=== PATIENT | male | born 1980 | race Caucasian/White ===

== ENCOUNTER 2018-07-27 13:29 | Day surgery (SDC) | payer SELFPAY ==
[~2018-07-27] VITALS: Ht 167.6 cm; Wt 97.0 kg
--- NOTE | 2018-07-27 13:51 | ED Chest Pain ---
General Chief Complaint: Chest Pain Stated Complaint: CHEST PAIN Source: patient Exam Limitations: no limitations History of Present Illness Date Seen by Provider: Jul 27, 2018 Time Seen by Provider: 13:48 Initial Comments ER with reports of sharp epigastric chest pain described as a pinching sensation this began one hour ago while at rest sitting on a couch. He is new to the area moved here from [place]. He has history of coronary stenting 2. One was placed in 2007 and was placed in 2014. He is supposed to be on metoprolol and atorvastatin and Plavix but states that he does not have insurance and is new to the area he's been out of these medications for a couple of weeks. He cannot identify any exacerbating or alleviating factors. He denies nausea. He does report associated dyspnea but no diaphoresis. Also reports a history of pancreatitis. Also has a headache Timing/Duration: 1 hour, constant Severity/Quality: moderate Location: central, epigastric Radiation: epigastric Activities at Onset: none ASA po NEON MOLDER: No NTG SL NEON MOLDER: No Associated Symptoms: No nausea/vomiting; shortness of breath Allergies and Home Medications Allergies Coded Allergies: tramadol (Unverified Allergy, Intermediate, 07/27/18) SEIZURES amoxicillin (Unverified Allergy, Mild, RASH, 07/27/18) gabapentin (Unverified Allergy, Mild, RASH, 07/27/18) Patient Home Medication List Home Medication List Reviewed: Yes Review of Systems Review of Systems Constitutional: see HPI; No chills, No fever EENTM: See HPI Respiratory: See HPI; Denies Cough; Shortness of Air; Denies SOA With Exertion , Denies SOA at Rest Cardiovascular: See HPI, Chest Pain Gastrointestinal: See HPI, Abdominal Pain Genitourinary: No Symptoms Reported Musculoskeletal: no symptoms reported Skin: no symptoms reported Psychiatric/Neurological: No Symptoms Reported Endocrine: No Symptoms Reported Physical Exam Vital Signs Vital Signs - First Documented 07/27/18 07/27/18 13:32 14:00 Temp 98.0 Pulse 115 Resp 15 B/P (MAP) 126/93 (104) Pulse Ox 100 O2 Delivery Room Air O2 Flow Rate 2.00 Capillary Refill : Less Than 3 Seconds Height, Weight, BMI Height: '" Weight: lbs. oz. kg; BMI Method: General Appearance: No Apparent Distress, WD/WN HEENT: PERRL/EOMI, TMs Normal, Normal ENT Inspection Neck: Full Range of Motion, Normal Inspection Respiratory: Chest Non Tender, Lungs Clear, Normal Breath Sounds, No Accessory Muscle Use, No Respiratory Distress Cardiovascular: Regular Rate, Rhythm, Normal Peripheral Pulses Gastrointestinal: Non Tender, Soft Extremity: Normal Capillary Refill, Normal Inspection Neurologic/Psychiatric: Alert, Oriented x3 Skin: Normal Color, Warm/Dry Progress/Results/Core Measures Results/Orders Lab Results Laboratory Tests Test 07/27/18 13:40 07/27/18 15:10 Range/Units White Blood Count 7.3 4.3-11.0 10^3/uL Red Blood Count 4.85 4.35-5.85 10^6/uL Hemoglobin 15.0 13.3-17.7 G/DL Hematocrit 43 40-54 % Mean Corpuscular Volume 88 80-99 FL Mean Corpuscular Hemoglobin 31 25-34 PG Mean Corpuscular Hemoglobin Concent 35 32-36 G/DL Red Cell Distribution Width 12.3 10.0-14.5 % Platelet Count 318 130-400 10^3/uL Mean Platelet Volume 9.5 7.4-10.4 FL Neutrophils (%) (Auto) 59 42-75 % Lymphocytes (%) (Auto) 29 12-44 % Monocytes (%) (Auto) 9 0-12 % Eosinophils (%) (Auto) 3 0-10 % Basophils (%) (Auto) 0 0-10 % Neutrophils # (Auto) 4.2 1.8-7.8 X 10^3 Lymphocytes # (Auto) 2.1 1.0-4.0 X 10^3 Monocytes # (Auto) 0.7 0.0-1.0 X 10^3 Eosinophils # (Auto) 0.2 0.0-0.3 10^3/uL Basophils # (Auto) 0.0 0.0-0.1 10^3/uL Prothrombin Time 12.6 12.2-14.7 SEC INR Comment 0.9 0.8-1.4 Activated Partial Thromboplast Time 25 24-35 SEC D-Dimer 0.37 0.00-0.49 UG/ML Sodium Level 139 135-145 MMOL/L Potassium Level 3.6 3.6-5.0 MMOL/L Chloride Level 107 98-107 MMOL/L Carbon Dioxide Level 22 21-32 MMOL/L Anion Gap 10 5-14 MMOL/L Blood Urea Nitrogen 13 7-18 MG/DL Creatinine 1.10 0.60-1.30 MG/DL Estimat Glomerular Filtration Rate > 60 BUN/Creatinine Ratio 12 Glucose Level 137 H 70-105 MG/DL Calcium Level 9.4 8.5-10.1 MG/DL Corrected Calcium 9.2 8.5-10.1 MG/DL Magnesium Level 2.2 1.8-2.4 MG/DL Total Bilirubin 0.5 0.1-1.0 MG/DL Aspartate Amino Transf (AST/SGOT) 24 5-34 U/L Alanine Aminotransferase (ALT/SGPT) 42 0-55 U/L Alkaline Phosphatase 68 40-136 U/L Myoglobin 30.3 10.0-92.0 NG/ML Troponin I < 0.30 <0.30 NG/ML Total Protein 7.0 6.4-8.2 GM/DL Albumin 4.2 3.2-4.5 GM/DL Lipase 341 H 8-78 U/L Thyroid Stimulating Hormone (TSH) 1.65 0.35-4.94 UIU/ML Urine Color YELLOW Urine Clarity CLEAR Urine pH 5 5-9 Urine Specific [place] 1.020 1.016-1.022 Urine Protein NEGATIVE NEGATIVE Urine Glucose (UA) NEGATIVE NEGATIVE Urine Ketones NEGATIVE NEGATIVE Urine Nitrite NEGATIVE NEGATIVE Urine Bilirubin NEGATIVE NEGATIVE Urine Urobilinogen NORMAL NORMAL MG/DL Urine Leukocyte Esterase 1+ H NEGATIVE Urine RBC (Auto) NEGATIVE NEGATIVE Urine RBC NONE /HPF Urine WBC 2-5 /HPF Urine Crystals NONE /LPF Urine Bacteria NONE /HPF Urine Casts NONE /LPF Urine Mucus SMALL H /LPF Urine Culture Indicated NO Urine Opiates Screen NEGATIVE NEGATIVE Urine Oxycodone Screen NEGATIVE NEGATIVE Urine Methadone Screen NEGATIVE NEGATIVE Urine Propoxyphene Screen NEGATIVE NEGATIVE Urine Barbiturates Screen NEGATIVE NEGATIVE Ur Tricyclic Antidepressants Screen NEGATIVE NEGATIVE Urine Phencyclidine Screen NEGATIVE NEGATIVE Urine Amphetamines Screen NEGATIVE NEGATIVE Urine Methamphetamines Screen NEGATIVE NEGATIVE Urine Benzodiazepines Screen NEGATIVE NEGATIVE Urine Cocaine Screen NEGATIVE NEGATIVE Urine Cannabinoids Screen NEGATIVE NEGATIVE My Orders Orders - KAYLA [employer] Cbc With Automated Diff (07/27/18 13:37) Magnesium (07/27/18 13:37) Chest 1 View, Ap/Pa Only (07/27/18 13:37) Ekg Tracing (07/27/18 13:37) Cardiac Profile 1 (07/27/18 13:37) Comprehensive Metabolic Panel (07/27/18 13:37) Myoglobin Serum (07/27/18 13:37) Protime With Inr (07/27/18 13:37) Partial Thromboplastin Time (07/27/18 13:37) O2 (07/27/18 13:37) Monitor-Rhythm Ecg Trace Only (07/27/18 13:37) Lipid Panel (07/28/18 06:00) Saline Lock/Iv-Start (07/27/18 13:37) Drug Screen Stat (Urine) (07/27/18 13:40) Ua Culture If Indicated (07/27/18 13:40) Thyroid Stimulating Hormone (07/27/18 13:41) Clopidogrel Tablet (Plavix Tablet) (07/27/18 14:00) Ketorolac Injection (Toradol Injection) (07/27/18 14:00) Lipase (07/27/18 13:46) Metoprolol Succinate (Xl) Tab (Toprol Xl (07/27/18 14:00) Fibrin Degradation Products (07/27/18 13:40) Aspirin Chewable Tablet (Baby Aspirin Ch (07/27/18 14:00) Ct Abdomen/Pelvis W (07/27/18 14:15) Iohexol Injection (Omnipaque 350 Mg/Ml 1 (07/27/18 14:30) Ns (Ivpb) (Sodium Chloride 0.9%) (07/27/18 14:30) Contrast Received (Contrast Received) (07/27/18 14:45) Morphine Injection (Morphine Injection (07/27/18 15:30) Medications Given in ED Current Medications Medications Dose Ordered Sig/Faisal Route Start Time Stop Time Status Last Admin Dose Admin Aspirin 324 mg ONCE ONCE PO 07/27/18 14:00 07/27/18 14:02 DC 07/27/18 14:08 324 MG Clopidogrel Bisulfate 75 mg ONCE ONCE PO 07/27/18 14:00 07/27/18 14:01 DC 07/27/18 14:06 75 MG Iohexol 100 ml ONCE ONCE IV 07/27/18 14:30 07/27/18 14:31 DC 07/27/18 14:59 100 ML Ketorolac Tromethamine 15 mg ONCE ONCE IVP 07/27/18 14:00 07/27/18 14:01 DC 07/27/18 14:05 15 MG Metoprolol Succinate 25 mg ONCE ONCE PO 07/27/18 14:00 07/27/18 14:01 DC 07/27/18 14:05 25 MG Morphine Sulfate 4 mg ONCE ONCE IVP 07/27/18 15:30 07/27/18 15:31 DC 07/27/18 16:07 4 MG Sodium Chloride 250 ml ONCE ONCE IV 07/27/18 14:30 07/27/18 14:31 DC 07/27/18 15:00 80 ML Vital Signs/I&O 07/27/18 07/27/18 07/27/18 13:32 13:39 14:00 Temp 98.0 Pulse 115 Resp 15 B/P (MAP) 126/93 (104) Pulse Ox 100 96 O2 Delivery Room Air Room Air Nasal Cannula O2 Flow Rate 2.00 Progress Progress Note : Progress Note 1350-aspirin metoprolol Plavix and Toradol ordered. Heart rate 1:15 sinus no ectopy. Q waves in inferior leads. Blood pressure 130/100. States that he has historically been intolerant of nitroglycerin as it has made him nauseous, vomited and worsened his headache. He would rather not use that at this time because he states urine he has a headache. Departure Communication (Admissions) Time/Spoke to Admitting Phy: 16:[address] Quiles. We will admit, consult cardiology Time/Spoke to Consulting Phy: 16:[address] Bahena, would like Lexiscan stress test for tomorrow, 2-D echocardiogram. Impression Primary Impression: Chest pain Additional Impression: Pancreatitis Disposition: 01 HOME, SELF-CARE Condition: Stable Admissions Decision to Admit Reason: Admit from ER (General) Decision to Admit/Date: Jul 27, 2018 Time/Decision to Admit Time: 16:28 Departure-Patient Inst. Referrals: UNKNOWN (PCP) Primary Care Physician KAYLA TO APRN Jul 27, 2018 13:51
[2018-07-27 13:53] LABS: BASOPHILS % (AUTO) 0 % (0-10); EOSINOPHILS # (AUTO) 0.2 10^3/uL (0.0-0.3); EOSINOPHILS % (AUTO) 3 % (0-10); HEMATOCRIT 43 % (40-54); LYMPHOCYTES # (AUTO) 2.1 X 10^3 (1.0-4.0); LYMPHOCYTES % (AUTO) 29 % (12-44); MEAN CORPUSCULAR HEMOGLOBIN 31 PG (25-34); MEAN CORPUSCULAR HGB CONC 35 G/DL (32-36); MEAN CORPUSCULAR VOLUME 88 FL (80-99); MEAN PLATELET VOLUME 9.5 FL (7.4-10.4); MONOCYTES # (AUTO) 0.7 X 10^3 (0.0-1.0); MONOCYTES % (AUTO) 9 % (0-12); NEUTROPHILS # (AUTO) 4.2 X 10^3 (1.8-7.8); NEUTROPHILS % (AUTO) 59 % (42-75); PLATELET COUNT 318 10^3/uL (130-400); RED BLOOD COUNT 4.85 10^6/uL (4.35-5.85); RED CELL DISTRIBUTION WIDTH 12.3 % (10.0-14.5); WHITE BLOOD COUNT 7.3 10^3/uL (4.3-11.0)
[2018-07-27] MEDS ORDERED: CLOPIDOGREL 75 MG (PLAVIX) TABLET PO ONE (14:00)
[2018-07-27] MEDS ORDERED: KETOROLAC 30 MG/ML VIAL IVP ONE (14:00)
[2018-07-27] MEDS ORDERED: ASPIRIN 81 MG CHEW (CHILDREN'S ASA) PO ONE (14:00)
[2018-07-27 14:09] LABS: FIBRIN DEGRADATION PRODUCTS 0.37 UG/ML (0.00-0.49); INR 0.9 (0.8-1.4); PROTHROMBIN TIME PATIENT 12.6 SEC (12.2-14.7)
[2018-07-27 14:13] LABS: ALANINE AMINOTRANSFERASE 42 U/L (0-55); ALBUMIN 4.2 GM/DL (3.2-4.5); ALKALINE PHOSPHATASE 68 U/L (40-136); BILIRUBIN,TOTAL 0.5 MG/DL (0.1-1.0); BUN/CREATININE RATIO 12; CALCIUM 9.4 MG/DL (8.5-10.1); CARBON DIOXIDE 22 MMOL/L (21-32); CHLORIDE 107 MMOL/L (98-107); GFR ESTIMATED > 60; GLUCOSE 137 MG/DL (70-105); MAGNESIUM 2.2 MG/DL (1.8-2.4); POTASSIUM 3.6 MMOL/L (3.6-5.0); SODIUM 139 MMOL/L (135-145)
[2018-07-27 14:23] LABS: MYOGLOBIN SERUM 30.3 NG/ML (10.0-92.0)
[2018-07-27] MEDS ORDERED: IOHEXOL 350 MG/ML 100 ML (OMNIPAQUE 350) VIAL IV ONE (14:30)
[2018-07-27] MEDS ORDERED: NS 250 ML (IVPB) BAG IV ONE (14:30)
--- NOTE | 2018-07-27 14:38 | Diagnostic Imaging Report ---
INDICATION: Chest pain. Time of exam 2:26 PM No prior studies are available for comparison. The heart size is normal. The pulmonary vascularity is unremarkable. The lungs are clear. No infiltrate, effusion or pneumothorax is detected. Impression: No acute cardiopulmonary process is detected. Dictated by: Dictated on workstation # [id number]
[2018-07-27] MEDS ORDERED: RECEIVED CONTRAST (Hold Metformin) IV SCH (14:45)
--- NOTE | 2018-07-27 15:18 | Diagnostic Imaging Report ---
PROCEDURE: CT abdomen and pelvis with contrast. TECHNIQUE: Multiple contiguous axial images were obtained through the abdomen and pelvis after administration of intravenous contrast. INDICATION: Epigastric pain. History of pancreatitis. COMPARISON: None. FINDINGS: Included portions of the lung bases are clear. CT abdomen: There are few scattered colonic diverticula, but there is no CT evidence of acute diverticulitis. Normal appendix is identified. Small bowel loops are nondistended. The kidneys, adrenal glands, spleen, pancreas, and liver have a normal CT appearance. There is no loculated fluid collection, free fluid, or free air within the abdomen. No abnormal mesenteric or retroperitoneal adenopathy is seen. Bony structures show no acute abnormalities. CT pelvis: Urinary bladder is grossly unremarkable and minimally distended. There is no loculated fluid collection, free fluid, or free air within the pelvis. No abnormal lymph nodes are identified. Bony structures show no acute abnormalities. IMPRESSION: 1. No acute abnormalities within the abdomen or pelvis. 2. Colonic diverticulosis, but no CT evidence of acute diverticulitis. Dictated by: Dictated on workstation # [id number]
[2018-07-27 15:26] LABS: BILIRUBIN,URINE NEGATIVE (NEGATIVE); CLARITY,URINE CLEAR; COLOR,URINE YELLOW; GLUCOSE, URINE (UA) NEGATIVE (NEGATIVE); KETONES,URINE NEGATIVE (NEGATIVE); LEUKOCYTE ESTERASE ,URINE 1+ (NEGATIVE); NITRITE,URINE NEGATIVE (NEGATIVE); PH,URINE 5 (5-9); PROTEIN,URINE NEGATIVE (NEGATIVE); UROBILINOGEN,URINE NORMAL (NORMAL)
[2018-07-27] MEDS ORDERED: morphine INJ 10 MG/ML 1ML (SYR OR VIAL) IVP ONE (15:30)
[2018-07-27 15:51] LABS: AMPHETAMINE SCREEN, URINE NEGATIVE (NEGATIVE); BARBITURATE SCREEN URINE NEGATIVE (NEGATIVE); BENZODIAZEPINES SCREEN URINE NEGATIVE (NEGATIVE); CANNABINOID SCREEN, URINE NEGATIVE (NEGATIVE); COCAINE SCREEN URINE NEGATIVE (NEGATIVE); METHADONE STAT NEGATIVE (NEGATIVE); METHAMPHETAMINE SCREEN URINE S NEGATIVE (NEGATIVE); OPIATE SCREEN URINE NEGATIVE (NEGATIVE); OXYCODONE STAT NEGATIVE (NEGATIVE); PROPOXYPHENE STAT NEGATIVE (NEGATIVE); TRICYCLIC ANTIDEPRESSANTS SCRE NEGATIVE (NEGATIVE)
[2018-07-27 16:42] VITALS: BP 136/95
[2018-07-27] MEDS: morphine INJ 4 MG/ML 1 ML (VIAL/SYRINGE) IV PRN ×2 (17:03→21:10)
[2018-07-27] MEDS: NS IV 1000 ML 1,000 ML IV SCH (17:03)
--- NOTE | 2018-07-27 17:53 | Diagnostic Imaging Report ---
PROCEDURE: US Gallbladder. TECHNIQUE: Multiple real-time grayscale images were obtained over the right upper quadrant in various projections. INDICATION: Pancreatitis. Chest pain. FINDINGS: The pancreas could not be well evaluated due to overlying bowel gas. The liver demonstrates no evidence of a focal intrahepatic abnormality. There is no evidence of intrahepatic biliary ductal dilatation. There is hepatopetal flow in the main portal vein. The gallbladder appears nondistended. No definitive gallstones present. There is no gallbladder wall thickening or evidence of pericholecystic fluid. The common bile duct could not be visualized. The right kidney is nonobstructed. No free fluid evident. IMPRESSION: 1. The pancreas and the common bile duct could not be sonographically demonstrated. 2. There are however no findings to suggest cholelithiasis or cholecystitis or evidence of intrahepatic biliary dilatation. 3. No evidence of free fluid. 4. No focal intrahepatic abnormality. Dictated by: Dictated on workstation # [id number]
[2018-07-27 20:52] VITALS: BP 129/87
[2018-07-28] VITALS (20 sets, daily range): BP systolic 107–145; BP diastolic 65–93
[2018-07-28] MEDS ORDERED: CALCIUM CARBONATE 500 MG (TUMS) TAB.CHEW ONE (00:33)
[2018-07-28] MEDS ORDERED: CALCIUM CARBONATE 500 MG (TUMS) TAB.CHEW PO PRN (00:45)
[2018-07-28] MEDS: NS IV 1000 ML 1,000 ML IV SCH ×3 (01:16→12:42)
[2018-07-28] MEDS: morphine INJ 4 MG/ML 1 ML (VIAL/SYRINGE) IV PRN ×4 (01:17→16:43)
[2018-07-28 06:14] LABS: CHOLESTEROL 190 MG/DL (< 200); HDL CHOLESTEROL 29 MG/DL (40-60); TRIGLYCERIDES 157 MG/DL (<150); VLDL CHOLESTEROL 31 MG/DL (5-40)
[2018-07-28] MEDS ORDERED: CATHETER FLUSH 10 ML SYR IV PRN (07:00)
[2018-07-28] MEDS ORDERED: REGADENOSON 0.4 MG/5 ML SYR (LEXISCAN) IV ONE ×2 (08:01→08:45)
[2018-07-28] MEDS ORDERED: ASPIRIN 81 MG CHEW (CHILDREN'S ASA) PO SCH (09:00)
[2018-07-28] MEDS ORDERED: CLOPIDOGREL 75 MG (PLAVIX) TABLET PO SCH (09:00)
--- NOTE | 2018-07-28 09:52 | Consultation-Cardiology ---
HPI-Cardiology Cardiology Consultation: Date of Consultation 07/28/18 Date of Admission Attending Physician nAila Quiles DO Admitting Physician Judy,Local Physician Consulting Physician Stefany BAHENA MD HPI: Time Seen by Provider: 08:30 Chief Complaint: Chest pain This is a 38-year-old gentleman who complained with persistent chest pain substernal. 06/23. No significant radiation. No other cardiac symptoms associated. No exacerbating or relieving factors. He has history of 2 PCI in 2015. He denies diabetes, active smoking or drug abuse. Persistent chest pain with some improvement with IV morphine. Review of Systems-Cardiology Review of Systems Constitutional: As described under HPI; No As described under HPI, No no symptoms reported, No chills, No fever, No lightheadedness Eyes: No As described under HPI, No no symptoms reported, No blindness, No blurred vision, No contact lenses, No drainage, No decreased acuity, No foreign body sensation, No pain, No vision change Ears/Nose/Throat: No As described under HPI, No no symptoms reported, No chronic hearing loss, No ear discharge, No ear pain, No nasal drainage, No ulcerations Respiratory: No no symptoms reported; As described under HPI; No As described under HPI, No cough, No orthopnea, No shortness of breath, No SOB with excertion Cardiovascular: No no symptoms reported; As described under HPI; No As described under HPI, No chest pain, No edema, No irregular heart rate, No lightheadedness, No palpitations Gastrointestinal: No no symptoms reported, No As described under HPI, No abdomen distended, No abdominal pain, No blood streaked bowels, No constipation , No diarrhea, No nausea, No vomiting, No stool coloration changes Genitourinary: No As described under HPI, No burning, No dysuria, No discharge , No frequency, No flank pain, No hematuria, No urgency Musculoskeletal: No no symptoms reported, No As describe under HPI, No back pain, No gout, No joint pain, No joint swelling, No muscle pain, No muscle stiffness, No neck pain, No other Skin: No no symptoms reported, No As described under HPI, No change in color, No change in hair/nails, No dryness, No lesions, No lumps, No rash, No other, No skin related problems, No ulcerations, No rash on exposed areas, No ulcerations on exposed areas Psychiatric/Neurological: No anxiety, No depression, No seizure, No focal weakness, No syncope Hematologic: No bleeding abnormalities ODE-Kysvxl-Frfupu Hx Patient Social History Alcohol Use: Denies Use Recreational Drug Use: No Smoking Status: Never a Smoker 2nd Hand Smoke Exposure: Yes Recent Foreign Travel: Yes Recent Infectious Disease Expo: No Hospitalization with Isolation: Denies Physical Abuse Screen: No Sexual Abuse: No Past Medical History PMH As described under Assessment. Family Medical History Family History: Cardiovascular disease 19 FATHER 19 MOTHER FH: CHF (congestive heart failure) 19 FATHER FH: throat cancer 19 MOTHER Allergies and Home Medications Allergies Coded Allergies: tramadol (Verified Allergy, Intermediate, 07/27/18) SEIZURES amoxicillin (Verified Allergy, Mild, RASH, 07/27/18) gabapentin (Verified Allergy, Mild, RASH, 07/27/18) Home Medications Aspirin 81 Mg Tablet.dr, 81 MG PO DAILY, (Reported) Aspirin/Acetaminophen/Caffeine 1 Each Powd.pack, 1 PACKET PO UD PRN for HEADACHE , (Reported) Metoprolol Tartrate 50 Mg Tablet, 50 MG PO BID, (Reported) Patient Home Medication List Home Medication List Reviewed: Yes Physical Exam-Cardiology Physical Exam Vital Signs/I&O 07/28/18 07/28/18 07/28/18 07/28/18 01:00 04:05 07:00 08:31 Temp 98.9 Pulse 88 76 81 80 Resp 18 B/P (MAP) 131/82 (98) 126/85 (99) Pulse Ox 98 96 O2 Delivery Room Air 07/28/18 07/28/18 07/28/18 07/28/18 08:35 10:00 10:07 11:40 Temp 96.7 96.1 Pulse 101 78 82 Resp 16 16 B/P (MAP) 145/93 (110) 137/90 (106) 144/84 (104) Pulse Ox 96 98 92 O2 Delivery Room Air Room Air Room Air 07/28/18 00:00 Intake Total 1460 ml Balance 1460 ml Capillary Refill : Less Than 3 Seconds Constitutional: appears stated age, AAO x 3; No apparent distress; well- developed, well-nourished HEENT: PERRL; No normal ENT inspection, No TMs normal, No pharynx normal, No scleral icterus (R), No scleral icterus (L), No pale conjunctivae (R), No pale conjunctivae (L), No photophobia, No TM abnormal (R), No TM abnormal (L), No pharyngeal erythema, No tonsillar exudate, No other, No discharge, No EOMI; hearing is well preserved; No hard of hearing; oral hygience is good; No ulceration, No xanthelasmas are seen Neck: No non-tender, No full range of motion, No supple, No normal inspection, No carotid bruit, No limited range of motion, No lymphadenopathy (R), No lymphadenopathy (L), No tender lateral, No tender midline, No thyromegaly, No other; carotid pulses are 2 + bilaterally; No with good upstrokes Respiratory: No accessory muscle use, No respiratory distress, No chest tender , No chest expansion is symmetric; chest is bilaterally symmetric; No lungs clear to percussion; lungs clear to auscultation; No crackles, No rhonchi, No rales, No stridor, No wheezing, No pleural rub, No other Cardiovascular: regular rate-rhythm; No irregularly irregular, No extra beats, No parasternal heave is noted, No JVD, No edema, No bradycardia, No tachycardia , No point of maximal impulse, No cardiac thrills are palpable; S1 and S2; No gallop/S3, No gallop/S4, No diastolic murmur, No systolic murmur, No friction rub, No click, No other Gastrointestinal: No tender, No soft, No round, No distended, No pulsatile mass , No organomegaly, No guarding, No rebound, No tenderness, No hernia, No mass, No audible bowel sounds, No abnormal bowel sounds, No abdominal bruits, No spleenomegaly, No other Rectal: deferred Extremities: No normal range of motion, No non-tender, No normal inspection, No pedal edema, No calf tenderness, No normal capillary refill, No pelvis stable , No calf tenderness, No inflammation, No pedal edema, No slow capillary refill , No swelling, No other, No abrasion, No clubbing, No cyanosis, No ecchymosis, No laceration, No no lower extremity edema bilateral, No significant edema, No tenderness, No wound Neurologic/Psychiatric: No statistical machine servicer II-XII nml as tested; no motor/sensory deficits , alert, normal mood/affect, oriented x 3; No abnormal cerebellar tests, No abnormal statistical machine servicer II-XII, No abnormal gait, No aphasia, No EOM palsy, No facial droop , No motor weakness, No sensory deficit, No depressed affect, No disoriented x 3 , No other, No grossly intact; power is 5/5 both on sides Skin: No normal color, No warm/dry, No cyanosis, No cool, No diaphoresis, No damp, No ecchymosis, No jaundice, No mottled, No pallor, No rash, No tattoos/ piercings, No ulcerations, No rash on exposed areas, No ulcerations on exposed areas, No other Data Review Labs Laboratory Tests 07/27/18 13:40: White Blood Count 7.3, Red Blood Count 4.85, Hemoglobin 15.0, Hematocrit 43, Mean Corpuscular Volume 88, Mean Corpuscular Hemoglobin 31, Mean Corpuscular Hemoglobin Concent 35, Red Cell Distribution Width 12.3, Platelet Count 318, Mean Platelet Volume 9.5, Neutrophils (%) (Auto) 59, Lymphocytes (%) (Auto) 29, Monocytes (%) (Auto) 9, Eosinophils (%) (Auto) 3, Basophils (%) (Auto) 0, Neutrophils # (Auto) 4.2, Lymphocytes # (Auto) 2.1, Monocytes # (Auto) 0.7, Eosinophils # (Auto) 0.2, Basophils # (Auto) 0.0, Prothrombin Time 12.6, INR Comment 0.9, Activated Partial Thromboplast Time 25, D-Dimer 0.37, Sodium Level 139, Potassium Level 3.6, Chloride Level 107, Carbon Dioxide Level 22, Anion Gap 10, Blood Urea Nitrogen 13, Creatinine 1.10, Estimat Glomerular Filtration Rate > 60, BUN/Creatinine Ratio 12, Glucose Level 137H, Calcium Level 9.4, Corrected Calcium 9.2, Magnesium Level 2.2, Total Bilirubin 0.5, Aspartate Amino Transf (AST/SGOT) 24, Alanine Aminotransferase (ALT/SGPT) 42, Alkaline Phosphatase 68, Myoglobin 30.3, Troponin I < 0.30, Total Protein 7.0, Albumin 4.2, Lipase 341H, Thyroid Stimulating Hormone (TSH) 1.65 07/27/18 15:10: Urine Color YELLOW, Urine Clarity CLEAR, Urine pH 5, Urine Specific [place] 1.020, Urine Protein NEGATIVE, Urine Glucose (UA) NEGATIVE, Urine Ketones NEGATIVE, Urine Nitrite NEGATIVE, Urine Bilirubin NEGATIVE, Urine Urobilinogen NORMAL, Urine Leukocyte Esterase 1+H, Urine RBC (Auto) NEGATIVE, Urine RBC NONE , Urine WBC 2-5, Urine Crystals NONE, Urine Bacteria NONE, Urine Casts NONE, Urine Mucus SMALLH, Urine Culture Indicated NO, Urine Opiates Screen NEGATIVE, Urine Oxycodone Screen NEGATIVE, Urine Methadone Screen NEGATIVE, Urine Propoxyphene Screen NEGATIVE, Urine Barbiturates Screen NEGATIVE, Ur Tricyclic Antidepressants Screen NEGATIVE, Urine Phencyclidine Screen NEGATIVE, Urine Amphetamines Screen NEGATIVE, Urine Methamphetamines Screen NEGATIVE, Urine Benzodiazepines Screen NEGATIVE, Urine Cocaine Screen NEGATIVE, Urine Cannabinoids Screen NEGATIVE 07/27/18 20:05: Troponin I < 0.30 07/28/18 01:52: Troponin I < 0.30 07/28/18 05:03: Triglycerides Level 157H, Cholesterol Level 190, LDL Cholesterol Direct 145H, VLDL Cholesterol 31, HDL Cholesterol 29L, Lipase 49 ECG Impression ECG Initial ECG Rhythm: Normal Sinus A/P-Cardiology Assessment/Admission Diagnosis Unstable angina, History of CAD Plan Unstable angina- ACS ruled out with negative serial troponin. Negative EKG. Nuclear stress test today. If abnormal will require coronary angiography. History of CAD: Continue aspirin, statin, beta marguerite, lisinopril. We will follow-up as an outpatient. Thank you for your consultation. Please call me if you have any questions. Trina Bahena MD, FACP, FACC, FSCAI, FHRS, CCDS Interventional Cardiology Cardiac Electrophysiology Vascular Medicine and Endovascular Interventions Clinical Quality Measures AMI/AHF: ASA po Prior to arrival: No DVT/VTE Risk/Contraindication: Risk Factor Score Per Nursin RFS Level Per Nursing on Admit: 2=Moderate Stefany BAHENA MD Jul 28, 2018 9:52 am
--- NOTE | 2018-07-28 09:53 | Cardiology Stress Test Report ---
Stress Test Report Type of NM Stress Test: Test Type: LEXISCAN 0.4MG/5ML Date of Procedure/Referring: Date of Procedure: Jul 28, 2018 PCP Anila Quiles DO Admitting Physician No,Local Physician Indications: Chest pain Baseline Heart Rate: 79 Baseline Blood Pressure: Blood Pressure Systolic: 126 Blood Pressure Diastolic: 85 Baseline EKG: Baseline EKG: sinus rhythm Summary & Conclusion: Summary: The patient was brought to the stress lab after informed consent was taken. Stress test was performed according to the Lexiscan protocol. 0.4 mg of IV Lexiscan was given. Low-grade exercise was performed. Baseline EKG showed sinus rhythm at 79 BPM. Initial blood pressure was 126/85 mmHg. Maximum heart rate was 102 bpm and blood pressure 145/93 mmHg. Patient did not have any chest pain, arrhythmias or ST segment changes during the stress test. 10.99 mCi of Myoview were given for rest imaging and 32 mCi of Myoview given for stress imaging. Transient ischemic dilatation score 1.12, EF 66 percent. Normal wall motion. Fixed defect in the apex. Reversible defect in the anterior/anterior septal region. Conclusion: Pharmacological stress test was negative for ischemia. Normal LV function with no wall motion abnormalities. Evidence of previous anterior-apical infarct. Evidence of anterior-septal ischemia - Coronary angiography is recommended. Stefany GLOVER MD Jul 28, 2018 09:53
[2018-07-28] MEDS ORDERED: ASPI1POW PO (10:04)
[2018-07-28] MEDS ORDERED: ASPI-983 PO (10:04)
[2018-07-28] MEDS ORDERED: METO50TA15 PO ×2 (10:09→14:13)
[2018-07-28] MEDS ORDERED: LORazepam INJ 2 MG/ML (ATIVAN) VIAL IVP PRN (10:15)
[2018-07-28] MEDS ORDERED: HEParin 1000 UNIT/ML (10ML VIAL) FOR BOLUS ONE (10:33)
[2018-07-28] MEDS ORDERED: LIDOCAINE 1% INJ 20 ML 20 ML VIAL ONE (10:33)
[2018-07-28] MEDS ORDERED: NS IV 1000 ML 3,000 ML ONE (10:34)
--- NOTE | 2018-07-28 10:57 | History & Physical-Hospitalist ---
History of Present Illness HPI/Chief Complaint CC: Chest pain HPI: This is a 38-year-old white male who previously had an WI 30 years old status post stent placement and again remotely had another WI with another stent placed who presented to the ER with chest pain. Was nonspecific and not really accompanied by any concerning signs but due to the risk factors he was placed in observation status and monitored. Troponin remained normal. Patient just had an abnormal cardiac stress test so he will have cardiac catheterization at noon today. Patient reports his anxiety is overwhelming currently so will give anxiolytics. Source: patient, RN/MD Exam Limitations: no limitations Date Seen 07/28/18 Time Seen by Provider: 10:00 Attending Physician Anila Quiles DO PCP No,Local Physician Referring Physician Date of Admission Jul 27, 2018 at 16:27 Home Medications & Allergies Home Medications Reviewed patient Home Medication Reconciliation performed by pharmacy medication reconciliations qc lab technician and/or nursing. Patients Allergies have been reviewed. Allergies Allergies Coded Allergies tramadol (Verified Allergy, Intermediate, 07/27/18) SEIZURES amoxicillin (Verified Allergy, Mild, RASH, 07/27/18) gabapentin (Verified Allergy, Mild, RASH, 07/27/18) Past Pfhhrrr-Qvqdja-Iiduvr Hx Past Med/Social Hx: Reviewed Nursing Past Med/Soc Hx, Reviewed and Corrections made Patient Social History Marrital Status: cohabiting Alcohol Use: Denies Use Recreational Drug Use: No Smoking Status: Never a Smoker 2nd Hand Smoke Exposure: Yes Physical Abuse Screen: No Sexual Abuse: No Recent Foreign Travel: Yes Contact w/other who traveled: No Recent Hopitalizations: No Recent Infectious Disease Expo: No Seasonal Allergies Seasonal Allergies: No Past Medical History Surgeries: Coronary Stent Cardiac: Heart Attack, High Cholesterol, Hypertension Gastrointestinal: Pancreatitis History of Blood Disorders: No Family History Cardiovascular disease 19 FATHER 19 MOTHER FH: CHF (congestive heart failure) 19 FATHER FH: throat cancer 19 MOTHER Review of Systems Constitutional: see HPI EENTM: no symptoms reported Respiratory: no symptoms reported Cardiovascular: chest pain Gastrointestinal: no symptoms reported Genitourinary: no symptoms reported Musculoskeletal: no symptoms reported Skin: no symptoms reported Psychiatric/Neurological: No Symptoms Reported All Other Systems Reviewed Negative Unless Noted: Yes Physical Exam Physical Exam Vital Signs Vital Signs - First Documented 07/27/18 07/27/18 13:32 14:00 Temp 98.0 Pulse 115 Resp 15 B/P (MAP) 126/93 (104) Pulse Ox 100 O2 Delivery Room Air O2 Flow Rate 2.00 Capillary Refill : Less Than 3 Seconds Height, Weight, BMI Height: 5'6.00" Weight: 213lbs. 13.4oz. 96.349336eg; 34.5 BMI Method:Estimated General Appearance: No Apparent Distress, WD/WN, Chronically ill, Obese Eyes: Bilateral Eye Normal Inspection, Bilateral Eye PERRL HEENT: PERRL/EOMI, TMs Normal, Normal ENT Inspection, Pharynx Normal Neck: Full Range of Motion, Normal Inspection, Non Tender, Supple, Carotid Bruit Respiratory: Chest Non Tender, Lungs Clear, Normal Breath Sounds, No Accessory Muscle Use, No Respiratory Distress Cardiovascular: Regular Rate, Rhythm, No Edema, No Gallop, No JVD, No Murmur, Normal Peripheral Pulses Gastrointestinal: Normal Bowel Sounds, No Organomegaly, No Pulsatile Mass, Non Tender, Soft Back: Normal Inspection, No CVA Tenderness, No Vertebral Tenderness Extremity: Normal Capillary Refill, Normal Inspection, Normal Range of Motion, Non Tender, No Calf Tenderness, No Pedal Edema Neurologic/Psychiatric: Alert, Oriented x3, No Motor/Sensory Deficits, Normal Mood/Affect, Other (anxious) Skin: Normal Color, Warm/Dry Lymphatic: No Adenopathy Results Results/Procedures Labs Laboratory Tests 07/27/18 13:40 Patient resulted labs reviewed. Assessment/Plan Admission Diagnosis Chest pain in known early CAD patient Plan: Cardiac cath Admission Status: Observation Diagnosis/Problems Diagnosis/Problems (1) Chest pain Status: Acute Qualifiers: Chest pain type: unspecified Qualified Codes: R07.9 - Chest pain, unspecified (2) Anxiety Status: Chronic Clinical Quality Measures AMI/AHF: ASA po Prior to arrival: No DVT/VTE Risk/Contraindication: Risk Factor Score Per Nursin RFS Level Per Nursing on Admit: 2=Moderate ANILA QUILES DO Jul 28, 2018 10:57
[2018-07-28] MEDS ORDERED: MIDAZOLAM 5 MG/5 ML (VERSED) VIAL ONE (11:10)
[2018-07-28] MEDS ORDERED: fentaNYL INJECTION 100 MCG/2 ML AMP ONE (11:10)
[2018-07-28] MEDS ORDERED: VERAPAMIL 5 MG/2 ML (CALAN) VIAL IV ONE (11:10)
[2018-07-28] MEDS ORDERED: NITRO DRIP 25000 MCG/D5W 250 ML IV ONE (11:10)
[2018-07-28] MEDS ORDERED: NS IV 1000 ML 1,000 ML IV SCH (12:40)
--- NOTE | 2018-07-28 12:40 | Cardiac Procedure Note-CS/ASA ---
Pre-Procedure Note Pre-Op Procedure Note H&P Reviewed The H&P was reviewed, patient examined and no changes noted. Date H&P Reviewed: Jul 28, 2018 Time H&P Reviewed: 12:00 Conscious Sedation Pre-Proced Time Reviewed: 12:00 ASA Class: 3 Airway Mallampati Classification: ([place] appropriate class) I. II. III, IV Lungs Heart ASA score ASA 1: a normal healthy patient ASA 2: a patient with a mild systemic disease (mid diabetes, controlled hypertension, obesity ASA 3: a patient with a severe systemic disease that limits activity (angina , COPD, prior Myocardial infarction) ASA 4: a patient with an incapacitating disease that is a constant threat to life (CHF, renal failure) ASA 5: a moribund patient not expected to survive 24 hrs. (ruptured aneurysm) ASA 6: a declared brain patient whose organs are being harvested. For emergent operations, add the letter E after the classification Grade 1 Sedation Plan: Analgesia, Amnesia, Plan communicated to team members, Discussed options with patient/fam, Discussed risks with patient/fam Note The patient is an appropriate candidate to undergo the planned procedure, sedation, and anesthesia. The patient immediately re-assessed prior to indication. Stefany GLOVER MD Jul 28, 2018 12:40 pm
[2018-07-28] MEDS ORDERED: PATIENT MAY USE OWN MEDS, ALL PO SCH (12:45)
--- NOTE | 2018-07-28 12:45 | Coronary Angiography Report ---
Coronary Angiography Report DATE OF PROCEDURE: 07/28/18 INDICATION: Unstable angina, abnormal nuclear stress test. PREOPERATIVE DIAGNOSIS: Unstable angina, abnormal nuclear stress test. POSTOPERATIVE DIAGNOSIS: Patent LAD stent. No significant CAD noted. HISTORY: This is a 38-year-old gentleman who has previous history of PCI 2. He presented with persistent chest pain. Troponin was negative 2. Nuclear stress test showed evidence of old apical infarct, however, anterior septal reversible ischemia was noted. Therefore, the patient was scheduled for coronary angiography. PROCEDURES PERFORMED: 1.Coronary angiography. 2.Left heart catheterization. 3. Aortic arch angiogram. COMPLICATIONS: None. SPECIMENS: None. ESTIMATED BLOOD LOSS: 10 mL ANESTHESIA: Conscious sedation ANTICOAGULATION: IV heparin CONTRAST: 98 cc. FLUOROSCOPY: 7.7 minutes. FLOUROSCOPY DOSE: 695 mgy. PROCEDURE DETAILS: The patient is a 38 male and was brought to the director of labor relations after informed consent was taken. All the risks and complications were explained in detail; this included the risk of bleeding, vascular damage, stroke , HI and even . The patient was draped and prepped in the usual sterile fashion. Access was gained in the right radial artery with a 6 [place] sheath. Coronary angiography and left heart catheterization was performed with the [place] catheter. FINDINGS: 1.Left main: Patent. 2.LAD: Patent proximal LAD stent. No significant disease noted. 3.Left circumflex artery: Patent. 4.RCA: Patent. 5.Left heart catheterization: Aortic pressure 107/79 mmHg. LV pressure 110/19 mmHg. LVEDP 25 mmHg. Normal LV function with mild apical hypokinesis was noted. No other wall motion abnormalities. No gradient across the aortic valve. 6. Aortic arch angiogram: No evidence of dissection or aneurysm. Patent proximal segments of the great arteries including brachiocephalic artery, common carotid artery, left subclavian artery. CONCLUSIONS: Patent stent in the LAD. No other CAD noted. Normal LV function with elevated LVEDP noted which suggest diastolic dysfunction. Continue secondary prevention measures. Trina Bahena MD, FACP, FACC, [facility] Interventional Cardiology Stefany BAHENA MD Jul 28, 2018 12:45 pm
[2018-07-28] MEDS ORDERED: ATOR20TA66 PO (14:13)
[2018-07-28] MEDS ORDERED: LISI-556 PO (14:13)
[2018-07-28] MEDS ORDERED: ATORVASTATIN 20 MG (LIPITOR) TABLET PO SCH (21:00)
[2018-07-29] MEDS ORDERED: lisINopril 5 MG (PRINIVIL) TABLET PO SCH (09:00)
[2018-07-29] MEDS ORDERED: lisINopril 40 MG (PRINIVIL) TABLET PO SCH (09:00)
== END 2018-07-28 17:25 | disposition home or self-care (01) ==
LOC: ER 13:30 → 4TH 16:27 → UNDOADMOB 16:27 → CATH 16:42 → 4TH 16:42 → UNDODISOB 07-28 17:25 → CATH 07-28 17:25
PROVIDERS: ATTEND Internal Medicine
DX: I25.110 Atherosclerotic heart disease of native coronary artery with unstable angina pectoris (principal); Z95.5 Presence of coronary angioplasty implant and graft; K85.90 Acute pancreatitis without necrosis or infection, unspecified; I08.0 Rheumatic disorders of both mitral and aortic valves; I25.2 Old myocardial infarction; I10 Essential (primary) hypertension; E78.00 Pure hypercholesterolemia, unspecified; F41.9 Anxiety disorder, unspecified; Z79.82 Long term (current) use of aspirin; Z79.899 Other long term (current) drug therapy
CPT/HCPCS: 36221; 36415; 71045; 74177; 76705; 78452; 80053; 80061; 80306; 81000; 83690; 83735; 83874; 84443; 84484; 85025; 85379; 85610; 85730; 93005; 93017; 93041; 93306; 93458; 96374; 96375; G0378

== ENCOUNTER 2018-08-02 10:25 | Emergency (ER) | payer SELFPAY ==
[~2018-08-02] VITALS: Ht 167.6 cm; Wt 96.6 kg
[~2018-08-02 10:25] MED LIST: ASPI-983 PO; ASPI1POW PO; ATOR20TA66 PO; LISI-556 PO; METO50TA15 PO
--- NOTE | 2018-08-02 11:44 | ED Upper Extremity ---
General Chief Complaint: Upper Extremity Stated Complaint: R ARM PAIN AFTER HEART CATH Nursing Triage Note: ARRIVED VIA AMB TO TRIAGE WITHOUT DIFFICULTY. COMPLAINS OF RIGHT LOWER ARM PAIN SINCE TUESDAY. STATES HE HAD A HEART CATH LAST TUESDAY AND THE CATH WENT THRU HIS RIGHT ARM. Nursing Sepsis Screen: No Definite Risk History of Present Illness Date Seen by Provider: Aug 02, 2018 Time Seen by Provider: 11:35 Initial Comments 38 year old male presents for right forearm pain that began yesterday. He had a heart catheterization on 07/28/[address] Glover, access was gained through the right radial artery. He had no forearm pain after the catheterization, he also had a peripheral IV in the right forearm proximal to the cath site. Due to financial constraints, he has not began taking the Plavix or Metroprolol that he was prescribed at discharge. He does not take aspirin and is unable to take ibuprofen due to an allergy. He reports calling the heart center, and being told to come to the emergency department for evaluation. He did not contact Dr. Glover's office, as his appt is in late August. He does not have a primary care provider. His main complaint is a feeling of "fullness and pain" in the right mid forearm. it is positional. He denies feeling the right upper extremity is cool, decreased sensation, or any associated weakness. A stent was not placed during his catheterization, he does report previous heart catheterizations with stents that the femoral artery was always the access site. He denies taking pain medication prior to arrival for his symptoms. Onset: yesterday Pain/Injury Location: right forearm Method of Injury: other (post cardiac catheterization right forearm access site ) Allergies and Home Medications Allergies Coded Allergies: tramadol (Verified Allergy, Intermediate, 07/27/18) SEIZURES amoxicillin (Verified Allergy, Mild, RASH, 07/27/18) gabapentin (Verified Allergy, Mild, RASH, 07/27/18) Home Medications Aspirin 81 Mg Tablet., 81 MG PO DAILY, (Reported) Atorvastatin Calcium 20 Mg Tablet, 20 MG PO HS Prescribed by: EMETERIO NICOLE on 07/28/18 1413 Lisinopril 5 Mg Tablet, 5 MG PO DAILY@0900 Prescribed by: EMEETRIO NICOLE on 07/28/18 1413 Metoprolol Tartrate 50 Mg Tablet, 50 MG PO BID Prescribed by: EMETERIO NICOLE on 07/28/18 1413 Patient Home Medication List Home Medication List Reviewed: Yes Review of Systems Constitutional: no symptoms reported, see HPI Cardiovascular: see HPI, Hx of Intervention (heart catheterization 07/28/18) Musculoskeletal: see HPI, muscle pain (right upper extremity, forearm), muscle stiffness Skin: see HPI, change in color (ecchymosis, right forearm) All Other Systems Reviewed Negative Unless Noted: Yes Past Jehqwmp-Vlgzas-Gzpsqw Hx Past Med/Social Hx: Reviewed Nursing Past Med/Soc Hx Patient Social History 2nd Hand Smoke Exposure: Yes Recent Foreign Travel: No Contact w/Someone Who Travel: No Recent Infectious Disease Expo: No Recent Hopitalizations: No Seasonal Allergies Seasonal Allergies: No Past Medical History Surgeries: Yes (HEART CATH) Coronary Stent Respiratory: Yes Asthma Cardiac: Yes (HEART STENTS X2- 1 IN 2007, 1 IN 2014) Heart Attack, High Cholesterol, Hypertension Neurological: No Genitourinary: No Gastrointestinal: Yes Pancreatitis Musculoskeletal: No Endocrine: No HEENT: No Cancer: No Psychosocial: No Integumentary: No Blood Disorders: No Family Medical History Cardiovascular disease 19 FATHER 19 MOTHER FH: CHF (congestive heart failure) 19 FATHER FH: throat cancer 19 MOTHER Physical Exam Vital Signs Vital Signs - First Documented 08/02/18 10:45 Temp 98.2 Pulse 93 Resp 16 B/P (MAP) 131/87 (102) Pulse Ox 96 O2 Delivery Room Air Capillary Refill : Less Than 3 Seconds Height, Weight, BMI Height: 5'6.00" Weight: 213lbs. 13.4oz. 96.152491xu; 34.5 BMI Method:Stated General Appearance: WD/WN, no apparent distress Neck: non-tender, full range of motion, supple, normal inspection Cardiovascular: normal peripheral pulses, regular rate, rhythm, no murmur Respiratory: chest non-tender, lungs clear, normal breath sounds Gastrointestinal: normal bowel sounds, non tender, soft Shoulder: normal inspection, non-tender, no evidence of injury, normal ROM Elbow/Forearm: normal inspection, non-tender, no evidence of injury, normal ROM , Right Wrist: Yes normal inspection, Yes non-tender, Yes no evidence of injury, Yes normal ROM Hand: normal inspection, non-tender, no evidence of injury, normal ROM, Right Neurologic/Tendon: normal sensation, normal motor functions, normal tendon functions Neurologic/Psychiatric: no motor/sensory deficits, alert, normal mood/affect, oriented x 3 Skin: normal color, warm/dry, other (Right UE pink, warm and dry, temperature symmetric with left. Radial and Brachial pulse 2 +, Ulnar pulse 1+. Immediate return of color to right hand with modified Ajay test) Resisted flex/ext of the fingers, wrist, elbow, shoulder V/V. Resisted Pronation /Supination of forearm V/V. Progress/Results/Core Measures Results/Orders My Orders Orders - JESSE CASTILLO Us Right Up Ext Arterial [id number] (08/02/18 11:45) Clopidogrel Tablet (Plavix Tablet) (08/02/18 11:45) Acetaminophen Tablet/Caplet (Tylenol T (08/02/18 12:10) Medications Given in ED Current Medications Medications Dose Ordered Sig/Faisal Route Start Time Stop Time Status Last Admin Dose Admin Clopidogrel Bisulfate 75 mg ONCE ONCE PO 08/02/18 11:45 08/02/18 11:47 DC 08/02/18 11:54 75 MG Vital Signs/I&O 08/02/18 10:45 Temp 98.2 Pulse 93 Resp 16 B/P (MAP) 131/87 (102) Pulse Ox 96 O2 Delivery Room Air Blood Pressure Mean: 102 Progress Progress Note : Time: 11:35 Progress Note Initial evaluation completed. Other than minimal ecchymosis at the cannulation site right forearm, his exam is essentially normal right upper extremity with no neuro and vascular compromise detected. In light of the fact he has not been on anticoagulants, we will consider an ultrasound. [address] Glover by phone, reviewed the patient's assessment findings. Recommended arterial ultrasound of the right upper extremity and Plavix 75 mg by mouth. Plan was discussed with the patient and he agreed with this. 1210 patient reporting pain in right forearm to be 8/10, will administer Tylenol 650 mg orally. 1255 per it telecom technician, no venous or arterial occlusions noted right upper extremity. Results were discussed with the patient. 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 Will provide him a note to be off work for today and tomorrow. Discharge instructions and return precautions reviewed with him. Diagnostic Imaging Diagonstic Imaging: Ultrasound Comments NAME: ANNALISA OLIVIER [facility] REC#: [id number] PT STATUS: REG ER : 1980 PHYSICIAN: JESSE CASTILLO ADMIT DATE: 08/02/18/ER Draft Date of Exam:08/02/18 US RIGHT UP EXT ARTERIAL [id number] INDICATION: Right arm pain, four days post heart catheterization. TECHNIQUE: Multiple real time ya scale sonographic images along with duplex Doppler evaluation was obtained of the right upper extremity. CORRELATION STUDY: None FINDINGS: The area of recent access port in the radial artery and vein demonstrates a patency of the vessels. Normal pulsatility. No soft tissue fluid collections or findings suggestive of the presence of pseudoaneurysm and/or hematoma. IMPRESSION: 1.Limited Doppler assessment of the right upper extremity in the area of recent percutaneous access demonstrates a patency of the right radial artery and vein. No evidence to suggest significant of pseudoaneurysm, thrombus formation or soft tissue hematoma. Dictated on workstation # [id number] Dict: 08/02/18 1313 Trans: 08/02/18 1320 CV [id number] Interpreted by: STEVEN WILLIS DO Electronically signed by: Reviewed: Reviewed by Me Departure Impression Primary Impression: Forearm pain Qualified Codes: M79.631 - Pain in right forearm Additional Impression: right arm pain post cardiac catheterization Disposition: 01 HOME, SELF-CARE Condition: Improved Departure-Patient Inst. Decision time for Depature: 12:55 Referrals: NO,LOCAL PHYSICIAN (PCP/Family) Primary Care Physician Patient Instructions: Cardiac Catheterization (DC) Add. Discharge Instructions: Begin taking the Plavix and metoprolol as prescribed at her time of discharge. You may take Tylenol 650 mg every 6 hours as needed for pain. Alternate between ice and warm moist compresses to the right forearm. Follow-up with Dr. Glover if symptoms are not improving or worsen [phone] Return to emergency Department if pain worsens, right hand or wrist become cold to touch, right hand or wrist become pale, or new complaints. All discharge instructions reviewed with patient and/or family. Voiced understanding. Work/School Note: Work Release Form Date Seen in the Emergency Department: Aug 02, 2018 Return to Work: Aug 04, 2018 Restrictions: No Restrictions Copy Copies To 1: Stefany GLOVER MD, AMY ARNP Aug 02, 2018 11:44
[2018-08-02] MEDS ORDERED: CLOPIDOGREL 75 MG (PLAVIX) TABLET PO ONE (11:45)
[2018-08-02] MEDS ORDERED: ACETAMINOPHEN 325 MG TABLET PO STA (12:10)
[2018-08-02 13:15] VITALS: BP 140/89
--- NOTE | 2018-08-02 13:20 | Diagnostic Imaging Report ---
INDICATION: Right arm pain, four days post heart catheterization. TECHNIQUE: Multiple real time ya scale sonographic images along with duplex Doppler evaluation was obtained of the right upper extremity. CORRELATION STUDY: None FINDINGS: The area of recent access port in the radial artery and vein demonstrates a patency of the vessels. Normal pulsatility. No soft tissue fluid collections or findings suggestive of the presence of pseudoaneurysm and/or hematoma. IMPRESSION: 1.Limited Doppler assessment of the right upper extremity in the area of recent percutaneous access demonstrates a patency of the right radial artery and vein. No evidence to suggest significant of pseudoaneurysm, thrombus formation or soft tissue hematoma. Dictated by: Dictated on workstation # [id number]
== END 2018-08-02 13:15 | disposition home or self-care (01) ==
LOC: EDUNIT# 10:25 → ER 10:26
DX: G89.18 Other acute postprocedural pain (principal); M79.631 Pain in right forearm; J45.909 Unspecified asthma, uncomplicated; E78.00 Pure hypercholesterolemia, unspecified; I10 Essential (primary) hypertension; Z82.49 Family history of ischemic heart disease and other diseases of the circulatory system; Z80.0 Family history of malignant neoplasm of digestive organs; Z87.19 Personal history of other diseases of the digestive system; Z98.890 Other specified postprocedural states; Z88.6 Allergy status to analgesic agent; Z88.0 Allergy status to penicillin; Z88.8 Allergy status to other drugs, medicaments and biological substances; Z79.82 Long term (current) use of aspirin; Z77.22 Contact with and (suspected) exposure to environmental tobacco smoke (acute) (chronic); Z95.5 Presence of coronary angioplasty implant and graft
CPT/HCPCS: 93931; 99283

== ENCOUNTER 2019-02-27 10:37 | Emergency (ER) | payer SELFPAY ==
[~2019-02-27] VITALS: Ht 167.6 cm; Wt 99.8 kg
--- NOTE | 2019-02-27 11:25 | ED Integumentary General ---
General Chief Complaint: Laceration Stated Complaint: FINGER LAC Nursing Triage Note: PT AMB TO TRIAGE WITH COMPLAINT OF FINGER LACERATION. PT STATES HAPPENED LAST NIGHT AROUND 11 PM. STATES EMS WAS CALLED DUE TO HIM PASSING OUT FROM THE SIGHT OF BLOOD. PT STATES HE CUT IT WHILE WORKING ON HIS GUITAR. DOES NOT KNOW WHEN LAST TETANUS WAS. Source: patient Exam Limitations: no limitations History of Present Illness Date Seen by Provider: Feb 27, 2019 Time Seen by Provider: 11:21 Initial Comments 38-year-old male who presents to the emergency room with complaints of a right index finger laceration. He reports that he was working on a guitar last night around 11:00 with a pocketknife when the blade closed on to his right index finger. He is not up-to-date on his tetanus vaccine. He has a 1.5 semicircular superficial laceration to his right index finger. Timing/Duration: yesterday Location: hands (right index finger) Associated Symptoms: denies symptoms Allergies and Home Medications Allergies Coded Allergies: tramadol (Verified Allergy, Intermediate, 07/27/18) SEIZURES amoxicillin (Verified Allergy, Mild, RASH, 07/27/18) gabapentin (Verified Allergy, Mild, RASH, 07/27/18) Home Medications Aspirin 81 Mg Tablet.dr, 81 MG PO DAILY, (Reported) Atorvastatin Calcium 20 Mg Tablet, 20 MG PO HS Prescribed by: EMETERIO NICOLE on 07/28/18 1413 Lisinopril 5 Mg Tablet, 5 MG PO DAILY@0900 Prescribed by: EMETERIO NICOLE on 07/28/18 1413 Metoprolol Tartrate 50 Mg Tablet, 50 MG PO BID Prescribed by: EMETERIO NICOLE on 07/28/18 1413 Patient Home Medication List Home Medication List Reviewed: Yes Review of Systems Review of Systems Constitutional: see HPI; No chills, No fever Skin: see HPI, other (laceration to left index finger.) All Other Systems Reviewed Negative Unless Noted: Yes Past Ehwqnfa-Nuozpo-Vqzjzc Hx Past Med/Social Hx: Reviewed Nursing Past Med/Soc Hx Patient Social History Alcohol Use: Occasionally Uses Recreational Drug Use: No Smoking Status: Never a Smoker 2nd Hand Smoke Exposure: Yes Recent Foreign Travel: No Contact w/Someone Who Travel: No Recent Infectious Disease Expo: No Recent Hopitalizations: No Immunizations Up To Date Tetanus Booster (TDap): Unknown Seasonal Allergies Seasonal Allergies: No Past Medical History Surgeries: Yes (HEART CATH) Coronary Stent, Orthopedic Respiratory: Yes Asthma Cardiac: Yes (HEART STENTS X2- 1 IN 2007, 1 IN 2014) Heart Attack, High Cholesterol, Hypertension Neurological: No Genitourinary: No Gastrointestinal: Yes Pancreatitis Musculoskeletal: No Endocrine: No HEENT: No Cancer: No Psychosocial: No Integumentary: No Blood Disorders: No Family Medical History Reviewed Nursing Family Hx Cardiovascular disease 19 FATHER 19 MOTHER FH: CHF (congestive heart failure) 19 FATHER FH: throat cancer 19 MOTHER Physical Exam Vital Signs Vital Signs - First Documented 02/27/19 11:07 Pulse 74 Resp 20 B/P (MAP) 152/89 (110) Pulse Ox 98 O2 Delivery Room Air Capillary Refill : Less Than 3 Seconds General Appearance: WD/WN, no apparent distress Cardiovascular: normal peripheral pulses, regular rate, rhythm, no edema, no gallop, no JVD, no murmur Respiratory: chest non-tender, lungs clear, normal breath sounds, no respiratory distress, no accessory muscle use Skin: normal color, warm/dry Skin Problem Location: upper extremities (left index finger laceration see hpi. ) Procedures/Interventions Wound Location: Upper Extremities Other Wound Location Right index finger Wound Length (cm): 1.5 Wound's Depth, Shape: superficial Wound Explored: clean Irrigated w/ Saline (ccs): 50 Other Closure Supply: Wound Adhesive Progress The wound was thoroughly cleaned and irrigated with normal saline. The wound edges were approximated and skin affix was applied. Patient tolerated procedure well. Progress/Results/Core Measures Results/Orders My Orders Orders - BERNOT,BENNIE Dipht,Pertuss(Acell),Tet Adult (Boostrix (02/27/19 11:30) Vital Signs/I&O 02/27/19 02/27/19 11:07 12:25 Pulse 74 74 Resp 20 20 B/P (MAP) 152/89 (110) 152/89 (110) Pulse Ox 98 98 O2 Delivery Room Air Blood Pressure Mean: 110 Departure Impression Primary Impression: Laceration Disposition: 01 HOME, SELF-CARE Condition: Stable/Unchanged Departure-Patient Inst. Decision time for Depature: 11:23 Referrals: NO,LOCAL PHYSICIAN (PCP/Family) Primary Care Physician Patient Instructions: Laceration Repair With Glue (DC) Add. Discharge Instructions: Watch for signs of infection such as increased redness, swelling, drainage, pain. Let the glue fall off on its own. Do not pick at the glue, do not use any lotions, soaps, ointments directly to the glue. Follow-up with your primary care provider within 1 week for recheck. Return back to the emergency room for worsening symptoms or concerns as needed. All discharge instructions reviewed with patient and/or family. Voiced understanding. BENNIE ROONEY Feb 27, 2019 11:25
[2019-02-27] MEDS ORDERED: TETANUS,DIPTH,PERTUSS P/F (BOOSTRIX) 0.5 ML VIAL IM ONE (11:30)
[2019-02-27 12:25] VITALS: BP 152/89
== END 2019-02-27 12:25 | disposition home or self-care (01) ==
LOC: EDUNIT# 10:37 → ER 10:37
DX: S61.210A Laceration without foreign body of right index finger without damage to nail, initial encounter (principal); J45.909 Unspecified asthma, uncomplicated; I25.2 Old myocardial infarction; E78.00 Pure hypercholesterolemia, unspecified; I10 Essential (primary) hypertension; Z82.49 Family history of ischemic heart disease and other diseases of the circulatory system; Z80.0 Family history of malignant neoplasm of digestive organs; Z87.19 Personal history of other diseases of the digestive system; Z88.6 Allergy status to analgesic agent; Z88.0 Allergy status to penicillin; Z88.8 Allergy status to other drugs, medicaments and biological substances; Z79.82 Long term (current) use of aspirin; Z77.22 Contact with and (suspected) exposure to environmental tobacco smoke (acute) (chronic); Z95.5 Presence of coronary angioplasty implant and graft; W26.0XXA Contact with knife, initial encounter
CPT/HCPCS: 90715

== ENCOUNTER 2019-10-10 17:38 | Emergency (ER) | payer SELFPAY ==
[~2019-10-10] VITALS: Ht 167.7 cm; Wt 98.6 kg
[2019-10-10 18:11] LABS: BILIRUBIN,URINE NEGATIVE (NEGATIVE); CLARITY,URINE CLEAR; COLOR,URINE YELLOW; GLUCOSE, URINE (UA) NEGATIVE (NEGATIVE); KETONES,URINE NEGATIVE (NEGATIVE); LEUKOCYTE ESTERASE ,URINE NEGATIVE (NEGATIVE); NITRITE,URINE NEGATIVE (NEGATIVE); PH,URINE 5.5 (5-9); PROTEIN,URINE NEGATIVE (NEGATIVE)
[2019-10-10] MEDS ORDERED: KETOROLAC 30 MG/ML VIAL IVP ONE (18:15)
[2019-10-10] MEDS ORDERED: ONDANSETRON 4 MG/2 ML (SDV) Z0FRAN IVP ONE (18:15)
[2019-10-10 18:21] LABS: AMORPHOUS SEDIMENT,UR FEW AMOR URATES /LPF; BACTERIA,URINE NEGATIVE /HPF
[2019-10-10 18:47] LABS: BASOPHILS % (AUTO) 0 % (0-10); EOSINOPHILS # (AUTO) 0.1 10^3/uL (0.0-0.3); EOSINOPHILS % (AUTO) 2 % (0-10); HEMATOCRIT 45 % (40-54); HEMOGLOBIN 15.5 G/DL (13.3-17.7); LYMPHOCYTES # (AUTO) 2.3 X 10^3 (1.0-4.0); LYMPHOCYTES % (AUTO) 26 % (12-44); MEAN CORPUSCULAR HEMOGLOBIN 30 PG (25-34); MEAN CORPUSCULAR HGB CONC 34 G/DL (32-36); MEAN CORPUSCULAR VOLUME 88 FL (80-99); MEAN PLATELET VOLUME 9.6 FL (7.4-10.4); MONOCYTES # (AUTO) 0.7 X 10^3 (0.0-1.0); MONOCYTES % (AUTO) 8 % (0-12); NEUTROPHILS # (AUTO) 5.7 X 10^3 (1.8-7.8); NEUTROPHILS % (AUTO) 64 % (42-75); PLATELET COUNT 345 10^3/uL (130-400); RED CELL DISTRIBUTION WIDTH 12.8 % (10.0-14.5); WHITE BLOOD COUNT 8.9 10^3/uL (4.3-11.0)
[2019-10-10] MEDS ORDERED: fentaNYL INJECTION 100 MCG/2 ML AMP IVP ONE (19:00)
[2019-10-10 19:01] LABS: ALANINE AMINOTRANSFERASE 54 U/L (0-55); ALBUMIN 4.5 GM/DL (3.2-4.5); ALKALINE PHOSPHATASE 76 U/L (40-136); BILIRUBIN,TOTAL 0.2 MG/DL (0.1-1.0); BUN/CREATININE RATIO 13; CALCIUM 9.6 MG/DL (8.5-10.1); CARBON DIOXIDE 23 MMOL/L (21-32); CHLORIDE 105 MMOL/L (98-107); CREATININE SERUM 1.09 MG/DL (0.60-1.30); GFR ESTIMATED > 60; GLUCOSE 114 MG/DL (70-105); LIPASE 105 U/L (8-78); POTASSIUM 3.9 MMOL/L (3.6-5.0); SODIUM 140 MMOL/L (135-145); TOTAL PROTEIN 7.9 GM/DL (6.4-8.2)
--- NOTE | 2019-10-10 19:01 | NUR ---
REPORT GIVEN TO HERNANDO SHAFER
--- NOTE | 2019-10-10 19:28 | Diagnostic Imaging Report ---
PROCEDURE: CT urinary tract, rule out kidney stone. TECHNIQUE: Multiple contiguous axial images were obtained through the abdomen and pelvis without the use of intravenous contrast. Auto Exposure Controls were utilized during the CT exam to meet ALARA standards for radiation dose reduction. INDICATION: Low back pain. FINDINGS: The lung bases demonstrate no focal infiltrate or evidence of consolidation. There is no effusion. The noncontrast appearance of the liver is unremarkable. Gallbladder nondistended without radiodense gallstones. There is no biliary dilatation. The pancreas appears unremarkable. The spleen is normal in size. There are several small splenules. There is no adrenal mass. The kidneys appear nonobstructed. There is no hydronephrosis. There is no focal renal stone but a subtle suggestion the possibility some early nephrocalcinosis. The small and large bowel are normal in caliber without evidence of obstruction. There is advanced sigmoid diverticulosis but no current findings of diverticulitis. There is moderate stool within the colon. The appendix is normal. There is no free air, free fluid or abscess. Urinary bladder unremarkable. There are fat-containing inguinal hernias. There are no pathologically enlarged lymph nodes. There are mild atherosclerotic calcifications within the aorta. There is no acute or suspicious osseous abnormality evident within the spine. There are mild multilevel degenerative endplate changes. There does appear to likely be moderate canal stenosis at the L4-L5 level. IMPRESSION: 1. No CT evidence of an acute inflammatory or obstructive process within the abdomen or pelvis. 2. There is no hydronephrosis or focal renal stone. There is a subtle suggestion that there may be some early developing nephrocalcinosis. 3. Sigmoid diverticulosis without diverticulitis or bowel obstruction. 4. No focal inflammation or free fluid. 5. No acute osseous abnormality. There is likely moderate canal stenosis at L4-L5. Dictated by: Dictated on workstation # [id number]
[2019-10-10] MEDS ORDERED: RX-HYDROCODONE/APAP 5/325 MG #4 TAB PK PO PRN (20:00)
[2019-10-10] MEDS ORDERED: predniSONE 20 MG TAB PO ONE (20:00)
--- NOTE | 2019-10-10 20:00 | ED Abdominal Pain ---
General Chief Complaint: Back Problems Stated Complaint: POSS KIDNEY STONE Nursing Triage Note: Pt amb to triage with c/o bilat flank discomfort for approx x1 month. Pt reports hematuria and dysuria on 10/06/19. Denies fever or chills. Reports hx kidney stones requiring surgical intervention. Sepsis Screen: No Definite Risk Source of Information: Patient Exam Limitations: No Limitations History of Present Illness Date Seen by Provider: Oct 10, 2019 Time Seen by Provider: 18:07 Initial Comments This 39-year-old man presents to the emergency room with primary complaint of bilateral lower back pain and some generalized abdominal discomfort. He has been experiencing this pain for about a month. This has become more intense in recent days. He reports having kidney stones within the past year and a half. He has required interventions for ureteral stones in the past including basket retrievals and lithotripsy. He describes the pain in his back as a deep aching or throbbing with intermittent sharp stabbing pain. 4 days ago he reports having rust colored urine and dysuria. He does not have a local urologist. He also reports increase in abdominal girth in recent months causing discomfort. He also has numerous soft bowel movements each day. He reports his symptoms today are similar to symptoms he has had with prior ureteral stones. His primary care provider is Dr. Lynne. He denies any lower extremity weakness or numbness, saddle paresthesia, or difficulty controlling bowels or bladder. Patient denied any drug, alcohol, or tobacco use. Allergies and Home Medications Allergies Coded Allergies: tramadol (Verified Allergy, Intermediate, 07/27/18) SEIZURES amoxicillin (Verified Allergy, Mild, RASH, 07/27/18) gabapentin (Verified Allergy, Mild, RASH, 07/27/18) erythromycin base (Verified Allergy, Unknown, 10/10/19) Home Medications Aspirin 81 Mg Tablet., 81 MG PO DAILY, (Reported) Atorvastatin Calcium 20 Mg Tablet, 20 MG PO HS Prescribed by: EMETERIO NICOLE on 07/28/18 1413 Lisinopril 5 Mg Tablet, 5 MG PO DAILY@0900 Prescribed by: EMETERIO NICOLE on 07/28/18 1413 Metoprolol Tartrate 50 Mg Tablet, 50 MG PO BID Prescribed by: EMETERIO NICOLE on 07/28/18 1413 Prednisone 20 Mg Tab, 20 MG PO DAILY Prescribed by: NITESH GARCÍA on 10/10/192003 Patient Home Medication List Home Medication List Reviewed: Yes Review of Systems Review of Systems Constitutional: no symptoms reported EENTM: No Symptoms Reported Respiratory: No Symptoms Reported Cardiovascular: No Symptoms Reported Gastrointestinal: See HPI Genitourinary: See HPI Musculoskeletal: see HPI Skin: no symptoms reported Psychiatric/Neurological: No Symptoms Reported Endocrine: No Symptoms Reported Hematologic/Lymphatic: No Symptoms Reported Past Tucpsxs-Jutyic-Ursssd Hx Past Med/Social Hx: Reviewed and Corrections made Patient Social History Alcohol Use: Rarely Uses Number of Drinks Today: 0 Recreational Drug Use: No Smoking Status: Never a Smoker 2nd Hand Smoke Exposure: Yes Recent Foreign Travel: No Contact w/Someone Who Travel: No Recent Infectious Disease Expo: No Recent Hopitalizations: No Immunizations Up To Date Tetanus Booster (TDap): Unknown Seasonal Allergies Seasonal Allergies: No Past Medical History Surgeries: Yes (HEART CATH, x2 STENTS) Coronary Stent, Orthopedic, Renal (Lithotripsy and basket retrieval) Respiratory: Yes Asthma Cardiac: Yes (HEART STENTS X2- 1 IN 2007, 1 IN 2014) Coronary Artery Disease, Heart Attack, High Cholesterol, Hypertension Neurological: Yes Headaches /Migraines Genitourinary: Yes Kidney Stones Gastrointestinal: Yes Pancreatitis Musculoskeletal: No Endocrine: No HEENT: No Cancer: No Psychosocial: No Integumentary: No Blood Disorders: No Family Medical History Reviewed Nursing Family Hx Cardiovascular disease 19 FATHER 19 MOTHER FH: CHF (congestive heart failure) 19 FATHER FH: throat cancer 19 MOTHER Physical Exam Vital Signs Vital Signs - First Documented 10/10/19 17:44 Temp 36.9 Pulse 77 Resp 16 B/P (MAP) 128/87 (101) Pulse Ox 99 O2 Delivery Room Air Capillary Refill : Less Than 3 Seconds Height/Weight/BMI Height: 5'6.00" Weight: 220lbs. 13.4oz. 99.245557rm; 35.00 BMI Method:Stated General Appearance: WD/WN, no apparent distress, obese HEENT: PERRL/EOMI, normal ENT inspection Neck: normal inspection Respiratory: lungs clear, normal breath sounds, no respiratory distress, no accessory muscle use Cardiovascular: regular rate, rhythm, no edema, no murmur Gastrointestinal: normal bowel sounds, soft, tenderness (Mild generalized tenderness. No focal tenderness), other (Obese abdomen) Extremities: normal inspection, no pedal edema Back: normal inspection, other (Generalized tenderness in the lumbar mus culature) Neurologic/Psychiatric: pathology laboratory aide II-XII nml as tested, no motor/sensory deficits, alert, normal mood/affect, oriented x 3 Skin: normal color, warm/dry Progress/Results/Core Measures Results/Orders Lab Results Laboratory Tests Test 10/10/19 18:00 Range/Units White Blood Count 8.9 4.3-11.0 10^3/uL Red Blood Count 5.12 4.35-5.85 10^6/uL Hemoglobin 15.5 13.3-17.7 G/DL Hematocrit 45 40-54 % Mean Corpuscular Volume 88 80-99 FL Mean Corpuscular Hemoglobin 30 25-34 PG Mean Corpuscular Hemoglobin Concent 34 32-36 G/DL Red Cell Distribution Width 12.8 10.0-14.5 % Platelet Count 345 130-400 10^3/uL Mean Platelet Volume 9.6 7.4-10.4 FL Neutrophils (%) (Auto) 64 42-75 % Lymphocytes (%) (Auto) 26 12-44 % Monocytes (%) (Auto) 8 0-12 % Eosinophils (%) (Auto) 2 0-10 % Basophils (%) (Auto) 0 0-10 % Neutrophils # (Auto) 5.7 1.8-7.8 X 10^3 Lymphocytes # (Auto) 2.3 1.0-4.0 X 10^3 Monocytes # (Auto) 0.7 0.0-1.0 X 10^3 Eosinophils # (Auto) 0.1 0.0-0.3 10^3/uL Basophils # (Auto) 0.0 0.0-0.1 10^3/uL Erythrocyte Sedimentation Rate 9 0-15 MM/HR Urine Color YELLOW Urine Clarity CLEAR Urine pH 5.5 5-9 Urine Specific [place] 1.025 H 1.016-1.022 Urine Protein NEGATIVE NEGATIVE Urine Glucose (UA) NEGATIVE NEGATIVE Urine Ketones NEGATIVE NEGATIVE Urine Nitrite NEGATIVE NEGATIVE Urine Bilirubin NEGATIVE NEGATIVE Urine Urobilinogen 0.2 < = 1.0 MG/DL Urine Leukocyte Esterase NEGATIVE NEGATIVE Urine RBC (Auto) NEGATIVE NEGATIVE Urine RBC NONE /HPF Urine WBC NONE /HPF Urine Crystals PRESENT H /LPF Urine Amorphous Sediment FEW VARGHESE URATES H /LPF Urine Bacteria NEGATIVE /HPF Urine Casts NONE /LPF Urine Mucus NEGATIVE /LPF Urine Culture Indicated NO Sodium Level 140 135-145 MMOL/L Potassium Level 3.9 3.6-5.0 MMOL/L Chloride Level 105 98-107 MMOL/L Carbon Dioxide Level 23 21-32 MMOL/L Anion Gap 12 5-14 MMOL/L Blood Urea Nitrogen 14 7-18 MG/DL Creatinine 1.09 0.60-1.30 MG/DL Estimat Glomerular Filtration Rate > 60 BUN/Creatinine Ratio 13 Glucose Level 114 H 70-105 MG/DL Calcium Level 9.6 8.5-10.1 MG/DL Corrected Calcium 9.2 8.5-10.1 MG/DL Total Bilirubin 0.2 0.1-1.0 MG/DL Aspartate Amino Transf (AST/SGOT) 30 5-34 U/L Alanine Aminotransferase (ALT/SGPT) 54 0-55 U/L Alkaline Phosphatase 76 40-136 U/L C-Reactive Protein High Sensitivity 0.40 0.00-0.50 MG/DL Total Protein 7.9 6.4-8.2 GM/DL Albumin 4.5 3.2-4.5 GM/DL Lipase 105 H 8-78 U/L My Orders Orders - NITESH PARIKH MD Ed Iv/Invasive Line Start (10/10/19 18:06) Ua Culture If Indicated (10/10/19 18:06) Ketorolac Injection (Toradol Injection) (10/10/19 18:15) Ondansetron Injection (Zofran Injectio (10/10/19 18:15) Cbc With Automated Diff (10/10/19 18:36) Comprehensive Metabolic Panel (10/10/19 18:36) Lipase (10/10/19 18:36) Ct Abd/Pelvis Wo(Kidney Stone) (10/10/19 18:36) Fentanyl Injection (Sublimaze Injection (10/10/19 19:00) Hs C Reactive Protein (10/10/19 19:22) Erythrocyte Sedimentation Rate (10/10/19 19:22) Rx-Hydrocodone/Apap 5-325 Mg (Rx-Vicodin (10/10/19 20:00) Prednisone Tablet (Deltasone Tablet) (10/10/19 20:00) Medications Given in ED Vital Signs/I&O 11/27/19 11/27/19 17:44 20:05 Temp 36.9 36.9 Pulse 77 84 Resp 16 18 B/P (MAP) 128/87 (101) 160/90 (101) Pulse Ox 99 98 O2 Delivery Room Air Room Air Blood Pressure Mean: 101 POS Progress Progress Note : Progress Note Initial workup was unremarkable. I discussed risks and benefits of CT imaging with the patient. Because he feels similar to prior ureteral stone episodes, he asked to proceed with the CT scan after discussion of risks and benefits. CT did not reveal any ureteral stones. It did reveal some lumbar spinal stenosis. We discussed the implications of this and return precautions. He was treated with Toradol and hydrocodone for pain. He also was offered prednisone which she accepted. A take-home pack of hydrocodone was dispensed as pharmacies are closed for the holidays. Patient stated he was advised not to take NSAID medications because of his heart disease. Patient was advised to pursue endoscopy for abdominal discomfort and frequent stools. Lipase was minimally elevated. He was instructed to observe a clear liquid diet for the next 24 hours and then a low-fat diet after that. Weight loss with negative caloric balance was recommended. Diagnostic Imaging Diagonstic Imaging: CT Plain Films/CT/US/NM/MRI: abdomen, pelvis Comments CT abdomen and pelvis viewed by me and report reviewed. See report below: NAME: ANNALISA OLIVIER MED REC#: [id number] PT STATUS: REG ER : 1980 PHYSICIAN: NITESH PARIKH MD ADMIT DATE: 10/10/19/ER Signed Date of Exam:10/10/19 CT ABD/PELVIS WO(KIDNEY STONE) PROCEDURE: CT urinary tract, rule out kidney stone. TECHNIQUE: Multiple contiguous axial images were obtained through the abdomen and pelvis without the use of intravenous contrast. Auto Exposure Controls were utilized during the CT exam to meet ALARA standards for radiation dose reduction. INDICATION: Low back pain. FINDINGS: The lung bases demonstrate no focal infiltrate or evidence of consolidation. There is no effusion. The noncontrast appearance of the liver is unremarkable. Gallbladder nondistended without radiodense gallstones. There is no biliary dilatation. The pancreas appears unremarkable. The spleen is normal in size. There are several small splenules. There is no adrenal mass. The kidneys appear nonobstructed. There is no hydronephrosis. There is no focal renal stone but a subtle suggestion the possibility some early nephrocalcinosis. The small and large bowel are normal in caliber without evidence of obstruction. There is advanced sigmoid diverticulosis but no current findings of diverticulitis. There is moderate stool within the colon. The appendix is normal. There is no free air, free fluid or abscess. Urinary bladder unremarkable. There are fat-containing inguinal hernias. There are no pathologically enlarged lymph nodes. There are mild atherosclerotic calcifications within the aorta. There is no acute or suspicious osseous abnormality evident within the spine. There are mild multilevel degenerative endplate changes. There does appear to likely be moderate canal stenosis at the L4-L5 level. IMPRESSION: 1. No CT evidence of an acute inflammatory or obstructive process within the abdomen or pelvis. 2. There is no hydronephrosis or focal renal stone. There is a subtle suggestion that there may be some early developing nephrocalcinosis. 3. Sigmoid diverticulosis without diverticulitis or bowel obstruction. 4. No focal inflammation or free fluid. 5. No acute osseous abnormality. There is likely moderate canal stenosis at L4-L5. Dictated by: Dictated on workstation # [id number] Dict: 10/10/191919 Trans: 10/10/191942 [id number] Interpreted by: ADAN PRADHAN MD Electronically signed by: ADAN PRADHAN MD 10/10/191942 Departure Impression Primary Impression: Spinal stenosis, lumbar Qualified Codes: M48.061 - Spinal stenosis, lumbar region without neurogenic claudication Additional Impressions: Lower back pain Qualified Codes: M54.5 - Low back pain Abdominal pain, generalized Frequent stools Inguinal hernia Qualified Codes: K40.20 - Bilateral inguinal hernia, without obstruction or gangrene, not specified as recurrent Elevated lipase Disposition: 01 HOME, SELF-CARE Condition: Improved Departure-Patient Inst. Decision time for Depature: 19:58 Referrals: JO LYNNE MD (PCP) Primary Care Physician NO,LOCAL PHYSICIAN (Family) Primary Care Physician Patient Instructions: Spinal Stenosis Add. Discharge Instructions: 1. Please contact your primary care provider on Tuesday and follow-up as soon as possible. Discussed further workup of your abdominal pain which might include endoscopy (colonoscopy and EGD). 2. Consume a clear liquid diet for the next 24 hours. Then gradually advance her diet with small quantities of bland food as tolerated. Avoid fatty or greasy foods 3. For mild pain take Tylenol (acetaminophen) up to 1000 mg every 6 hours as needed. For more severe pain you may take the hydrocodone provided. 4. Drink plenty of clear liquids to stay well-hydrated. 5. To lose weight concentrate on a negative caloric balance. This requires decreased caloric intake and increased physical activity. 6. Discuss your spinal stenosis with your primary care provider. Weight loss should help reduce strain on your back resulting in decreased back pain. Gentle heat may also help relax your back. Return to the emergency room if you have worsening symptoms that include weakness in your legs, loss of feeling in your legs, difficulty controlling bowels or bladder, inability to urinate or severe constipation, or numbness in your groin region. All discharge instructions reviewed with patient and/or family. Voiced understanding. Scripts Prednisone (Prednisone) 20 Mg Tab 20 MG PO DAILY, #4 TAB 0 Refills Prov: NITESH PARIKH MD 10/10/19 Copy Copies To 1: JO LYNNE MD, JOSHUA T MD Oct 10, 2019 19:59 POS
[2019-10-10] MEDS ORDERED: PRD20T PO (20:04)
[2019-10-10 20:05] VITALS: BP 160/90
== END 2019-10-10 20:40 | disposition home or self-care (01) ==
LOC: EDUNIT# 17:38 → ER 17:40
DX: M48.061 Spinal stenosis, lumbar region without neurogenic claudication (principal); K40.90 Unilateral inguinal hernia, without obstruction or gangrene, not specified as recurrent; R19.4 Change in bowel habit; R10.84 Generalized abdominal pain; J45.909 Unspecified asthma, uncomplicated; I10 Essential (primary) hypertension; E78.00 Pure hypercholesterolemia, unspecified; G43.909 Migraine, unspecified, not intractable, without status migrainosus; I25.2 Old myocardial infarction; I25.10 Atherosclerotic heart disease of native coronary artery without angina pectoris; Z88.0 Allergy status to penicillin; Z88.1 Allergy status to other antibiotic agents; Z88.5 Allergy status to narcotic agent; Z88.8 Allergy status to other drugs, medicaments and biological substances; Z79.82 Long term (current) use of aspirin; Z95.5 Presence of coronary angioplasty implant and graft; Z82.49 Family history of ischemic heart disease and other diseases of the circulatory system
CPT/HCPCS: 36415; 74176; 80053; 81000; 83690; 85025; 85652; 86141

== ENCOUNTER 2019-10-13 18:10 | Emergency (ER) | payer OTHER ==
[~2019-10-13] VITALS: Ht 180 cm; Wt 100.0 kg
[~2019-10-13 18:10] MED LIST changes: +PRD20T PO
[2019-10-13] MEDS ORDERED: oxyCODONE/APAP 5/325MG (PERCOCET 5) TABLET PO ONE (19:00)
[2019-10-13] MEDS ORDERED: KETOROLAC 60 MG/2 ML VIAL IM ONE (19:00)
[2019-10-13] MEDS ORDERED: ORPHENADRINE 60 MG/2 ML (NORFLEX) AMP IM ONE (19:00)
--- NOTE | 2019-10-13 19:05 | ED Back Pain ---
General Chief Complaint: Back Problems Stated Complaint: BACK PAIN Nursing Triage Note: THE PT ARRIVAL BY EMS. NO DISTRESS IS SEEN ON ARRIVAL. LOC IS NORMAL FOR THE PT. THE PT IS C/O BACK PAIN. Nursing Sepsis Screen: No Definite Risk Source of Information: Patient Exam Limitations: No Limitations History of Present Illness Date Seen by Provider: Oct 13, 2019 Time Seen by Provider: 19:02 Initial Comments To ER with reports of mid low back pain. No fever no chills no trauma. Was seen here recently for abdominal pain, found it gently on CT to have some lumbar stenosis. He states his pain is better when he leans forward, does not radiate down either of his legs. No loss of sensation of his genitals. He did have one episode of urinary incontinence during the night last night but has not had any incontinence of urine or bowel today. Location: Lumbar Spine Timing/Duration: 2-3 Days Severity: Moderate Pain/Injury Location: Back Method of Injury: Unknown Associated Symptoms: denies symptoms Allergies and Home Medications Allergies Coded Allergies: tramadol (Verified Allergy, Intermediate, 07/27/18) SEIZURES amoxicillin (Verified Allergy, Mild, RASH, 07/27/18) gabapentin (Verified Allergy, Mild, RASH, 07/27/18) erythromycin base (Verified Allergy, Unknown, 10/10/19) Home Medications Aspirin 81 Mg Tablet.dr, 81 MG PO DAILY, (Reported) Atorvastatin Calcium 20 Mg Tablet, 20 MG PO HS Prescribed by: EMETERIO NICOLE on 07/28/18 1413 Lisinopril 5 Mg Tablet, 5 MG PO DAILY@0900 Prescribed by: EMETERIO NICOLE on 07/28/18 1413 Metoprolol Tartrate 50 Mg Tablet, 50 MG PO BID Prescribed by: EMETERIO NICOLE on 07/28/18 1413 Prednisone 20 Mg Tab, 20 MG PO DAILY Prescribed by: NITESH GARCÍA on 10/10/192003 Patient Home Medication List Home Medication List Reviewed: Yes Review of Systems Constitutional: see HPI EENTM: see HPI Respiratory: no symptoms reported Cardiovascular: no symptoms reported Genitourinary: no symptoms reported Musculoskeletal: no symptoms reported Skin: no symptoms reported Psychiatric/Neurological: No Symptoms Reported Past Dhhhxli-Veqmut-Fnunia Hx Patient Social History 2nd Hand Smoke Exposure: Yes Recent Foreign Travel: No Contact w/Someone Who Travel: No Recent Infectious Disease Expo: No Recent Hopitalizations: No Physical Abuse: No Sexual Abuse: No Mistreated: No Fear: No Immunizations Up To Date Tetanus Booster (TDap): Unknown Seasonal Allergies Seasonal Allergies: No Past Medical History Surgeries: No Coronary Stent, Orthopedic, Renal Respiratory: Yes Asthma Cardiac: Yes (HEART STENTS X2- 1 IN 2007, 1 IN 2014) Coronary Artery Disease, Heart Attack, High Cholesterol, Hypertension Neurological: Yes Headaches /Migraines Genitourinary: Yes Kidney Stones Gastrointestinal: Yes Pancreatitis Musculoskeletal: No Endocrine: No HEENT: No Cancer: No Psychosocial: No Integumentary: No Blood Disorders: No Family Medical History Cardiovascular disease 19 FATHER 19 MOTHER FH: CHF (congestive heart failure) 19 FATHER FH: throat cancer 19 MOTHER Physical Exam Vital Signs Vital Signs - First Documented 10/13/19 18:48 Temp 36.4 Pulse 74 Resp 16 B/P (MAP) 137/87 (104) Capillary Refill : Less Than 3 Seconds Height, Weight, BMI Height: 5'6.00" Weight: 220lbs. 13.4oz. 99.483623hy; 30.00 BMI Method:Stated General Appearance: No Apparent Distress, WD/WN HEENT: Normal ENT Inspection, Pharynx Normal Respiratory: No Accessory Muscle Use, No Respiratory Distress Gastrointestinal: Normal Bowel Sounds, Non Tender, Soft Neurologic/Psychiatric: Alert, Oriented x3, No Motor/Sensory Deficits Skin: Normal Color, Warm/Dry Progress/Results/Core Measures Results/Orders My Orders Orders - KAYLA TO APRN Ketorolac Injection (Toradol Injection) (10/13/19 19:00) Orphenadrine Injection (Norflex Injectio (10/13/19 19:00) Oxycodone/Apap 5/325mg Tablet (Percocet (10/13/19 19:00) Bladder Scan (10/13/19 19:02) Medications Given in ED Current Medications Medications Dose Ordered Sig/Faisal Route Start Time Stop Time Status Last Admin Dose Admin Ketorolac Tromethamine 60 mg ONCE ONCE IM 10/13/19 19:00 10/13/19 19:01 DC 10/13/19 19:18 60 MG Orphenadrine Citrate 60 mg ONCE ONCE IM 10/13/19 19:00 10/13/19 19:01 DC 10/13/19 19:16 60 MG Oxycodone/ Acetaminophen 1 tab ONCE ONCE PO 10/13/19 19:00 10/13/19 19:02 DC 10/13/19 19:15 1 TAB Vital Signs/I&O 10/13/19 18:48 Temp 36.4 Pulse 74 Resp 16 B/P (MAP) 137/87 (104) Blood Pressure Mean: 104 POS Departure Communication (Admissions) Postvoid residual bladder scan shows empty bladder Impression Primary Impression: Lumbar stenosis Qualified Codes: M48.061 - Spinal stenosis, lumbar region without neurogenic claudication Disposition: HOME, SELF-CARE Condition: Stable Departure-Patient Inst. Decision time for Depature: 19:24 Referrals: GALI BRAVO JOSEPH M DO HUERTER, DAVID F MD (PCP/Family) Primary Care Physician JACKELINE AGUIRRE MD Patient Instructions: Spinal Stenosis (DC) Add. Discharge Instructions: 1. Return to ER for any concerns 2. Follow-up with your doctor next week 3. All discharge instructions reviewed with patient and/or family. Voiced understanding. Scripts Methocarbamol (Robaxin-750) 750 Mg Tablet 750 MG PO Q4H PRN for PAIN-MODERATE (5-7), #20 TAB Prov: KAYLA TO APRN 10/13/19 KAYLA TO APRN Oct 13, 2019 19:05 POS
[2019-10-13] MEDS ORDERED: METH-313 PO (19:26)
[2019-10-13 19:30] VITALS: BP 137/87
--- OUTSIDE RECORDS SUMMARY | 2019-11-08 01:15 | XMS REPORT | Continuity of Care Document ---
Author Organization Unknown Address Unknown Phone Unavailable Allergies Active Description Code Type Severity Reaction Onset Reported/Identified Relationship to Patient Clinical Status Yes tramadol [id number] Drug Allergy Moderate N/A 07/27/2018 Yes amoxicillin [id number] Drug Aller gy Mild RASH 07/27/2018 Yes gabapentin [id number] Drug Allerg y Mild RASH 07/27/2018 Yes No Known Drug Allergies [id number] Drug Allergy Unknown N/A 07/27/2018 Yes erythromycin base [id number] Drug Allergy Unknown N/A 10/10/2019 Medications There is no data. 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 07/28/2018 JESSIAK CORDOBA DOI Ot I25.2 OLD MYOCARDIAL INFARCTION 07/28/2018 MARIELENA CORDOBA DO Ot K85.90 ACUTE PANCREATITIS WITHOUT NECROSIS OR I 07/28/2018 MARIELENA CORDOBA DO Ot Z79.82 [employer] (CURRENT) USE OF ASPIRIN 07/28/2018 MARIELENA CORDOBA DO Ot Z79.89 9 OTHER [facility] (CURRENT) DRUG THERAPY 07/28/2018 MARIELENA CORDOBA DO Ot Z95.5 PRESENCE OF CORONARY ANGIOPLASTY IMPLANT 08/01/2018 MARIELENA CORDOBA DO Ot E78.00 PURE HYPERCHOLESTEROLEMIA, UNSPECIFIED 08/01/2018 MARIELENA CORDOBA DO Ot F41.9 ANXIETY DISORDER, UNSPECIFIED 08/01/2018 MARIELENA CORDOBA DO Ot I08.0 RHEUMATIC DISORDERS OF BOTH [place] AND A 08/01/2018 JESSIKA CORDOBA DOI Ot I10 ESSENTIAL (PRIMARY) HYPERTENSION 08/01/2018 MARIELENA CORDOBA DO Ot 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 08/01/2018 MARIELENA CORDOBA DO Ot I25.2 OLD MYOCARDIAL INFARCTION 08/01/2018 MARIELENA CORDOBA DO Ot K85.90 ACUTE PANCREATITIS WITHOUT NECROSIS OR I 08/01/2018 MARIELENA CORDOBA DO Ot Z79.82 [facility] (CURRENT) USE OF ASPIRIN 08/01/2018 MARIELENA CORDOBA DO Ot Z79.89 9 OTHER [facility] (CURRENT) DRUG THERAPY 08/01/2018 MARIELENA CORDOBA DO Ot Z95.5 PRESENCE OF CORONARY ANGIOPLASTY IMPLANT 08/02/2018 JESSE CASTILLOP Ot E78.00 PURE HYPERCHOLESTEROLEMIA, UNSPECIFIED 08/02/2018 JESSE CASTILLOP Ot G89.18 OTHER ACUTE POSTPROCEDURAL PAIN 08/02/2018 JESSE CASTILLOP Ot I10 ESSENTIAL (PRIMARY) HYPERTENSION 08/02/2018 JESSE CASTILLO Ot J45.909 UNSPECIFIED ASTHMA, UNCOMPLICATED 08/02/2018 JESSE CASTILLOP Ot M79.631 PAIN IN RIGHT FOREARM 08/02/2018 JESSE CASTILLOP Ot Z77.22 CNTCT W AND EXPSR TO ENVIRON TOBACCO SMO 08/02/2018 JESSE CASTILLOP Ot Z79.82 [employer] (CURRENT) USE OF ASPIRIN 08/02/2018 JESSE CASTILLO GEODUCK DIVER Ot Z80.0 FAMILY HISTORY OF MALIGNANT NEOPLASM OF 08/02/2018 JESSE CASTILLOP Ot Z82.49 FAMILY HX OF ISCHEM HEART DIS AND OTH DI 08/02/2018 JESSE CASTILLOP Ot Z87.19 PERSONAL HISTORY OF OTHER DISEASES OF 08/02/2018 JESSE CASTILLOP Ot Z88.0 ALLERGY STATUS TO PENICILLIN 08/02/2018 JESSE CASTILLO GEODU[employer] DIVER Ot Z88.6 ALLERGY STATUS TO ANALGESIC AGENT STATUS 08/02/2018 JESSE CASTILLOP Ot Z88.8 ALLERGY STATUS TO OTH DRUG/MEDS/BIOL SUB 08/02/2018 JESSE CASTILLOP Ot Z95.5 PRESENCE OF CORONARY ANGIOPLASTY IMPLANT 08/02/2018 JESSE CASTILLOP Ot Z98.890 OTHER SPECIFIED POSTPROCEDURAL STATES 08/04/2018 JESSE CASTILLOP Ot E78.00 PURE HYPERCHOLESTEROLEMIA, UNSPECIFIED 08/04/2018 JESSE CASTILLO GEODUCK DIVER Ot G89.18 OTHER ACUTE POSTPROCEDURAL PAIN 08/04/2018 JONATHAN JESSE GEODUCK DIVER Ot I10 ESSENTIAL (PRIMARY) HYPERTENSION 08/04/2018 JESSE CASTILLO GEODUCK DIVER Ot J45.909 UNSPECIFIED ASTHMA, UNCOMPLICATED 08/04/2018 JESSE CASTILLO GEODUCK DIVER Ot M79.631 PAIN IN RIGHT FOREARM 08/04/2018 JONATHAN JESSE PORRASP Ot Z77.22 CNTCT W AND EXPSR TO ENVIRON TOBACCO SMO 08/04/2018 JONATHAN JESSE GEODUCK DIVER Ot Z79.82 [facility] (CURRENT) USE OF ASPIRIN 08/04/2018 JESSE CASTILLO GEODUCK DIVER Ot Z80.0 FAMILY HISTORY OF MALIGNANT NEOPLASM OF 08/04/2018 JESSE CASTILLOP Ot Z82.49 FAMILY HX OF ISCHEM HEART DIS AND OTH DI 08/04/2018 JONATHAN JESSE GEODUCK DIVER Ot Z87.19 PERSONAL HISTORY OF OTHER DISEASES OF TH 08/04/2018 JESSE CASTILLO GEODUCK DIVER Ot Z88.0 ALLERGY STATUS TO PENICILLIN 08/04/2018 JONATHAN JESSE GEODUCK DIVER Ot Z88.6 ALLERGY STATUS TO ANALGESIC AGENT STATUS 08/04/2018 JONATHANJESSE GEODUCK DIVER Ot Z88.8 ALLERGY STATUS TO OT DRUG/MEDS/BIOL SUB 08/04/2018 JONATHAN JESSE GEODUCK DIVER Ot Z95.5 PRESENCE OF CORONARY ANGIOPLASTY IMPLANT 08/04/2018 JONATHAN JESSE GEODUCK DIVER Ot Z98.890 OTHER SPECIFIED POSTPROCEDURAL STATES 02/27/2019 BENNIE ROONEY Ot E78.00 PURE HYPERCHOLESTEROLEMIA, UNSPECIFIED 02/27/2019 BENNIE ROONEY Ot I10 ESSENTIAL (PRIMARY) HYPERTENSION 02/27/2019 BENNIE ROONEY Ot I25.2 OLD MYOCARDIAL INFARCTION 02/27/2019 BENNIE ROONEY Ot J45.909 UNSPECIFIED ASTHMA, UNCOMPLICATED 02/27/2019 BENNIE ROONEY Ot S61.210A LACERATION W/O FB OF R IDX FNGR W/O SOSA 02/27/2019 BENNIE ROONEY Ot W26.0XXA CONTACT WITH KNIFE, INITIAL ENCOUNTER 02/27/2019 BENNIE ROONEY Ot Z77.22 CNTCT W AND EXPSR TO ENVIRON TOBACCO SMO 02/27/2019 BENNIE ROONEY Ot Z79.82 [employer] (CURRENT) USE OF ASPIRIN 02/27/2019 BENNIE ROONEY Ot Z80.0 FAMILY HISTORY OF MALIGNANT NEOPLASM OF 02/27/2019 BENNIE ROONEY Ot Z82.49 FAMILY HX OF ISCHEM HEART DIS AND OTH DI 02/27/2019 BENNIE ROONEY Ot Z87.19 PERSONAL HISTORY OF OTHER DISEASES OF TH 02/27/2019 BENNIE ROONEY Ot Z88.0 ALLERGY STATUS TO PENICILLIN 02/27/2019 JAVED ROONEYIS Ot Z88.6 ALLERGY STATUS TO ANALGESIC AGENT STATUS 02/27/2019 JAVED ROONEYIS Ot Z88.8 ALLERGY STATUS TO OTH DRUG/MEDS/BIOL SUB 02/27/2019 JAVED ROONEYIS Ot Z95.5 PRESENCE OF CORONARY ANGIOPLASTY IMPLANT 03/01/2019 BENNIE ROONEY Ot E78.00 PURE HYPERCHOLESTEROLEMIA, UNSPECIFIED 03/01/2019 BENNIE ROONEY Ot I10 ESSENTIAL (PRIMARY) HYPERTENSION 03/01/2019 BENNIE ROONEY Ot I25.2 OLD MYOCARDIAL INFARCTION 03/01/2019 BENNIE ROONEY Ot J45.909 UNSPECIFIED ASTHMA, UNCOMPLICATED 03/01/2019 BENNIE ROONEY Ot S61.210A LACERATION W/O FB OF R IDX FNGR W/O SOSA 03/01/2019 BENNIE ROONEY Ot W26.0XXA CONTACT WITH KNIFE, INITIAL ENCOUNTER 03/01/2019 BENNIE ROONEY Ot Z77.22 CNTCT W AND EXPSR TO ENVIRON TOBACCO SMO 03/01/2019 BENNIE ROONEY Ot Z79.82 [facility] (CURRENT) USE OF ASPIRIN 03/01/2019 BENNIE ROONEY Ot Z80.0 FAMILY HISTORY OF MALIGNANT NEOPLASM OF 03/01/2019 BENNIE ROONEY Ot Z82.49 FAMILY HX OF ISCHEM HEART DIS AND OTH DI 03/01/2019 BENNIE ROONEY Ot Z87.19 PERSONAL HISTORY OF OTHER DISEASES OF TH 03/01/2019 BENNIE ROONEY Ot Z88.0 ALLERGY STATUS TO PENICILLIN 03/01/2019 JAVED ROONEYIS Ot Z88.6 ALLERGY STATUS TO ANALGESIC AGENT STATUS 03/01/2019 JAVED ROONEYIS Ot Z88.8 ALLERGY STATUS TO OTH DRUG/MEDS/BIOL SUB 03/01/2019 JAVED ROONEYIS Ot Z95.5 PRESENCE OF CORONARY ANGIOPLASTY IMPLANT 10/10/2019 NITESH PARIKH MD Ot E78.00 PURE HYPERCHOLESTEROLEMIA, UNSPECIFIED 10/10/2019 NITESH PARIKH MD Ot G43.909 MIGRAINE, UNSP, NOT INTRACTABLE, WITHOUT 10/10/2019 NITESH PARIKH MD Ot I10 ESSENTIAL (PRIMARY) HYPERTENSION 10/10/2019 NITESH PARIKH MD Ot I25.10 ATHSCL HEART DISEASE OF [place] CORONARY 10/10/2019 NITESH PARIKH MD, Ot I25.2 OLD MYOCARDIAL INFARCTION 10/10/2019 NITESH PARIKH MD Ot J45.909 UNSPECIFIED ASTHMA, UNCOMPLICATED 10/10/2019 NITESH PARIKH MD Ot K40.90 UNIL INGUINAL HERNIA, W/O OBST OR GANGR, 10/10/2019 NITESH PARIKH MD Ot M48.061 SPINAL STENOSIS, LUMBAR REGION WITHOUT N 10/10/2019 NITESH PARIKH MD Ot M54.5 LOW BACK PAIN 10/10/2019 NITESH PARIKH MD Ot R10.84 GENERALIZED ABDOMINAL PAIN 10/10/2019 NITESH PARIKH MD Ot R19.4 CHANGE IN BOWEL HABIT 10/10/2019 NITESH PARIKH MD, Ot Z79.82 [facility] (CURRENT) USE OF ASPIRIN 10/10/2019 NITESH PARIKH MD Ot Z82.49 FAMILY HX OF ISCHEM HEART DIS AND OTH DI 10/10/2019 NITESH PARIKH MD Ot Z88.0 ALLERGY STATUS TO PENICILLIN 10/10/2019 NITESH PARIKH MD Ot Z88.1 ALLERGY STATUS TO OTHER ANTIBIOTIC AGENT 10/10/2019 NITESH PARIKH MD, Ot Z88.5 ALLERGY STATUS TO NARCOTIC AGENT STATUS 10/10/2019 NITESH PARIKH MD Ot Z88.8 ALLERGY STATUS TO OTH DRUG/MEDS/BIOL SUB 10/10/2019 NITESH PARIKH MD Ot Z95.5 PRESENCE OF CORONARY ANGIOPLASTY IMPLANT 10/12/2019 NITESH PARIKH MD Ot E78.00 PURE HYPERCHOLESTEROLEMIA, UNSPECIFIED 10/12/2019 NITESH PARIKH MD Ot G43.909 MIGRAINE, UNSP, NOT INTRACTABLE, WITHOUT 10/12/2019 NITESH PARIKH MD Ot I10 ESSENTIAL (PRIMARY) HYPERTENSION 10/12/2019 NITESH PARIKH MD Ot I25.10 ATHSCL HEART DISEASE OF [place] CORONARY 10/12/2019 NITESH PARIKH MD, Ot I25.2 OLD MYOCARDIAL INFARCTION 10/12/2019 NITESH PARIKH MD, Ot J45.909 UNSPECIFIED ASTHMA, UNCOMPLICATED 10/12/2019 NITESH PARIKH MD Ot K40.90 UNIL INGUINAL HERNIA, W/O OBST OR GANGR, 10/12/2019 NITESH PARIKH MD Ot M48.061 SPINAL STENOSIS, LUMBAR REGION WITHOUT N 10/12/2019 NITESH PARIKH MD Ot M54.5 LOW BACK PAIN 10/12/2019 NITESH PARIKH MD Ot R10.84 GENERALIZED ABDOMINAL PAIN 10/12/2019 NITESH PARIKH MD Ot R19.4 CHANGE IN BOWEL HABIT 10/12/2019 NITESH PARIKH MD Ot Z79.82 [employer] (CURRENT) USE OF ASPIRIN 10/12/2019 NITESH PARIKH MD, Ot Z82.49 FAMILY HX OF ISCHEM HEART DIS AND OTH DI 10/12/2019 NITESH PARIKH MD Ot Z88.0 ALLERGY STATUS TO PENICILLIN 10/12/2019 NITESH PARIKH MD Ot Z88.1 ALLERGY STATUS TO OTHER ANTIBIOTIC AGENT 10/12/2019 NITESH PARIKH MD Ot Z88.5 ALLERGY STATUS TO NARCOTIC AGENT STATUS 10/12/2019 NITESH PARIKH MD Ot Z88.8 ALLERGY STATUS TO OT DRUG/MEDS/BIOL SUB 10/12/2019 NITESH PARIKH MD Ot Z95.5 PRESENCE OF CORONARY ANGIOPLASTY IMPLANT 10/13/2019 KAYLA TO APRN Ot E78.00 PURE HYPERCHOLESTEROLEMIA, UNSPECIFIED 10/13/2019 KAYLA TO APRN Ot G43.909 MIGRAINE, UNSP, NOT INTRACTABLE, WITHOUT 10/13/2019 KAYLA TO APRN Ot I10 ESSENTIAL (PRIMARY) HYPERTENSION 10/13/2019 KAYLA TO APRN Ot I25.10 ATHSCL HEART DISEASE OF [place] CORONARY 10/13/2019 KAYLA TO APRN Ot I25 .2 OLD MYOCARDIAL INFARCTION 10/13/2019 KAYLA TO APRN Ot J45.909 UNSPECIFIED ASTHMA, UNCOMPLICATED 10/13/2019 KAYLA TO APRN Ot M48.061 SPINAL STENOSIS, LUMBAR REGION WITHOUT N 10/13/2019 KAYLA TO APRN Ot M54 .9 DORSALGIA, UNSPECIFIED 10/13/2019 KAYLA TO APRN Ot Z77.22 CNTCT W AND EXPSR TO ENVIRON TOBACCO SMO 10/13/2019 KAYLA TO APRN Ot Z79.82 [facility] (CURRENT) USE OF ASPIRIN 10/13/2019 KAYLA TO APRN Ot Z80 .8 FAMILY HISTORY OF MALIGNANT NEOPLASM OF 10/13/2019 KAYLA TO APRN Ot Z82.49 FAMILY HX OF ISCHEM HEART DIS AND OTH DI 10/13/2019 KAYLA TO APRN Ot Z87.442 PERSONAL HISTORY OF URINARY CALCULI 10/13/2019 KAYLA TO APRN Ot Z88 .0 ALLERGY STATUS TO PENICILLIN 10/13/2019 KAYLA TO APRN Ot Z88 .1 ALLERGY STATUS TO OTHER ANTIBIOTIC AGENT 10/13/2019 KAYLA TO APRN Ot Z88 .5 ALLERGY STATUS TO NARCOTIC AGENT STATUS 10/13/2019 KAYLA TO APRN Ot Z88 .8 ALLERGY STATUS TO OT DRUG/MEDS/BIOL SUB 10/13/2019 KAYLA TO APRN Ot Z95 .5 PRESENCE OF CORONARY ANGIOPLASTY IMPLANT 10/17/2019 JL RUCKER, NITESH Gee Ot E78.00 PURE HYPERCHOLESTEROLEMIA, UNSPECIFIED 10/17/2019 JL RUCKER, NITESH eGe Ot G43.909 MIGRAINE, UNSP, NOT INTRACTABLE, WITHOUT 10/17/2019 JL RUCKER, NITESH Gee Ot I10 ESSENTIAL (PRIMARY) HYPERTENSION 10/17/2019 JL RUCKER, NITESH Gee Ot I25.10 ATHSCL HEART DISEASE OF [place] CORONARY 10/17/2019 NITESH PARIKH MD, Ot I25.2 OLD MYOCARDIAL INFARCTION 10/17/2019 NITESH PARIKH MD Ot J45.909 UNSPECIFIED ASTHMA, UNCOMPLICATED 10/17/2019 NITESH PARIKH MD Ot K40.90 UNIL INGUINAL HERNIA, W/O OBST OR GANGR, 10/17/2019 NTIESH PARIKH MD, Ot M48.061 SPINAL STENOSIS, LUMBAR REGION WITHOUT N 10/17/2019 NITESH PARIKH MD Ot M54.5 LOW BACK PAIN 10/17/2019 NITESH PARIKH MD, Ot R10.84 GENERALIZED ABDOMINAL PAIN 10/17/2019 NITESH PARIKH MD, Ot R19.4 CHANGE IN BOWEL HABIT 10/17/2019 NITESH PARIKH MD, Ot Z79.82 [facility] (CURRENT) USE OF ASPIRIN 10/17/2019 NITESH PARIKH MD, Ot Z82.49 FAMILY HX OF ISCHEM HEART DIS AND OTH DI 10/17/2019 NITESH PARIKH MD Ot Z88.0 ALLERGY STATUS TO PENICILLIN 10/17/2019 NITESH PARIKH MD, Ot Z88.1 ALLERGY STATUS TO OTHER ANTIBIOTIC AGENT 10/17/2019 NITESH PARIKH MD Ot Z88.5 ALLERGY STATUS TO NARCOTIC AGENT STATUS 10/17/2019 NITESH PARIKH MD Ot Z88.8 ALLERGY STATUS TO OTH DRUG/MEDS/BIOL SUB 10/17/2019 NITESH PARIKH MD Ot Z95.5 PRESENCE OF CORONARY ANGIOPLASTY IMPLANT 10/24/2019 JO IYER Ot M47.816 SPONDYLOSIS W/O MYELOPATHY OR RADICULOPA 10/24/2019 JO IYER Ot M48.061 SPINAL STENOSIS, LUMBAR REGION WITHOUT N 10/24/2019 JO IYER Ot M51.36 OTHER INTERVERTEBRAL DISC DEGENERATION, 10/24/2019 JO IYER Ot M47.816 SPONDYLOSIS W/O MYELOPATHY OR RADICULOPA 10/24/2019 JO IYER Ot M48.061 SPINAL STENOSIS, LUMBAR REGION WITHOUT N 10/24/2019 RAYSHAWN MOODY JO Mccall Ot M51.36 OTHER INTERVERTEBRAL DISC DEGENERATION, 10/31/2019 RAYSHAWN MOODY JO Mccall Ot M47.816 SPONDYLOSIS W/O MYELOPATHY OR RADICULOPA 10/31/2019 RAYSHAWN MOODY JO Mccall Ot M48.061 SPINAL STENOSIS, LUMBAR REGION WITHOUT N 10/31/2019 RAYSHAWN MOODY JO Mccall Ot M51.36 OTHER INTERVERTEBRAL DISC DEGENERATION, 10/31/2019 RAYSHAWN MOODY JO Mccall Ot M47.816 SPONDYLOSIS W/O MYELOPATHY OR RADICULOPA 10/31/2019 RAYSHAWN MOODY JO Mccall Ot M48.061 SPINAL STENOSIS, LUMBAR REGION WITHOUT N 10/31/2019 RAYSHAWN MOODY JO Mccall Ot M51.36 OTHER INTERVERTEBRAL DISC DEGENERATION, Procedures There is no data. Results Test Result Range Complete blood count (CBC) with automate d white blood cell (WBC) differential - 07/27/18 13:40 Blood leukocytes automated count (number/volume) 7.3 10*3/uL 4.3-11.0 Blood erythrocytes automated count (number/volume) 4.85 10*6/uL 4.35-5.85 Venous blood hemoglobin measurement (mass/volume) 15.0 g/dL 13.3-17.7 Blood hematocrit (volume fraction) 43 % 40-54 Automated erythrocyte mean corpuscular volume 88 [ foz_us] 80-99 Automated erythrocyte mean corpuscular h emoglobin (mass per erythrocyte) 31 pg 25-34 Automated erythrocyte mean corpuscular h emoglobin concentration measurement (mass/volume) 35 g/dL 32-36 Automated erythrocyte distribution width ratio 12. 3 % 10.0- 14.5 Automated blood platelet count (count/volume) 318 10*3/uL 130-400 Automated blood platelet mean volume measurement 9.5 [foz_us] 7.4-10.4 Automated blood neutrophils/100 leukocytes 59 % 42-75 Automated blood lymphocytes/100 leukocytes 29 % 12-44 Blood monocytes/100 leukocytes 9 % 0-12 Automated blood eosinophils/100 leukocytes 3 % 0-10 Automated blood basophils/100 leukocytes 0 % 0-10 Blood neutrophils automated count (number/volume) 4.2 10*3 1.8-7.8 Blood lymphocytes automated count (number/volume) 2.1 10*3 1.0-4.0 Blood monocytes automated count (number/volume) 0. 7 10*3 0.0-1.0 Automated eosinophil count 0.2 10*3/uL 0 .0-0.3 Automated blood basophil count (count/volume) 0.0 10*3/uL 0.0-0.1 PT panel in platelet poor plasma by coag ulation assay - 07/27/18 13:40 Prothrombin time (PT) in platelet poor plasma by coagu lation assay 12.6 s 12.2-14.7 INR in platelet poor plasma or blood by coagulation as say 0.9 0.8-1.4 Activated partial thromboplastin time (a PTT) in platelet poor plasma bycoagulation assay - 07/27/18 13:40 Activated partial thromboplastin time (a PTT) in platelet poor plasma bycoagulation assay 25 s 24-35 Fibrin D-dimer FEU measurement in platel et poor plasma (mass/volume) - 07/27/18 13:40 Fibrin D-dimer FEU measurement in platelet poor plasma (mass/volume) 0.37 ug/mL 0.00-0.49 Comprehensive metabolic panel - 07/27/18 13:40 Serum or plasma sodium measurement (moles/volume) 139 mmol/L 135-145 Serum or plasma potassium measurement (moles/volume) 3.6 mmol/L 3.6-5.0 Serum or plasma chloride measurement (moles/volume) 107 mmol/L 98-107 Carbon dioxide 22 mmol/L 21-32 Serum or plasma anion gap determination (moles/volume) 10 mmol/L 5-14 Serum or plasma urea nitrogen measurement (mass/volume ) 13 mg/dL 7-18 Serum or plasma creatinine measurement (mass/volume) 1.10 mg/dL 0.60-1.30 Serum or plasma urea nitrogen/creatinine mass ratio 12 NRG Serum or plasma creatinine measurement w ith calculation of estimated glomerular filtration rate > NRG Serum or plasma glucose measurement (mass/volume) 137 mg/dL 70-105 Serum or plasma calcium measurement (mass/volume) 9.4 mg/dL 8.5-10.1 Serum or plasma total bilirubin measurement (mass/volu me) 0.5 mg/dL 0.1-1.0 Serum or plasma alkaline phosphatase lauren surement (enzymatic activity/volume) 68 U/L 40-136 Serum or plasma aspartate aminotransfera se measurement (enzymatic activity/volume) 24 U/L 5-34 Serum or plasma alanine aminotransferase measurement (enzymatic activity/volume) 42 U/L 0-55 Serum or plasma protein measurement (mass/volume) 7.0 g/dL 6.4-8.2 Serum or plasma albumin measurement (mass/volume) 4.2 g/dL 3.2-4.5 CALCIUM CORRECTED 9.2 mg/dL 8.5-10.1 Magnesium - 07/27/18 13:40 Magnesium 2.2 mg/dL 1.8-2.4 Lipase - 07/27/18 13:40 Lipase 341 U/L 8-78 Serum or plasma troponin i.cardiac measu rement (mass/volume) - 07/27/18 13:40 Serum or plasma troponin i.cardiac measurement (mass/v olume) < ng/mL <0.30 THYROID STIMULATING HORMONE - 07/27/18 1 3:40 THYROID STIMULATING HORMONE 1.65 u[iU]/mL 0.35-4.94 Myoglobin, serum - 07/27/18 13:40 Myoglobin, serum 30.3 ng/mL 10.0-92.0 Urine drug screening test - 07/27/18 15: 10 Urine phencyclidine detection by screening method NEGATIVE NEGATIVE Urine benzodiazepines detection by screening method NEGATIVE NEGATIVE Urine cocaine detection NEGATIVE NEGATI VE Urine amphetamines detection by screening method N EGATIVE NEGATIVE Urine methamphetamine detection by screening method NEGATIVE NEGATIVE Urine cannabinoids detection by screening method N EGATIVE NEGATIVE Urine opiates detection by screening method NEGATI VE NEGATIVE Urine barbiturates detection NEGATIVE N EGATIVE Screening urine tricyclic antidepressants detection NEGATIVE NEGATIVE Urine methadone detection by screening method NEGA TIVE NEGATIVE Urine oxycodone detection NEGATIVE NEGA TIVE Urine propoxyphene detection NEGATIVE N EGATIVE Complete urinalysis with reflex to cultu re - 07/27/18 15:10 Urine color determination YELLOW NRG Urine clarity determination CLEAR NR G Urine pH measurement by test strip 5 5-9 Specific gravity of urine by test strip 1.020 1.016-1.022 Urine protein assay by test strip, semi-quantitative NEGATIVE NEGATIVE Urine glucose detection by automated test strip NE GATIVE NEGATIVE Erythrocytes detection in urine sediment by light micr oscopy NEGATIVE NEGATIVE Urine ketones detection by automated test strip NE GATIVE NEGATIVE Urine nitrite detection by test strip NEGATIVE NEGATIVE Urine total bilirubin detection by test strip NEGA TIVE NEGATIVE Urine urobilinogen measurement by automated test strip (mass/volume) NORMAL NORMAL Urine leukocyte esterase detection by dipstick 1+ NEGATIVE Automated urine sediment erythrocyte cou nt by microscopy (number/high power field) NONE NRG Automated urine sediment leukocyte count by microscopy (number/high power field) [HPF] NRG Bacteria detection in urine sediment by light microsco py NONE NRG Crystals detection in urine sediment by light microsco py NONE NRG Casts detection in urine sediment by light microscopy NONE NRG Mucus detection in urine sediment by light microscopy SMALL NRG Complete urinalysis with reflex to culture NO NRG Serum or plasma troponin i.cardiac measu rement (mass/volume) - 07/27/18 20:05 Serum or plasma troponin i.cardiac measurement (mass/v olume) < ng/mL <0.30 Serum or plasma troponin i.cardiac measu rement (mass/volume) - 07/28/18 01:52 Serum or plasma troponin i.cardiac measurement (mass/v olume) < ng/mL <0.30 Lipase - 07/28/18 05:03 Lipase 49 U/L 8-78 Lipid 1996 panel - 07/28/18 05:03 Serum or plasma triglyceride measurement (mass/volume) 157 mg/dL <150 Serum or plasma cholesterol measurement (mass/volume) 190 mg/dL < 200 Serum or plasma cholesterol in HDL measurement (mass/v olume) 29 mg/dL 40-60 Cholesterol in LDL [mass/volume] in serum or plasma by direct assay 145 mg/dL 1-129 Serum or plasma cholesterol in VLDL measurement (mass/ volume) 31 mg/dL 5-40 CRP, CARDIAC - 09/21/19 10:05 HS CRP 3.9 mg/L NRG Complete urinalysis with reflex to cultu re - 10/10/19 18:00 Urine color determination YELLOW NRG Urine clarity determination CLEAR NR G Urine pH measurement by test strip 5.5 5-9 Specific gravity of urine by test strip 1.025 1.016-1.022 Urine protein assay by test strip, semi-quantitative NEGATIVE NEGATIVE Urine glucose detection by automated test strip NE GATIVE NEGATIVE Erythrocytes detection in urine sediment by light micr oscopy NEGATIVE NEGATIVE Urine ketones detection by automated test strip NE GATIVE NEGATIVE Urine nitrite detection by test strip NEGATIVE NEGATIVE Urine total bilirubin detection by test strip NEGA TIVE NEGATIVE Urine urobilinogen measurement by automated test strip (mass/volume) 0.2 mg/dL < = 1.0 Urine leukocyte esterase detection by dipstick NEG ATIVE NEGATIVE Automated urine sediment erythrocyte cou nt by microscopy (number/high power field) NONE NRG Automated urine sediment leukocyte count by microscopy (number/high power field) NONE NRG Bacteria detection in urine sediment by light microsco py NEGATIVE NRG Crystals detection in urine sediment by light microsco py PRESENT NRG Casts detection in urine sediment by light microscopy NONE NRG Mucus detection in urine sediment by light microscopy NEGATIVE NRG Complete urinalysis with reflex to culture NO NRG Amorphous sediment detection in urine sediment by ligh t microscopy FEW VARGHESE URATES NRG Complete blood count (CBC) with automate d white blood cell (WBC) differential - 10/10/19 18:00 Blood leukocytes automated count (number/volume) 8.9 10*3/uL 4.3-11.0 Blood erythrocytes automated count (number/volume) 5.12 10*6/uL 4.35-5.85 Venous blood hemoglobin measurement (mass/volume) 15.5 g/dL 13.3-17.7 Blood hematocrit (volume fraction) 45 % 40-54 Automated erythrocyte mean corpuscular volume 88 [ foz_us] 80-99 Automated erythrocyte mean corpuscular h emoglobin (mass per erythrocyte) 30 pg 25-34 Automated erythrocyte mean corpuscular h emoglobin concentration measurement (mass/volume) 34 g/dL 32-36 Automated erythrocyte distribution width ratio 12. 8 % 10.0- 14.5 Automated blood platelet count (count/volume) 345 10*3/uL 130-400 Automated blood platelet mean volume measurement 9.6 [foz_us] 7.4-10.4 Automated blood neutrophils/100 leukocytes 64 % 42-75 Automated blood lymphocytes/100 leukocytes 26 % 12-44 Blood monocytes/100 leukocytes 8 % 0-12 Automated blood eosinophils/100 leukocytes 2 % 0-10 Automated blood basophils/100 leukocytes 0 % 0-10 Blood neutrophils automated count (number/volume) 5.7 10*3 1.8-7.8 Blood lymphocytes automated count (number/volume) 2.3 10*3 1.0-4.0 Blood monocytes automated count (number/volume) 0. 7 10*3 0.0-1.0 Automated eosinophil count 0.1 10*3/uL 0 .0-0.3 Automated blood basophil count (count/volume) 0.0 10*3/uL 0.0-0.1 Comprehensive metabolic panel - 10/10/19 18:00 Serum or plasma sodium measurement (moles/volume) 140 mmol/L 135-145 Serum or plasma potassium measurement (moles/volume) 3.9 mmol/L 3.6-5.0 Serum or plasma chloride measurement (moles/volume) 105 mmol/L 98-107 Carbon dioxide 23 mmol/L 21-32 Serum or plasma anion gap determination (moles/volume) 12 mmol/L 5-14 Serum or plasma urea nitrogen measurement (mass/volume ) 14 mg/dL 7-18 Serum or plasma creatinine measurement (mass/volume) 1.09 mg/dL 0.60-1.30 Serum or plasma urea nitrogen/creatinine mass ratio 13 NRG Serum or plasma creatinine measurement w ith calculation of estimated glomerular filtration rate > NRG Serum or plasma glucose measurement (mass/volume) 114 mg/dL 70-105 Serum or plasma calcium measurement (mass/volume) 9.6 mg/dL 8.5-10.1 Serum or plasma total bilirubin measurement (mass/volu me) 0.2 mg/dL 0.1-1.0 Serum or plasma alkaline phosphatase lauren surement (enzymatic activity/volume) 76 U/L 40-136 Serum or plasma aspartate aminotransfera se measurement (enzymatic activity/volume) 30 U/L 5-34 Serum or plasma alanine aminotransferase measurement (enzymatic activity/volume) 54 U/L 0-55 Serum or plasma protein measurement (mass/volume) 7.9 g/dL 6.4-8.2 Serum or plasma albumin measurement (mass/volume) 4.5 g/dL 3.2-4.5 CALCIUM CORRECTED 9.2 mg/dL 8.5-10.1 Lipase - 10/10/19 18:00 Lipase 105 U/L 8-78 Serum or plasma C reactive protein measu rement (mass/volume) - 10/10/19 18:00 Serum or plasma C reactive protein measurement (mass/v olume) 0.40 mg/dL 0.00-0.50 Erythrocyte sedimentation rate by cisco gren method - 10/10/19 18:00 Erythrocyte sedimentation rate by westergren method 9 mm 0- 15 Encounters ACCT No. Visit Date/Time Discharge Status Pt. Type Provider Facility Loc./Unit Complaint [id number] 10/31/2019 10:30:00 10/31/2019 23:59: 59 [id number] 09/21/2019 09:40:00 Document Registration [id number] 10/22/2019 08:29:00 23:59:59 CLS Outpatient JO IYER [facility] RAD SPINAL STENOSIS [id number] 10/13/2019 18:11:00 19:30:00 DIS Emergency KAYLA TO APRN [facility] ER BACK PAIN [id number] 10/10/2019 17:40:00 20:40:00 DIS Emergency NITESH PARIKH MD [facility] ER POSS KIDNEY STO NE [id number] 02/27/2019 10:37:00 019 12:25:00 DIS Emergency BERNBENNIE MONTGOMERY [facility] ER FINGER LAC [id number] 08/02/2018 10:26:00 018 13:15:00 DIS Emergency JESSE CASTILLO [facility] ER R ARM PAIN AFTER HEART CATH [id number] 07/27/2018 16:42:00 018 17:25:00 DIS Outpatient MARIELENA CORDOBA DO [facility] CATH CHEST PAIN, PANCREATITI S
== END 2019-10-13 19:30 | disposition home or self-care (01) ==
LOC: EDUNIT# 18:10 → ER 18:11
DX: M48.061 Spinal stenosis, lumbar region without neurogenic claudication (principal); I10 Essential (primary) hypertension; J45.909 Unspecified asthma, uncomplicated; I25.2 Old myocardial infarction; I25.10 Atherosclerotic heart disease of native coronary artery without angina pectoris; E78.00 Pure hypercholesterolemia, unspecified; G43.909 Migraine, unspecified, not intractable, without status migrainosus; Z87.442 Personal history of urinary calculi; Z88.5 Allergy status to narcotic agent; Z88.0 Allergy status to penicillin; Z88.1 Allergy status to other antibiotic agents; Z88.8 Allergy status to other drugs, medicaments and biological substances; Z79.82 Long term (current) use of aspirin; Z77.22 Contact with and (suspected) exposure to environmental tobacco smoke (acute) (chronic); Z95.5 Presence of coronary angioplasty implant and graft; Z82.49 Family history of ischemic heart disease and other diseases of the circulatory system; Z80.8 Family history of malignant neoplasm of other organs or systems
CPT/HCPCS: 96372; 99284

== ENCOUNTER → 2019-10-22 | Outpatient (CLI) | payer OTHER ==
[~2019-10-22] MED LIST changes: +ACET-789 PO; +ATOR10TA PO; +FAMO20TA5 PO; +GABA-488 PO; +HYDR-3820 PO; +METH-313 PO; +METO-351 PO; +NAPR500T8 PO
--- NOTE | 2019-10-22 10:56 | Diagnostic Imaging Report ---
PROCEDURE: MRI lumbar spine. TECHNIQUE: Multiplanar, multisequence MRI of the lumbar spine was performed without contrast. INDICATION: Low back pain with bilateral leg numbness. FINDINGS: The alignment of lumbar spine is normal. The vertebral body heights are well-maintained. No spondylolysis or spondylolisthesis. No fractures are identified. Conus medullaris is seen at L1 is normal in appearance. At T12-L1, the disc is normal in height, signal intensity and morphology. There is no spinal or neural foraminal encroachment. At L1-L2, the disc is normal in height, signal intensity and morphology. There is no spinal or neural foraminal encroachment. At L2-L3, disc is normal in height, signal intensity and morphology. There is some mild facet disease. This contributes to some minimal central spinal stenosis and minimal neural foraminal encroachment. At L3-L4, the disc is normal in height, signal intensity and morphology. There is some facet disease and thickening of ligamentum flavum. There is mild central spinal stenosis and minimal bilateral neural foraminal encroachment. At L4-L5, there is loss of disc height and signal intensity. There is some annular bulging, facet disease and thickening of ligamentum flavum. There is moderate spinal stenosis with some encroachment upon the lateral recess bilaterally. There is moderate right and moderate to severe left neural foraminal encroachment. At L5-S1, there is mild facet disease. There is no significant spinal or neural foraminal encroachment. The aorta is nonaneurysmal. Kidneys are normal in appearance. IMPRESSION: Lower lumbar spondylosis with degenerative disc disease as detailed above. Dictated by: Dictated on workstation # [id number]
== END ==
LOC: RAD 08:29
PROVIDERS: ATTEND Physician Assistant
DX: M48.061 Spinal stenosis, lumbar region without neurogenic claudication (principal); M47.816 Spondylosis without myelopathy or radiculopathy, lumbar region; M51.36 Other intervertebral disc degeneration, lumbar region
CPT/HCPCS: 72148

== ENCOUNTER 2019-11-26 22:28 | Emergency (ER) | payer SELFPAY ==
[~2019-11-26] VITALS: Ht 167 cm; Wt 100.0 kg
[~2019-11-26 22:28] MED LIST changes: -HYDR-3820 PO
--- NOTE | 2019-11-26 23:51 | ED Back Pain ---
General Chief Complaint: Back Problems Stated Complaint: LOWER L SIDE BACK PAIN Nursing Triage Note: Patient states hx. of spinal stenosis and degenerative disc disease. He advised he has been seeing his PCP for the past 2-3 months secondary to back pain. He advises the pain has become progressively worse and he is now experiencing a pinching pain radiating down his left leg. He advises numbness and tingling to the left lower extremity intermittently as well as intermittent incontinence. Nursing Sepsis Screen: No Definite Risk Source of Information: Patient Exam Limitations: No Limitations History of Present Illness Date Seen by Provider: Nov 27, 2019 Time Seen by Provider: 23:25 Initial Comments This 39-year-old gentleman presents to the emergency room with worsening symptoms of spinal stenosis. He was first diagnosed with radicular back pain issues in September. In October he had an outpatient MRI confirming spinal stenosis and disc bulging. Since then he has been seeing Dr. Lynne for pain management. He has tried a combination of medications including hydrocodone, prednisone, gabapentin, amitriptyline, and NSAIDs. He has had fair pain control until the past several days. He describes no new weakness, groin paresthesia, or incontinence. His symptoms are primarily in the left lower back radiating down to the left distal thigh. He has had significant trouble sleeping and would like some relief. Pain is largely positional. Allergies and Home Medications Allergies Coded Allergies: tramadol (Verified Allergy, Intermediate, 07/27/18) SEIZURES amoxicillin (Verified Allergy, Mild, RASH, 07/27/18) erythromycin base (Verified Allergy, Unknown, 10/10/19) Home Medications Acetaminophen with Codeine 1 Each Tablet, 2 EACH PO Q8H PRN for PAIN-MODERATE (5-7), (Reported) Aspirin 81 Mg Tablet.dr, 81 MG PO DAILY, (Reported) Atorvastatin Calcium 10 Mg Tablet, 10 MG PO HS Prescribed by: Stefany GLOVER on 11/19/19 1408 Famotidine 20 Mg Tablet, 20-40 MG PO HS PRN for HEARTBURN, (Reported) Gabapentin 300 Mg Capsule, 300 MG PO BID, (Reported) Hydrocodone/Acetaminophen 1 Each Tablet, 1 EACH PO Q4H PRN for PAIN-MODERATE Prescribed by: NITESH GARCÍA on 11/26/19 1892 Lisinopril 5 Mg Tablet, 5 MG PO DAILY Prescribed by: Stefany GLOVER on 11/19/19 1410 Metoprolol Succinate 25 Mg Tab.er.24h, 25 MG PO DAILY Prescribed by: Stefany GLOVER on 11/19/19 1411 Naproxen 500 Mg Tablet.dr, 500 MG PO BID, (Reported) Patient Home Medication List Home Medication List Reviewed: Yes Review of Systems Constitutional: no symptoms reported EENTM: no symptoms reported Respiratory: no symptoms reported Cardiovascular: no symptoms reported Gastrointestinal: no symptoms reported Genitourinary: no symptoms reported Musculoskeletal: see HPI Skin: no symptoms reported Psychiatric/Neurological: See HPI Past Sctcztm-Cgaymp-Tnvgzb Hx Past Med/Social Hx: Reviewed Nursing Past Med/Soc Hx Patient Social History Alcohol Use: Occasionally Uses Recreational Drug Use: No Smoking Status: Never a Smoker Type Used: Smokeless Tobacco 2nd Hand Smoke Exposure: No Recent Foreign Travel: No Contact w/Someone Who Travel: No Recent Infectious Disease Expo: No Recent Hopitalizations: No Immunizations Up To Date Tetanus Booster (TDap): Less than 5yrs Seasonal Allergies Seasonal Allergies: No Past Medical History Surgeries: Yes Coronary Stent, Orthopedic Respiratory: Yes Asthma Cardiac: Yes Coronary Artery Disease, Heart Murmur, High Cholesterol, Hypertension, Irregular Heartbeat Neurological: No Headaches /Migraines Genitourinary: Yes Kidney Stones Gastrointestinal: Yes Gastroesophageal Reflux Musculoskeletal: Yes (lumbar spinal stenosis and disc bulging) Endocrine: No HEENT: No Cancer: No Psychosocial: No Integumentary: No Blood Disorders: No Family Medical History Cardiovascular disease 19 FATHER 19 MOTHER FH: CHF (congestive heart failure) 19 FATHER FH: throat cancer 19 MOTHER Physical Exam Vital Signs Vital Signs - First Documented 11/26/19 23:04 Temp 36.7 Pulse 86 Resp 14 B/P (MAP) 121/81 (94) Pulse Ox 96 O2 Delivery Room Air Capillary Refill : Less Than 3 Seconds Height, Weight, BMI Height: 5'6.00" Weight: 220lbs. 13.4oz. 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 Norm as Tested, Abnormal Cerebellar Tests Skin: Normal Color, Warm/Dry Progress/Results/Core Measures Results/Orders My Orders Orders - NITESH PARIKH MD Hydrocodone/Apap 5/325 Tablet (Lortab 5 (11/27/19 00:00) Medications Given in ED Current Medications Medications Dose Ordered Sig/Faisal Route Start Time Stop Time Status Last Admin Dose Admin Acetaminophen/ Hydrocodone Bitart 2 tab ONCE ONCE PO 11/27/19 00:00 11/27/19 00:01 DC 11/26/19 23:58 2 TAB Vital Signs/I&O 11/26/19 11/27/19 23:04 00:22 Temp 36.7 Pulse 86 86 Resp 14 14 B/P (MAP) 121/81 (94) 121/81 Pulse Ox 96 96 O2 Delivery Room Air Room Air Blood Pressure Mean: 94 Progress Progress Note : Progress Note Unfortunately this patient has spinal stenosis and disc bulging and there is little that can be done to resolve his pain from an ear perspective. He has had multiple courses of steroids since September. He is on multiple medications for pain management as prescribed from the clinic. I have advised him to increase his gabapentin to 600 mg dosing. I will also prescribe him some hydrocodone. I recommended that he work with the patient navigator at the clinic to see about additional resources for help with obtaining health care coverage. Dose of hydrocodone was given prior to dismissal. Departure Impression Primary Impression: Lumbar radiculopathy Additional Impression: Lumbar stenosis Qualified Codes: M48.061 - Spinal stenosis, lumbar region without neurogenic claudication Disposition: HOME, SELF-CARE Condition: Improved Departure-Patient Inst. Decision time for Depature: 23:50 Referrals: JO LYNNE MD (PCP/Family) Primary Care Physician Patient Instructions: Spinal Stenosis, Radiculopathy (DC) Add. Discharge Instructions: Increase your gabapentin to 600 mg 3 times daily. Take hydrocodone as prescribe d. Follow-up with your primary care provider soon as you're able. Perhaps a patient navigator at [facility] will be able to help you identify other resources that your disposal. Return to care if you have worsening symptoms that are not controlled by a change in medications. You may wish to use a stool softener such as Colace 100 mg once or twice a day to help with constipation while you're on pain medications. Milk of magnesia or MiraLAX (polyethylene glycol) may also be used per package instructions for more severe constipation. Return to the emergency room if you develop significant weakness in your legs, numbness in your groin, or difficulty controlling bowel or bladder functions. Work toward weight loss to reduce strain on your back. Try to lose about 10 pounds within the next month. All discharge instructions reviewed with patient and/or family. Voiced understanding. Scripts Hydrocodone/Acetaminophen (Hydrocodon-Acetaminophn 10-325) 1 Each Tablet 1 EACH PO Q4H PRN for PAIN-MODERATE MDD 5, #20 TAB 0 Refills Prov: NITESH PARIKH MD 11/26/19 NITESH PARIKH MD Nov 26, 2019 23:51
[2019-11-26] MEDS ORDERED: HYDR-3820 PO (23:54)
[2019-11-27] MEDS ORDERED: HYDROcodone/APAP 5 MG/325 MG (LORTAB) TAB PO ONE
[2019-11-27 00:22] VITALS: BP 121/81
== END 2019-11-27 00:23 | disposition home or self-care (01) ==
LOC: EDUNIT# 22:28 → ER 22:29
DX: M54.16 Radiculopathy, lumbar region (principal); M48.061 Spinal stenosis, lumbar region without neurogenic claudication; J45.909 Unspecified asthma, uncomplicated; I25.10 Atherosclerotic heart disease of native coronary artery without angina pectoris; E78.00 Pure hypercholesterolemia, unspecified; G43.909 Migraine, unspecified, not intractable, without status migrainosus; K21.9 Gastro-esophageal reflux disease without esophagitis; Z87.442 Personal history of urinary calculi; Z88.5 Allergy status to narcotic agent; Z88.0 Allergy status to penicillin; Z88.1 Allergy status to other antibiotic agents; Z79.82 Long term (current) use of aspirin; Z95.5 Presence of coronary angioplasty implant and graft; Z82.49 Family history of ischemic heart disease and other diseases of the circulatory system; Z80.8 Family history of malignant neoplasm of other organs or systems

== ENCOUNTER 2020-01-24 17:58 | Emergency (ER) | payer OTHER ==
[~2020-01-24] VITALS: Ht 165.1 cm; Wt 99.8 kg
[~2020-01-24 17:58] MED LIST changes: +ACHYD1T PO
--- NOTE | 2020-01-24 19:09 | NUR ---
REPORT TO HERNANDO SHAFER
--- NOTE | 2020-01-24 19:09 | NUR ---
REPORT TO HERNANDO SHAFER
[2020-01-24] MEDS ORDERED: METH4TAB PO (19:19)
--- NOTE | 2020-01-24 19:19 | ED Back Pain ---
General Chief Complaint: Back Problems Stated Complaint: PAIN IN BACK Nursing Triage Note: Pt amb to triage with c/o lower back pain. Pt reports chronic back discomfort d/t bulging disks et degenerative disk disease. Pt reports x4 episodes of urinary incontinence within x1 month. Pt reports decrease in ability to carry out ADL's. A&OX4. Nursing Sepsis Screen: No Definite Risk Source of Information: Patient History of Present Illness Date Seen by Provider: Jan 24, 2020 Time Seen by Provider: 18:48 Initial Comments PT ARRIVES VIA POV FROM HOME C/O CHRONIC BACK PAIN -WORSE FOR THE LAST 2 WEEKS STATES "I HAVE SPINAL STENOSIS, AND DEGENERATIVE DISC DISEASE AND BULGING DISCS IN MY BACK" STATES HE HAS HAD 4 EPISODES OF URINARY INCONTINENCE ( OCCURS ONLY AT NIGHT) FOR THE LAST 3 WEEKS--CLAIMS IT HAS NOT HAPPENED BEFORE. NO PAIN ON URINATION OR CHANGE IN COLOR OF URINE, AND NO INCONTINENCE WHILE HE IS AWAKE. NO BOWEL INCONTINENCE NO PERINEAL NUMBNESS STATES PAIN RADIATES DOWN BOTH LEGS TO MID-THIGH STATES PAIN IS WORSE WITH STANDING OR SITTING UPRIGHT, AND IS IMPROVED WITH BENDING OVER AND STRETCHING. PAIN IS POSITIONAL. NO PARESTHESIAS OR MOTOR DEFICITS NO DIFFICULTY WALKING PT STATES HE TAKES GABAPENTIN, METHOCARBAMOL, AMITRIPTYLINE, AND TYLENOL FOR THIS PROBLEM--STATES "NOTHING'S HELPING". HAS TAKEN NAPROXEN IN THE PAST--"DIDN'T HELP". STATES HE HAD SEIZURES WHEN HE HAS TAKEN TRAMADOL IN THE PAST. HAS NOT SOUGHT CARE IN THE LAST 2 WEEKS FOR THIS PROBLEM PT STATES HE SEES DR. LYNNE FOR THIS PROBLEM--PT STATES "HE SAYS HE CAN'T REFER ME TO A NEUROSURGEON OR A PAIN CLINIC BECAUSE I DON'T HAVE ANY INSURANCE" --YET MRI WAS ORDERED BY NEUROSURGEON, DR. JENSEN. PT DID HAVE MRI ON 10/22/19 AT THIS FACILITY, AND WAS FOUND INCIDENTALLY ON CT OF ABDOMEN/PELVIS ON EVALUATION FOR ABDOMINAL PAIN/BACK PAIN ON 10/10/19 PT WAS SEEN IN THIS ER 10/13/19 FOR THIS PROBLEM AND WAS GIVEN RX FOR ROBAXIN 750 MG #20, AND ALSO SEEN HERE ON 11/26/19 FOR THIS SAME PROBLEM AND WAS GIVEN RX FOR HYDROCODONE 10/325 #20 PT GAVE IDENTICAL STORIES TO THE ONE HE IS STATING TODAY, ON BOTH OF THOSE VISITS, INCLUDING REPORTING INCONTINENCE. PT HAS HAD 4 VISITS SINCE 10/10/19 FOR BACK PAIN Other Comments PCP: DR. LYNNE AT [facility]--LAST VISIT WAS 3 WEEKS AGO Allergies and Home Medications Allergies Coded Allergies: tramadol (Verified Allergy, Intermediate, 07/27/18) SEIZURES amoxicillin (Verified Allergy, Mild, RASH, 07/27/18) erythromycin base (Verified Allergy, Unknown, 10/10/19) Home Medications Acetaminophen with Codeine 1 Each Tablet, 2 EACH PO Q8H PRN for PAIN-MODERATE (5-7), (Reported) Aspirin 81 Mg Tablet.dr, 81 MG PO DAILY, (Reported) Atorvastatin Calcium 10 Mg Tablet, 10 MG PO HS Prescribed by: Stefany GLOVER on 11/19/19 1408 Famotidine 20 Mg Tablet, 20-40 MG PO HS PRN for HEARTBURN, (Reported) Gabapentin 300 Mg Capsule, 300 MG PO BID, (Reported) Hydrocodone Bit/Acetaminophen 1 Each Tablet, 1 EACH PO Q4H PRN for PAIN-MODERATE Prescribed by: NITESH GARCÍA on 11/26/19 2354 Lisinopril 5 Mg Tablet, 5 MG PO DAILY Prescribed by: Stefany GLOVER on 11/19/19 1410 Methylprednisolone 4 Mg Tab.ds.pk, 4 MG PO UD PER DOSE PACK INSTRUCTIONS Prescribed by: AURELIANO ALFARO on 01/24/20 1919 Metoprolol Succinate 25 Mg Tab.er.24h, 25 MG PO DAILY Prescribed by: Stefany GLOVER on 11/19/19 1411 Naproxen 500 Mg Tablet.dr, 500 MG PO BID, (Reported) Patient Home Medication List Home Medication List Reviewed: Yes Review of Systems Constitutional: no symptoms reported Respiratory: no symptoms reported Cardiovascular: no symptoms reported Gastrointestinal: no symptoms reported; No abdominal pain, No nausea, No vomiting; other (STATES HE HAS 6-9 SMALL SOFT BM'S A DAY FOR THE LAST 6 MONTHS. ) Genitourinary: see HPI; No dysuria, No frequency; incontinence, nocturia Musculoskeletal: see HPI, back pain Skin: no symptoms reported Psychiatric/Neurological: No Symptoms Reported; Denies Numbness, Denies Paresthesia, Denies Tingling, Denies Weakness Past Qocuagq-Wxqvoz-Gmpced Hx Past Med/Social Hx: Reviewed and Corrections made Patient Social History Alcohol Use: Occasionally Uses Recreational Drug Use: Yes (SMOKED METH AND THC) Drug of Choice: SMOKED METH AND THC Smoking Status: Never a Smoker Type Used: Smokeless Tobacco 2nd Hand Smoke Exposure: No Recent Foreign Travel: No Contact w/Someone Who Travel: No Recent Infectious Disease Expo: No Recent Hopitalizations: No Physical Abuse: No Sexual Abuse: No Immunizations Up To Date Tetanus Booster (TDap): Less than 5yrs Seasonal Allergies Seasonal Allergies: No Past Medical History Surgeries: Yes (SEE BELOW) Cardiac, Coronary Stent, Orthopedic Respiratory: Yes (DOES NOT HAVE AN INHALER) Asthma Cardiac: Yes (CLAIMS [place] X 2--STENT IN 2007, AND STENT IN STENT 2014) Coronary Artery Disease, Heart Attack, Heart Murmur, High Cholesterol, Hypertension, Irregular Heartbeat Neurological: Yes (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) Headaches /Migraines Genitourinary: Yes Kidney Stones Gastrointestinal: Yes Gastroesophageal Reflux Musculoskeletal: Yes (lumbar spinal stenosis and disc bulging) Degenerate Disk Disease, Chronic Back Pain Endocrine: No HEENT: No Cancer: No Psychosocial: No Integumentary: No Blood Disorders: No Family Medical History Cardiovascular disease 19 FATHER 19 MOTHER FH: CHF (congestive heart failure) 19 FATHER FH: throat cancer 19 MOTHER PSH: -CARDIAC CATHS WITH STENT IN 2007, AND ANOTHER STENT ( IN PREVIOUS STENT) IN 2014 -KINDEY STONE BASKET REMOVAL X 2, AND LITHOTRIPSY X 2 -BILATERAL KNEE SCOPES--RIGHT KNEE X 1 -1993, LEFT KNEE X 2--2006, 2014 Physical Exam Vital Signs Vital Signs - First Documented 01/24/20 18:22 Temp 36.9 Pulse 83 Resp 18 B/P (MAP) 122/85 (97) Pulse Ox 100 O2 Delivery Room Air Capillary Refill : Less Than 3 Seconds Height, Weight, BMI Height: 5'6.00" Weight: 220lbs. 13.4oz. 99.975596xl; 36.00 BMI Method:Stated General Appearance: No Apparent Distress, Obese Neck: Full Range of Motion, Normal Inspection, Non Tender, Supple Cardiovascular: Regular Rate, Rhythm, No Edema, No JVD, No Murmur, Normal Peripheral Pulses Respiratory: Normal Breath Sounds, No Accessory Muscle Use, No Respiratory Distress Peripheral Pulses: 2+ Dorsalis Pedis (R), 2+ Left Dors-Pedis (L) Gastrointestinal: Non Tender, Soft Back: Other (DIFFUSE LOW BACK TENDERNESS. DTR'S INTACT. 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 Norm as Tested Skin: Normal Color, Warm/Dry, Tattoos/Piercings (EXTENSIVE TATTOOS), Other (DOES HAVE OLD BURN MACIAS/HYPERPIGMENTATION FROM HEATING PAD--NO NEW AREAS) Progress/Results/Core Measures Results/Orders Lab Results Laboratory Tests Test 01/24/20 19:06 Range/Units Urine Color YELLOW Urine Clarity CLEAR Urine pH 6.0 5-9 Urine Specific [place] 1.025 H 1.016-1.022 Urine Protein NEGATIVE NEGATIVE Urine Glucose (UA) NEGATIVE NEGATIVE Urine Ketones NEGATIVE NEGATIVE Urine Nitrite NEGATIVE NEGATIVE Urine Bilirubin NEGATIVE NEGATIVE Urine Urobilinogen 0.2 < = 1.0 MG/DL Urine Leukocyte Esterase NEGATIVE NEGATIVE Urine RBC (Auto) NEGATIVE NEGATIVE Urine RBC NONE /HPF Urine WBC NONE /HPF Urine Crystals NONE /LPF Urine Bacteria TRACE /HPF Urine Casts NONE /LPF Urine Mucus NEGATIVE /LPF Urine Culture Indicated NO Urine Opiates Screen NEGATIVE NEGATIVE Urine Oxycodone Screen NEGATIVE NEGATIVE Urine Methadone Screen NEGATIVE NEGATIVE Urine Propoxyphene Screen NEGATIVE NEGATIVE Urine Barbiturates Screen NEGATIVE NEGATIVE Ur Tricyclic Antidepressants Screen POSITIVE H NEGATIVE Urine Phencyclidine Screen NEGATIVE NEGATIVE Urine Amphetamines Screen NEGATIVE NEGATIVE Urine Methamphetamines Screen NEGATIVE NEGATIVE Urine Benzodiazepines Screen NEGATIVE NEGATIVE Urine Cocaine Screen NEGATIVE NEGATIVE Urine Cannabinoids Screen POSITIVE H NEGATIVE My Orders Orders - AURELIANO ALFARO DO Drug Screen Stat (Urine) (01/24/20 19:05) Ua Culture If Indicated (01/24/20 19:05) Ketorolac Injection (Toradol Injection) (01/24/20 19:30) Orphenadrine Injection (Norflex Injectio (01/24/20 19:30) Diphenhydramine Injection (Benadryl Inje (01/24/20 19:30) Vital Signs/I&O 01/24/20 01/24/20 18:22 19:45 Temp 36.9 Pulse 83 81 Resp 18 18 B/P (MAP) 122/85 (97) 134/87 (97) Pulse Ox 100 97 O2 Delivery Room Air Blood Pressure Mean: 97 Progress Progress Note : Progress Note UNEVENTFUL ER STAY Departure Impression Primary Impression: Chronic back pain Additional Impression: Lumbar radiculopathy Disposition: 01 HOME, SELF-CARE Condition: Stable Departure-Patient Inst. Referrals: JO LYNNE MD (PCP/Family) Primary Care Physician Patient Instructions: MANAGING YOUR CHRONIC PAIN, Low Back Pain (DC), Radiculopathy (DC) Add. Discharge Instructions: MOIST HEAT TO BACK AT 20 MINUTE INTERVALS CONTINUE YOUR REGULAR MEDICATIONS PRESCRIBED FOLLOW UP WITH DR. LYNNE THIS WEEK FOR FURTHER CARE All discharge instructions reviewed with patient and/or family. Voiced understanding. Scripts Methylprednisolone (Medrol) 4 Mg Tab.ds.pk 4 MG PO UD for 6 Days, #21 PKG PER DOSE PACK INSTRUCTIONS Prov: AURELIANO ALFARO DO 01/24/20 AURELIANO ALFARO DO Jan 24, 2020 19:19
[2020-01-24] MEDS ORDERED: diphenhydrAMINE 50 MG/ML INJ (BENADRYL) IM ONE (19:30)
[2020-01-24] MEDS ORDERED: ORPHENADRINE 60 MG/2 ML (NORFLEX) AMP IM ONE (19:30)
[2020-01-24] MEDS ORDERED: KETOROLAC 60 MG/2 ML VIAL IM ONE (19:30)
[2020-01-24 19:41] LABS: BILIRUBIN,URINE NEGATIVE (NEGATIVE); CLARITY,URINE CLEAR; COLOR,URINE YELLOW; GLUCOSE, URINE (UA) NEGATIVE (NEGATIVE); KETONES,URINE NEGATIVE (NEGATIVE); LEUKOCYTE ESTERASE ,URINE NEGATIVE (NEGATIVE); NITRITE,URINE NEGATIVE (NEGATIVE); PROTEIN,URINE NEGATIVE (NEGATIVE)
[2020-01-24 19:45] VITALS: BP 134/87
[2020-01-24 19:52] LABS: BACTERIA,URINE TRACE /HPF
[2020-01-24 20:10] LABS: AMPHETAMINE SCREEN, URINE NEGATIVE (NEGATIVE); BARBITURATE SCREEN URINE NEGATIVE (NEGATIVE); BENZODIAZEPINES SCREEN URINE NEGATIVE (NEGATIVE); CANNABINOID SCREEN, URINE POSITIVE (NEGATIVE); COCAINE SCREEN URINE NEGATIVE (NEGATIVE); METHADONE STAT NEGATIVE (NEGATIVE); METHAMPHETAMINE SCREEN URINE S NEGATIVE (NEGATIVE); OPIATE SCREEN URINE NEGATIVE (NEGATIVE); OXYCODONE STAT NEGATIVE (NEGATIVE); PROPOXYPHENE STAT NEGATIVE (NEGATIVE); TRICYCLIC ANTIDEPRESSANTS SCRE POSITIVE (NEGATIVE)
--- OUTSIDE RECORDS SUMMARY | 2020-01-26 17:25 | XMS REPORT | Continuity of Care Document ---
Author Organization Unknown Address Unknown Phone Unavailable Allergies Active Description Code Type Severity Reaction Onset Reported/Identified Relationship to Patient Clinical Status Yes tramadol [id number] Drug Allergy Moderate N/A 07/27/2018 Yes amoxicillin [id number] Drug Aller gy Mild RASH 07/27/2018 Yes gabapentin [id number] Drug Allerg y Mild RASH 07/27/2018 Yes No Known Drug Allergies [id number] Drug Allergy Unknown N/A 07/27/2018 Yes erythromycin base [id number] Drug Allergy Unknown N/A 10/10/2019 Medications There is no data. 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 07/28/2018 JESSIKA CORDOBA DOI Ot I25.2 OLD MYOCARDIAL INFARCTION 07/28/2018 MARIELENA CORDOBA DO Ot K85.90 ACUTE PANCREATITIS WITHOUT NECROSIS OR I 07/28/2018 MARIELENA CORDOBA DO Ot Z79.82 USP (CURRENT) USE OF ASPIRIN 07/28/2018 MARIELENA CORDOBA DO Ot Z79.89 9 OTHER USP (CURRENT) DRUG THERAPY 07/28/2018 MARIELENA CORDOBA DO [...] Ot I25.11 0 ATHSCL HEART DISEASE OF [place] ART W 08/01/2018 MARIELENA CORDOBA DO Ot I25.2 OLD MYOCARDIAL INFARCTION 08/01/2018 MARIELENA CORDOBA DO Ot K85.90 ACUTE PANCREATITIS WITHOUT NECROSIS OR I 08/01/2018 MARIELENA CORDOBA DO Ot Z79.82 TEST OPERATOR (CURRENT) USE OF ASPIRIN 08/01/2018 MARIELENA CORDOBA DO Ot Z79.89 9 OTHER USP (CURRENT) DRUG THERAPY 08/01/2018 MARIELENA CORDOBA DO [...] TOBACCO SMO 08/02/2018 JESSE CASTILLOP Ot Z79.82 TEST OPERATOR (CURRENT) USE OF ASPIRIN 08/02/2018 JESSE CASTILLO HAT COPYIST Ot Z80.0 FAMILY HISTORY OF MALIGNANT NEOPLASM OF 08/02/2018 JESSE CASTILLOP Ot Z82.49 FAMILY HX OF ISCHEM HEART DIS AND OTH DI 08/02/2018 JESSE CASTILLOP Ot Z87.19 PERSONAL HISTORY OF OTHER DISEASES OF 08/02/2018 JESSE CASTILLOP Ot Z88.0 ALLERGY STATUS TO PENICILLIN 08/02/2018 JESSE CASTILLO HAT COPYIST Ot Z88.6 ALLERGY STATUS TO ANALGESIC AGENT STATUS 08/02/2018 JESSE CASTILLOP Ot Z88.8 ALLERGY STATUS TO OTH DRUG/MEDS/BIOL SUB 08/02/2018 JESSE CASTILLOP Ot Z95.5 PRESENCE OF CORONARY ANGIOPLASTY IMPLANT 08/02/2018 JESSE CASTILLOP Ot Z98.890 OTHER SPECIFIED POSTPROCEDURAL STATES 08/04/2018 JESSE CASTILLOP Ot E78.00 PURE HYPERCHOLESTEROLEMIA, UNSPECIFIED 08/04/2018 JESSE CASTILLO HAT COPYIST Ot G89.18 OTHER ACUTE POSTPROCEDURAL PAIN 08/04/2018 JONATHAN JESSE HAT COPYIST Ot I10 ESSENTIAL (PRIMARY) HYPERTENSION 08/04/2018 JESSE CASTILLO HAT COPYIST Ot J45.909 UNSPECIFIED ASTHMA, UNCOMPLICATED 08/04/2018 JESES CASTILLO HAT COPYIST Ot M79.631 PAIN IN RIGHT FOREARM 08/04/2018 JONATHAN JESSE PORRASP Ot Z77.22 CNTCT W AND EXPSR TO ENVIRON TOBACCO SMO 08/04/2018 JONATHAN JESSE HAT COPYIST Ot Z79.82 USP (CURRENT) USE OF ASPIRIN 08/04/2018 JESSE CASTILLO HAT COPYIST Ot Z80.0 FAMILY HISTORY OF MALIGNANT NEOPLASM OF 08/04/2018 JESSE CASTILLOP Ot Z82.49 FAMILY HX OF ISCHEM HEART DIS AND OTH DI 08/04/2018 JONATHAN JESSE HAT COPYIST Ot Z87.19 PERSONAL HISTORY OF OTHER DISEASES OF TH 08/04/2018 JESSE CASTILLO HAT COPYIST Ot Z88.0 ALLERGY STATUS TO PENICILLIN 08/04/2018 JONATHAN JESSE HAT COPYIST Ot Z88.6 ALLERGY STATUS TO ANALGESIC AGENT STATUS 08/04/2018 JONATHANJESSE HAT COPYIST Ot Z88.8 ALLERGY STATUS TO OT DRUG/MEDS/BIOL SUB 08/04/2018 JONATHAN JESSE HAT COPYIST Ot Z95.5 PRESENCE OF CORONARY ANGIOPLASTY IMPLANT 08/04/2018 JONATHAN JESSE HAT COPYIST Ot Z98.890 OTHER SPECIFIED POSTPROCEDURAL STATES 02/27/2019 [...] TOBACCO SMO 02/27/2019 BENNIE ROONEY Ot Z79.82 TEST OPERATOR (CURRENT) USE OF ASPIRIN 02/27/2019 BENNIE ROONEY [...] TOBACCO SMO 03/01/2019 BENNIE ROONEY Ot Z79.82 USP (CURRENT) USE OF ASPIRIN 03/01/2019 BENNIE ROONEY [...] MD Ot I25.10 ATHSCL HEART DISEASE OF [place] CORONARY 10/10/2019 NITESH PARIKH MD, Ot I25.2 [...] HABIT 10/10/2019 NITESH PARIKH MD, Ot Z79.82 TEST OPERATOR (CURRENT) USE OF ASPIRIN 10/10/2019 NITESH PARIKH [...] MD Ot I25.10 ATHSCL HEART DISEASE OF [place] CORONARY 10/12/2019 NITESH PARIKH MD, Ot I25.2 [...] HABIT 10/12/2019 NITESH PARIKH MD Ot Z79.82 TEST OPERATOR (CURRENT) USE OF ASPIRIN 10/12/2019 NITESH PARIKH [...] APRN Ot I25.10 ATHSCL HEART DISEASE OF [place] CORONARY 10/13/2019 KAYLA TO APRN Ot I25 .2 OLD MYOCARDIAL INFARCTION 10/13/2019 KAYLA TO APRN Ot J45.909 UNSPECIFIED ASTHMA, UNCOMPLICATED 10/13/2019 KAYLA TO APRN Ot M48.061 SPINAL STENOSIS, LUMBAR REGION WITHOUT N 10/13/2019 KAYLA TO APRN Ot M54 .9 DORSALGIA, UNSPECIFIED 10/13/2019 KAYLA TO APRN Ot Z77.22 CNTCT W AND EXPSR TO ENVIRON TOBACCO SMO 10/13/2019 KAYLA TO APRN Ot Z79.82 TEST OPERATOR (CURRENT) USE OF ASPIRIN 10/13/2019 KAYLA TO [...] PURE HYPERCHOLESTEROLEMIA, UNSPECIFIED 10/17/2019 JL RUCKER, NITESH Gee Ot G43.909 MIGRAINE, UNSP, NOT INTRACTABLE, WITHOUT 10/17/2019 JL RUCKER, NITESH Gee Ot I10 ESSENTIAL (PRIMARY) HYPERTENSION 10/17/2019 JL RUCKER, NITESH Gee Ot I25.10 ATHSCL HEART DISEASE OF [place] CORONARY 10/17/2019 NITESH PARIKH MD, Ot I25.2 OLD MYOCARDIAL INFARCTION 10/17/2019 NITESH PARIKH MD Ot J45.909 UNSPECIFIED ASTHMA, UNCOMPLICATED 10/17/2019 NITESH PARIKH MD Ot K40.90 UNIL INGUINAL HERNIA, W/O OBST OR GANGR, 10/17/2019 NITESH PARIKH MD, Ot M48.061 SPINAL STENOSIS, LUMBAR REGION WITHOUT N 10/17/2019 NITESH PARIKH MD Ot M54.5 LOW BACK PAIN 10/17/2019 NITESH PARIKH MD, Ot R10.84 GENERALIZED ABDOMINAL PAIN 10/17/2019 NITESH PARIKH MD, Ot R19.4 CHANGE IN BOWEL HABIT 10/17/2019 NITESH PARIKH MD, Ot Z79.82 TEST OPERATOR (CURRENT) USE OF ASPIRIN 10/17/2019 NITESH PARIKH [...] Z95.5 PRESENCE OF CORONARY ANGIOPLASTY IMPLANT 10/24/2019 OJ IYER Ot M47.816 SPONDYLOSIS W/O MYELOPATHY OR RADICULOPA 10/24/2019 JO IYER Ot M48.061 SPINAL STENOSIS, LUMBAR REGION WITHOUT N 10/24/2019 JO IYER Ot M51.36 OTHER INTERVERTEBRAL DISC DEGENERATION, 10/24/2019 JO IYER Ot M47.816 SPONDYLOSIS W/O MYELOPATHY OR RADICULOPA 10/24/2019 JO IYER Ot M48.061 SPINAL STENOSIS, LUMBAR REGION WITHOUT N 10/24/2019 JO IYER Ot M51.36 OTHER INTERVERTEBRAL DISC DEGENERATION, 10/31/2019 JO IYER Ot M47.816 SPONDYLOSIS W/O MYELOPATHY OR RADICULOPA 10/31/2019 JO IYER Ot M48.061 SPINAL STENOSIS, LUMBAR REGION WITHOUT N 10/31/2019 JO IYER Ot M51.36 OTHER INTERVERTEBRAL DISC DEGENERATION, 10/31/2019 JO IYER Ot M47.816 SPONDYLOSIS W/O MYELOPATHY OR RADICULOPA 10/31/2019 JO IYER Stefany Ot M48.061 SPINAL STENOSIS, LUMBAR REGION WITHOUT N 10/31/2019 JO IYER Ot M51.36 OTHER INTERVERTEBRAL DISC DEGENERATION, 11/19/2019 JAYCE RUBIO HAT COPYIST Ot E78.5 HYPERLIPIDEMIA, UNSPECIFIED 11/19/2019 JAYCE RUBIO HAT COPYIST Ot F32.9 MAJOR DEPRESSIVE DISORDER, SINGLE EPISOD 11/19/2019 JAYCE RUBIO L HAT COPYIST Ot F40.00 AGORAPHOBIA, UNSPECIFIED 11/19/2019 BAIJAYCE ALBARADO L HAT COPYIST Ot F41.9 ANXIETY DISORDER, UNSPECIFIED 11/19/2019 JAYCE RUBIO L HAT COPYIST Ot G89.29 OTHER CHRONIC PAIN 11/19/2019 JAYCE RUBIO L HAT COPYIST Ot I25.10 ATHSCL HEART DISEASE OF [place] CORONARY 11/19/2019 JAYCE RUBIO L HAT COPYIST Ot K21.9 GASTRO-ESOPHAGEAL REFLUX DISEASE WITHOUT 11/19/2019 JAYCE RUBIO L HAT COPYIST Ot M54.9 DORSALGIA, UNSPECIFIED 11/19/2019 JAYCE RUBIO L HAT COPYIST Ot Z79.82 TEST OPERATOR (CURRENT) USE OF ASPIRIN 11/19/2019 JAYCE RUBIO L HAT COPYIST Ot Z79.891 TEST OPERATOR (CURRENT) USE OF OPIATE ANALGE 11/19/2019 JAYCE RUBIO L HAT COPYIST Ot Z79.899 OTHER TEST OPERATOR (CURRENT) DRUG THERAPY 11/19/2019 JAYCE RUBIO L HAT COPYIST Ot Z82.49 FAMILY HX OF ISCHEM HEART DIS AND OTH DI 11/19/2019 JAYCE RUBIO L HAT COPYIST Ot Z88.1 ALLERGY STATUS TO OTHER ANTIBIOTIC AGENT 11/19/2019 KURTISJAYCE ALBARADO Celia HAT COPYIST Ot Z88.8 ALLERGY STATUS TO OTH DRUG/MEDS/BIOL SUB 11/27/2019 NITESH PARIKH MD Ot E78.00 PURE HYPERCHOLESTEROLEMIA, UNSPECIFIED 11/27/2019 NITESH PARIKH MD, Ot G43.909 MIGRAINE, UNSP, NOT INTRACTABLE, WITHOUT 11/27/2019 NITESH PARIKH MD, Ot I25.10 ATHSCL HEART DISEASE OF [place] CORONARY 11/27/2019 NITESH PARIKH MD, Ot J45.909 UNSPECIFIED ASTHMA, UNCOMPLICATED 11/27/2019 NITESH PARIKH MD, Ot K21.9 GASTRO-ESOPHAGEAL REFLUX DISEASE WITHOUT 11/27/2019 NITESH PARIKH MD, Ot M48.061 SPINAL STENOSIS, LUMBAR REGION WITHOUT N 11/27/2019 NITESH PARIKH MD, Ot M54.16 RADICULOPATHY, LUMBAR REGION 11/27/2019 NITESH PARIKH MD, Ot M54.5 LOW BACK PAIN 11/27/2019 NITESH PARIKH MD, Ot Z79.82 USP (CURRENT) USE OF ASPIRIN 11/27/2019 NITESH PARIKH MD, Ot Z80.8 FAMILY HISTORY OF MALIGNANT NEOPLASM OF 11/27/2019 NITESH PARIKH MD, Ot Z82.49 FAMILY HX OF ISCHEM HEART DIS AND OTH DI 11/27/2019 NITESH PARIKH MD, Ot Z87.442 PERSONAL HISTORY OF URINARY CALCULI 11/27/2019 NITESH PARIKH MD, Ot Z88.0 ALLERGY STATUS TO PENICILLIN 11/27/2019 NITESH PARIKH MD, Ot Z88.1 ALLERGY STATUS TO OTHER ANTIBIOTIC AGENT 11/27/2019 NITESH PARIKH MD, Ot Z88.5 ALLERGY STATUS TO NARCOTIC AGENT STATUS 11/27/2019 NITESH PARIKH MD, Ot Z95.5 PRESENCE OF CORONARY ANGIOPLASTY IMPLANT 11/27/2019 JO IYER Ot M47.816 SPONDYLOSIS W/O MYELOPATHY OR RADICULOPA 11/27/2019 JO IYER Ot M48.061 SPINAL STENOSIS, LUMBAR REGION WITHOUT N 11/27/2019 JO IYER Ot M51.36 OTHER INTERVERTEBRAL DISC DEGENERATION, 11/27/2019 JO IYER Ot M47.816 SPONDYLOSIS W/O MYELOPATHY OR RADICULOPA 11/27/2019 JO IYER Ot M48.061 SPINAL STENOSIS, LUMBAR REGION WITHOUT N 11/27/2019 JO IYER Ot M51.36 OTHER INTERVERTEBRAL DISC DEGENERATION, 11/30/2019 NITESH PARIKH MD, Ot E78.00 PURE HYPERCHOLESTEROLEMIA, UNSPECIFIED 11/30/2019 NITESH PARIKH MD, Ot G43.909 MIGRAINE, UNSP, NOT INTRACTABLE, WITHOUT 11/30/2019 NITESH PARIKH MD, Ot I25.10 ATHSCL HEART DISEASE OF [place] CORONARY 11/30/2019 NITESH PARIKH MD, Ot J45.909 UNSPECIFIED ASTHMA, UNCOMPLICATED 11/30/2019 NITESH PARIKH MD, Ot K21.9 GASTRO-ESOPHAGEAL REFLUX DISEASE WITHOUT 11/30/2019 NITESH PARIKH MD, Ot M48.061 SPINAL STENOSIS, LUMBAR REGION WITHOUT N 11/30/2019 NITESH PARIKH MD, Ot M54.16 RADICULOPATHY, LUMBAR REGION 11/30/2019 NITESH PARIKH MD, Ot M54.5 LOW BACK PAIN 11/30/2019 NITESH PARIKH MD, Ot Z79.82 TEST OPERATOR (CURRENT) USE OF ASPIRIN 11/30/2019 NITESH PARIKH MD, Ot Z80.8 FAMILY HISTORY OF MALIGNANT NEOPLASM OF 11/30/2019 NITESH PARIKH MD, Ot Z82.49 FAMILY HX OF ISCHEM HEART DIS AND OTH DI 11/30/2019 NITESH PARIKH MD, Ot Z87.442 PERSONAL HISTORY OF URINARY CALCULI 11/30/2019 NITESH PARIKH MD, Ot Z88.0 ALLERGY STATUS TO PENICILLIN 11/30/2019 NITESH PARIKH MD, Ot Z88.1 ALLERGY STATUS TO OTHER ANTIBIOTIC AGENT 11/30/2019 NITESH PARIKH MD, Ot Z88.5 ALLERGY STATUS TO NARCOTIC AGENT STATUS 11/30/2019 NITESH PARIKH MD, Ot Z95.5 PRESENCE OF CORONARY ANGIOPLASTY IMPLANT 12/06/2019 NITESH PARIKH MD, Ot E78.00 PURE HYPERCHOLESTEROLEMIA, UNSPECIFIED 12/06/2019 NITESH PARIKH MD, Ot G43.909 MIGRAINE, UNSP, NOT INTRACTABLE, WITHOUT 12/06/2019 NITESH PARIKH MD, Ot I25.10 ATHSCL HEART DISEASE OF [place] CORONARY 12/06/2019 NITESH PARIKH MD, Ot J45.909 UNSPECIFIED ASTHMA, UNCOMPLICATED 12/06/2019 NITESH PARIKH MD, Ot K21.9 GASTRO-ESOPHAGEAL REFLUX DISEASE WITHOUT 12/06/2019 NITESH PARIKH MD, Ot M48.061 SPINAL STENOSIS, LUMBAR REGION WITHOUT N 12/06/2019 NITESH PARIKH MD, Ot M54.16 RADICULOPATHY, LUMBAR REGION 12/06/2019 NITESH PARIKH MD, Ot M54.5 LOW BACK PAIN 12/06/2019 NITESH PARIKH MD, Ot Z79.82 USP (CURRENT) USE OF ASPIRIN 12/06/2019 NITESH PARIKH MD, Ot Z80.8 FAMILY HISTORY OF MALIGNANT NEOPLASM OF 12/06/2019 NITESH PARIKH MD, Ot Z82.49 FAMILY HX OF ISCHEM HEART DIS AND OTH DI 12/06/2019 NITESH PARIKH MD, Ot Z87.442 PERSONAL HISTORY OF URINARY CALCULI 12/06/2019 NITESH PARIKH MD, Ot Z88.0 ALLERGY STATUS TO PENICILLIN 12/06/2019 NITESH PARIKH MD, Ot Z88.1 ALLERGY STATUS TO OTHER ANTIBIOTIC AGENT 12/06/2019 NITESH PARIKH MD, Ot Z88.5 ALLERGY STATUS TO NARCOTIC AGENT STATUS 12/06/2019 NITESH PARIKH MD, Ot Z95.5 PRESENCE OF CORONARY ANGIOPLASTY IMPLANT 12/31/2019 JO IYER Ot M47.816 SPONDYLOSIS W/O MYELOPATHY OR RADICULOPA 12/31/2019 RAYSHAWN MOODY, JO Mccall Ot M48.061 SPINAL STENOSIS, LUMBAR REGION WITHOUT N 12/31/2019 RAYSHAWN MOODY, JO Mccall Ot M51.36 OTHER INTERVERTEBRAL DISC DEGENERATION, 01/24/2020 RAYSHAWN MOODY, JO Mccall Ot M47.816 SPONDYLOSIS W/O MYELOPATHY OR RADICULOPA 01/24/2020 CONNIEA HEIDY, JO Mccall Ot M48.061 SPINAL STENOSIS, LUMBAR REGION WITHOUT N 01/24/2020 RAYSHAWN MOODY, JO Mccall Ot M51.36 OTHER INTERVERTEBRAL DISC DEGENERATION, 01/25/2020 RAYSHAWN MOODY, JO Mccall Ot M47.816 SPONDYLOSIS W/O MYELOPATHY OR RADICULOPA 01/25/2020 RAYSHAWN MOODY, JO Mccall Ot M48.061 SPINAL STENOSIS, LUMBAR REGION WITHOUT N 01/25/2020 CONNIEA HEIDY, JO Mccall Ot M51.36 OTHER INTERVERTEBRAL DISC [...] by westergren method 9 mm 0- 15 PDM - 09 PANEL (PROFILE 1) - 10/30/19 09 :50 Prescribed Drug 1 Hydrocodone NRG Creatinine 209.1 mg/dL > or = 20.0 pH 5.7 4.5-9.0 Oxidant NEGATIVE mcg/mL <200 Amphetamines NEGATIVE ng/mL <500 medMATCH Amphetamines CONSISTENT NRG Benzodiazepines NEGATIVE ng/mL <100 medMATCH Benzodiazepines CONSISTENT NRG Marijuana Metabolite POSITIVE ng/mL <20 Cocaine Metabolite NEGATIVE ng/mL <150 medMATCH Cocaine Metab CONSISTENT NRG Opiates POSITIVE ng/mL <100 Oxycodone NEGATIVE ng/mL <100 medMATCH Oxycodone CONSISTENT NRG COMMENT NRG Codeine NEGATIVE ng/mL <50 medMATCH Codeine CONSISTENT NRG Hydrocodone 7146 ng/mL <50 medMATCH Hydrocodone CONSISTENT NRG Hydromorphone 2923 ng/mL <50 medMATCH Hydromorphone CONSISTENT NRG Morphine NEGATIVE ng/mL <50 medMATCH Morphine CONSISTENT NRG Norhydrocodone 5237 ng/mL <50 medMATCH Norhydrocodone CONSISTENT NRG Marijuana Metabolite 28 ng/mL <5 medMATCH Marijuana Metab INCONSISTENT N RG Barbiturates NEGATIVE ng/mL <300 medMATCH Barbiturates CONSISTENT NRG Methadone Metabolite NEGATIVE ng/mL <100 medMATCH Methadone Metab CONSISTENT NRG Phencyclidine NEGATIVE ng/mL <25 medMATCH Phencyclidine CONSISTENT NRG PT panel in platelet poor plasma by coag ulation assay - 11/19/19 08:50 Prothrombin time (PT) in platelet poor plasma by coagu lation assay 12.4 s 12.2-14.7 INR in platelet poor plasma or blood by coagulation as say 0.9 0.8-1.4 Activated partial thromboplastin time (a PTT) in platelet poor plasma bycoagulation assay - 11/19/19 08:50 Activated partial thromboplastin time (a PTT) in platelet poor plasma bycoagulation assay 28 s 24-35 Comprehensive metabolic panel - 11/19/19 08:50 Serum or plasma sodium measurement (moles/volume) 140 mmol/L 135-145 Serum or plasma potassium measurement (moles/volume) 4.1 mmol/L 3.6-5.0 Serum or plasma chloride measurement (moles/volume) 108 mmol/L 98-107 Carbon dioxide 21 mmol/L 21-32 Serum or plasma anion gap determination (moles/volume) 11 mmol/L 5-14 Serum or plasma urea nitrogen measurement (mass/volume ) 21 mg/dL 7-18 Serum or plasma creatinine measurement (mass/volume) 0.97 mg/dL 0.60-1.30 Serum or plasma urea nitrogen/creatinine mass ratio 22 NRG Serum or plasma creatinine measurement w ith calculation of estimated glomerular filtration rate > NRG Serum or plasma glucose measurement (mass/volume) 107 mg/dL 70-105 Serum or plasma calcium measurement (mass/volume) 9.4 mg/dL 8.5-10.1 Serum or plasma total bilirubin measurement (mass/volu me) 0.3 mg/dL 0.1-1.0 Serum or plasma alkaline phosphatase lauren surement (enzymatic activity/volume) 64 U/L 40-136 Serum or plasma aspartate aminotransfera se measurement (enzymatic activity/volume) 24 U/L 5-34 Serum or plasma alanine aminotransferase measurement (enzymatic activity/volume) 41 U/L 0-55 Serum or plasma protein measurement (mass/volume) 7.0 g/dL 6.4-8.2 Serum or plasma albumin measurement (mass/volume) 4.0 g/dL 3.2-4.5 CALCIUM CORRECTED 9.4 mg/dL 8.5-10.1 Lipid 1996 panel - 11/19/19 08:50 Serum or plasma triglyceride measurement (mass/volume) 131 mg/dL <150 Serum or plasma cholesterol measurement (mass/volume) 133 mg/dL < 200 Serum or plasma cholesterol in HDL measurement (mass/v olume) 34 mg/dL 40-60 Cholesterol in LDL [mass/volume] in serum or plasma by direct assay 91 mg/dL 1-129 Serum or plasma cholesterol in VLDL measurement (mass/ volume) 26 mg/dL 5-40 Methicillin resistant Staphylococcus aur eus (MRSA) screening culture - 11/19/19 08:50 Methicillin resistant Staphylococcus aureus (MRSA) scr eening culture NEG NRG Complete urinalysis with reflex to cultu re - 01/24/20 19:06 Urine color determination YELLOW NRG Urine clarity determination CLEAR NR G Urine pH measurement by test strip 6.0 5-9 Specific gravity of urine by test [...] in urine sediment by light microsco py TRACE NRG Crystals detection in urine sediment by light microsco py NONE NRG Casts detection in urine sediment by light microscopy NONE NRG Mucus detection in urine sediment by light microscopy NEGATIVE NRG Complete urinalysis with reflex to culture NO NRG Urine drug screening test - 01/24/20 19: 06 Urine phencyclidine detection by screening method NEGATIVE NEGATIVE Urine benzodiazepines detection by screening method NEGATIVE NEGATIVE Urine cocaine detection NEGATIVE NEGATI VE Urine amphetamines detection by screening method N EGATIVE NEGATIVE Urine methamphetamine detection by screening method NEGATIVE NEGATIVE Urine cannabinoids detection by screening method P OSITIVE NEGATIVE Urine opiates detection by screening method NEGATI VE NEGATIVE Urine barbiturates detection NEGATIVE N EGATIVE Screening urine tricyclic antidepressants detection POSITIVE NEGATIVE Urine methadone detection by screening method NEGA TIVE NEGATIVE Urine oxycodone detection NEGATIVE NEGA TIVE Urine propoxyphene detection NEGATIVE N EGATIVE Encounters ACCT No. Visit Date/Time Discharge Status Pt. Type Provider Facility Loc./Unit Complaint [id number] 10/31/2019 10:30:00 10/31/2019 23:59: 59 CLS Outpatient MAGED RUCKER, JO MOCCASIN [facility] [id number] 10/30/2019 09:20:00 Document Registration [id number] 09/21/2019 09:40:00 Document Registration [id number] 01/24/2020 18:00:00 19:48:00 DIS Emergency AURELIANO ALFARO DO [facility] ER PAIN IN BACK [id number] 12/31/2019 09:20:00 23:59:59 CLS Preadmit DORI RUCKER, HAMZAH Lorenzo (DDU) [facility] RT ASTHMA [id number] 11/26/2019 22:29:00 00:23:00 DIS Emergency JL RUCKER, NITESH Gee [facility] ER LOWER L SIDE BA CK PAIN [id number] 11/19/2019 08:02:00 15:00:00 DIS Outpatient JAYCE RUBIO [facility] CATH CAD,ANGINA [id number] 10/22/2019 08:29:00 23:59:59 CLS Outpatient JO IYER [facility] RAD SPINAL STENOSIS [id number] 10/13/2019 18:11:00 19:30:00 DIS Emergency KAYLA TO APRN [facility] ER BACK PAIN [id number] 10/10/2019 17:40:00 20:40:00 DIS Emergency JL RUCKER, NITESH Gee [facility] ER POSS KIDNEY STO NE [id number] 02/27/2019 10:37:00 019 12:25:00 DIS Emergency BENNIE ROONEY [facility] ER FINGER LAC [id number] 08/02/2018 10:26:00 018 13:15:00 DIS Emergency JESSE CASTILLO [facility] ER R ARM PAIN AFTER HEART CATH [id number] 07/27/2018 16:42:00 018 17:25:00 DIS Outpatient MARIELENA CORDOBA DO [facility] CATH CHEST PAIN, PANCREATITI S
== END 2020-01-24 19:48 | disposition home or self-care (01) ==
LOC: EDUNIT# 17:58 → ER 18:00
DX: M54.16 Radiculopathy, lumbar region (principal); G89.29 Other chronic pain; J45.909 Unspecified asthma, uncomplicated; I10 Essential (primary) hypertension; E78.00 Pure hypercholesterolemia, unspecified; I25.2 Old myocardial infarction; I25.10 Atherosclerotic heart disease of native coronary artery without angina pectoris; K21.9 Gastro-esophageal reflux disease without esophagitis; Z88.5 Allergy status to narcotic agent; Z88.0 Allergy status to penicillin; Z95.5 Presence of coronary angioplasty implant and graft; Z79.82 Long term (current) use of aspirin; Z82.49 Family history of ischemic heart disease and other diseases of the circulatory system; Z80.8 Family history of malignant neoplasm of other organs or systems
CPT/HCPCS: 80306; 81000; 99284

== ENCOUNTER 2020-10-11 13:46 | Inpatient (IN) | payer SELFPAY ==
[~2020-10-11] VITALS: Ht 167.6 cm; Wt 103.5 kg
[~2020-10-11 13:46] MED LIST changes: +ASPI-1238 PO; -ASPI-983 PO; +METH4TAB PO
[2020-10-11] MEDS ORDERED: morphine INJ 10 MG/ML 1ML (SYR OR VIAL) IV STA (14:01)
[2020-10-11] MEDS ORDERED: KETOROLAC 30 MG/ML VIAL IVP STA (14:01)
--- NOTE | 2020-10-11 14:11 | ED Chest Pain ---
General Stated Complaint: CP Source: patient Exam Limitations: no limitations History of Present Illness Date Seen by Provider: Oct 11, 2020 Time Seen by Provider: 13:57 Initial Comments Here with report of central chest pain that is nonradiating and feels like when he had his heart attack the first time. States that he has had 3 of these and has had stents on 2 occasions. Last one with stents was in 2014. Reports sweating and nausea as well as diaphoresis. He was apparently taking a shower at the onset of symptoms. EMS was summoned. They did give aspirin 324 mg p.o. as well as nitroglycerin sublingual. Nitroglycerin did not change the pain. 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: Yes NTG SL INSTRUCTIONAL SUPERVISOR: Yes Associated Symptoms: No abdominal pain, No back pain; diaphoresis; No fever/ch ills; nausea/vomiting; No shortness of breath, No weakness Allergies and Home Medications Allergies Coded Allergies: tramadol (Verified Allergy, Intermediate, 07/27/18) SEIZURES amoxicillin (Verified Allergy, Mild, RASH, 07/27/18) erythromycin base (Verified Allergy, Unknown, 10/10/19) Home Medications Acetaminophen with Codeine 1 Each Tablet, 2 EACH PO Q8H PRN for PAIN-MODERATE (5-7), (Reported) Aspirin 81 Mg Tablet.dr, 81 MG PO DAILY, (Reported) Atorvastatin Calcium 10 Mg Tablet, 10 MG PO HS Prescribed by: Stefany GLOVER on 11/19/19 1408 Famotidine 20 Mg Tablet, 20-40 MG PO HS PRN for HEARTBURN, (Reported) Gabapentin 300 Mg Capsule, 300 MG PO BID, (Reported) Hydrocodone Bit/Acetaminophen 1 Each Tablet, 1 EACH PO Q4H PRN for PAIN-MODERATE Prescribed by: NITESH GARCÍA on 11/26/19 2354 Lisinopril 5 Mg Tablet, 5 MG PO DAILY Prescribed by: Stefany GLOVER on 11/19/19 1410 Methylprednisolone 4 Mg Tab.ds.pk, 4 MG PO UD PER DOSE PACK INSTRUCTIONS Prescribed by: AURELIANO ALFARO on 01/24/20 1919 Metoprolol Succinate 25 Mg Tab.er.24h, 25 MG PO DAILY Prescribed by: Stefany GLOVER on 11/19/19 1411 Naproxen 500 Mg Tablet., 500 MG PO BID, (Reported) Patient Home Medication List Home Medication List Reviewed: Yes Review of Systems Review of Systems Constitutional: see HPI; No chills, No fever EENTM: No Nose Congestion, No Throat Pain Respiratory: Denies Cough, Denies Shortness of Air Cardiovascular: Chest Pain; Denies Edema Gastrointestinal: Denies Diarrhea; Nausea; Denies Vomiting Genitourinary: No Symptoms Reported Musculoskeletal: no symptoms reported Skin: no symptoms reported Psychiatric/Neurological: No Symptoms Reported All Other Systems Reviewed Negative Unless Noted: Yes Past Yomsevc-Krrqno-Rehloo Hx Past Med/Social Hx: Reviewed Nursing Past Med/Soc Hx Patient Social History Alcohol Use: Denies Use Recreational Drug Use: No Drug of Choice: SMOKED METH AND THC Smoking Status: Never a Smoker Type Used: Smokeless Tobacco 2nd Hand Smoke Exposure: No Recent Hopitalizations: No Immunizations Up To Date Tetanus Booster (TDap): Less than 5yrs Seasonal Allergies Seasonal Allergies: No Past Medical History Surgeries: Yes (SEE BELOW) Cardiac, Coronary Stent, Orthopedic Respiratory: Yes (DOES NOT HAVE AN INHALER) Asthma Cardiac: Yes (CLAIMS TX X 2--STENT IN 2007, AND STENT IN STENT 2014) Coronary Artery Disease, Heart Attack, Heart Murmur, High Cholesterol, Hypertension, Irregular Heartbeat Neurological: Yes (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) Headaches /Migraines Genitourinary: Yes Kidney Stones Gastrointestinal: Yes Gastroesophageal Reflux Musculoskeletal: Yes (lumbar spinal stenosis and disc bulging) Degenerate Disk Disease, Chronic Back Pain Endocrine: No HEENT: No Cancer: No Psychosocial: No Integumentary: No Blood Disorders: No Family Medical History Reviewed Nursing Family Hx Cardiovascular disease 19 FATHER 19 MOTHER FH: CHF (congestive heart failure) 19 FATHER FH: throat cancer 19 MOTHER PSH: -CARDIAC CATHS WITH STENT IN 2007, AND ANOTHER STENT ( IN PREVIOUS STENT) IN 2014 -KINDEY STONE BASKET REMOVAL X 2, AND LITHOTRIPSY X 2 -BILATERAL KNEE SCOPES--RIGHT KNEE X 1 -1993, LEFT KNEE X 2--2006, 2014 Physical Exam Vital Signs Vital Signs - First Documented 10/11/20 10/11/20 14:37 17:15 Temp 36.6 Pulse 65 Resp 20 B/P (MAP) 129/79 (96) Pulse Ox 97 Capillary Refill : Height, Weight, BMI Height: 5'6.00" Weight: 220lbs. 13.4oz. 99.545889re; 36.00 BMI Method:Stated General Appearance: No Apparent Distress, WD/WN HEENT: PERRL/EOMI, Pharynx Normal Neck: Non Tender, Supple Respiratory: Lungs Clear, Normal Breath Sounds, Other (Tender to anterior chest wall left external) Cardiovascular: Regular Rate, Rhythm, No Murmur Gastrointestinal: Non Tender, Soft Extremity: Normal Range of Motion, Non Tender Neurologic/Psychiatric: Alert, Oriented x3 Skin: Normal Color, Warm/Dry Progress/Results/Core Measures Results/Orders Lab Results Laboratory Tests Test 10/11/20 14:10 10/11/20 16:30 Range/Units White Blood Count 7.6 4.3-11.0 10^3/uL Red Blood Count 4.43 4.30-5.52 10^6/uL Hemoglobin 13.7 13.3-17.7 g/dL Hematocrit 41 40-54 % Mean Corpuscular Volume 93 80-99 fL Mean Corpuscular Hemoglobin 31 25-34 pg Mean Corpuscular Hemoglobin Concent 33 32-36 g/dL Red Cell Distribution Width 11.8 10.0-14.5 % Platelet Count 338 130-400 10^3/uL Mean Platelet Volume 9.8 9.0-12.2 fL Immature Granulocyte % (Auto) 0 % Neutrophils (%) (Auto) 57 42-75 % Lymphocytes (%) (Auto) 30 12-44 % Monocytes (%) (Auto) 8 0-12 % Eosinophils (%) (Auto) 4 0-10 % Basophils (%) (Auto) 1 0-10 % Neutrophils # (Auto) 4.3 1.8-7.8 10^3/uL Lymphocytes # (Auto) 2.3 1.0-4.0 10^3/uL Monocytes # (Auto) 0.6 0.0-1.0 10^3/uL Eosinophils # (Auto) 0.3 0.0-0.3 10^3/uL Basophils # (Auto) 0.1 0.0-0.1 10^3/uL Immature Granulocyte # (Auto) 0.0 0.0-0.1 10^3/uL Prothrombin Time 13.1 12.2-14.7 SEC INR Comment 1.0 0.8-1.4 Activated Partial Thromboplast Time 20 L 24-35 SEC D-Dimer < 0.27 0.00-0.49 UG/ML Sodium Level 139 135-145 MMOL/L Potassium Level 4.1 3.6-5.0 MMOL/L Chloride Level 107 98-107 MMOL/L Carbon Dioxide Level 21 21-32 MMOL/L Anion Gap 11 5-14 MMOL/L Blood Urea Nitrogen 17 7-18 MG/DL Creatinine 1.14 0.60-1.30 MG/DL Estimat Glomerular Filtration Rate > 60 BUN/Creatinine Ratio 15 Glucose Level 129 H 70-105 MG/DL Calcium Level 8.2 L 8.5-10.1 MG/DL Corrected Calcium 8.4 L 8.5-10.1 MG/DL Magnesium Level 2.2 1.6-2.4 MG/DL Total Bilirubin 0.5 0.1-1.0 MG/DL Aspartate Amino Transf (AST/SGOT) 21 5-34 U/L Alanine Aminotransferase (ALT/SGPT) 38 0-55 U/L Alkaline Phosphatase 76 40-136 U/L Myoglobin 16.9 10.0-92.0 NG/ML Troponin I < 0.028 0.276 H <0.028 NG/ML C-Reactive Protein High Sensitivity 0.26 0.00-0.50 MG/DL Total Protein 6.8 6.4-8.2 GM/DL Albumin 3.8 3.2-4.5 GM/DL Lipase 32 8-78 U/L Procalcitonin 0.08 <0.10 NG/ML Coronavirus 2019 (SPENSER) Negative Negative My Orders Orders - MAHAMED REILLY MD Cbc With Automated Diff (10/11/20 14:01) Magnesium (10/11/20 14:01) Chest 1 View, Ap/Pa Only (10/11/20 14:01) Ekg Tracing (10/11/20 14:) Comprehensive Metabolic Panel (10/11/20 14:01) Myoglobin Serum (10/11/20 14:01) Protime With Inr (10/11/20 14:01) Partial Thromboplastin Time (10/11/20 14:01) O2 (10/11/20 14:) Monitor-Rhythm Ecg Trace Only (10/11/20 14:01) Lipid Panel (10/12/20 06:00) Ed Iv/Invasive Line Start (10/11/20 14:01) Fibrin Degradation Products (10/11/20 14:01) Troponin I (10/11/20 14:01) Morphine Injection (Morphine Injection (10/11/20 14:01) Procalcitonin (Pct) (10/11/20 14:01) Hs C Reactive Protein (10/11/20 14:01) Covid 19 Inhouse Test (10/11/20 14:01) Ketorolac Injection (Toradol Injection) (10/11/20 14:01) Ondansetron Injection (Zofran Injectio (10/11/20 14:15) Lidocaine 2% Viscous 15 Ml (Xylocaine Vi (10/11/20 15:45) Antacid Suspension (Mylanta Suspension (10/11/20 15:45) Pantoprazole Injection (Protonix Injecti (10/11/20 15:45) Lipase (10/11/20 15:32) Troponin I (10/11/20 16:25) Enoxaparin Injection (Lovenox Injection) (10/11/20 17:30) Enoxaparin Injection (Lovenox Injection) (10/11/20 17:24) Medications Given in ED Current Medications Medications Dose Ordered Sig/Faisal Route Start Time Stop Time Status Last Admin Dose Admin Al Hydrox/Mg Hydrox/Simethicone 30 ml ONCE ONCE PO 10/11/20 15:45 10/11/20 15:46 DC 10/11/20 15:49 30 ML Enoxaparin Sodium 100 mg ONCE ONCE SC 10/11/20 17:30 10/11/20 17:31 10/11/20 17:29 100 MG Lidocaine HCl 15 ml ONCE ONCE PO 10/11/20 15:45 10/11/20 15:46 DC 10/11/20 15:49 15 ML Ondansetron HCl 4 mg ONCE ONCE IVP 10/11/20 14:15 10/11/20 14:16 DC 10/11/20 14:24 4 MG Pantoprazole 40 mg ONCE ONCE IV 10/11/20 15:45 10/11/20 15:46 DC 10/11/20 15:48 40 MG Vital Signs/I&O 10/11/20 10/11/20 14:37 17:15 Temp 36.6 36.6 Pulse 65 70 Resp 20 16 B/P (MAP) 129/79 (96) 145/89 Pulse Ox 97 Progress Progress Note : Progress Note Seen and evaluated. IV, labs, EKG and chest x-ray ordered. Aspirin and nitroglycerin complete from EMS. Morphine 4 mg IV and Zofran 4 mg IV ordered for pain and nausea. COVID-19 rapid screening ordered. Monitor patient. 1719: We have repeated troponin at 3-hour steffany and it is elevated. Concerning for non-STEMI. I discussed the case with Dr. Aguilar who accepts patient in consult and requested n.p.o. after midnight. He also requests Lovenox 1 mg/kg dosing now. I discussed the case with Dr. Mello and she accepts patient for admission, observation status. Findings and concerns discussed with patient who agrees with plan. Initial ECG Impression Date: Oct 11, 2020 Initial ECG Impression Time: 14:00 Initial ECG Rate: 62 Initial ECG Rhythm: Normal Sinus Initial ECG Impression: Normal Comment Sinus rhythm with normal axis. No evidence of ST elevation TX. Similar to previous of 11/19/[address] elevation or depression. Interpreted by me. Diagnostic Imaging Diagonstic Imaging: Xray Plain Films/CT/US/NM/MRI: chest Comments [facility], [place] NAME: ANNALISA OLIVIER [facility] REC#: [id number] PT STATUS: REG ER : 1980 PHYSICIAN: MAHAMED REILLY MD ADMIT DATE: 10/11/20/ER Draft Date of Exam:10/11/20 CHEST 1 VIEW, AP/PA ONLY EXAMINATION: Chest 1 view. HISTORY: Chest pain. COMPARISON: 07/27/2018. FINDINGS: There is mild right base atelectasis. Otherwise, the lungs are clear without edema or pneumonia. No pleural effusion or pneumothorax. Heart size is normal. IMPRESSION: Mild atelectasis, otherwise clear lungs. Dictated on workstation # [id number] Dict: 10/11/20 1453 Trans: 10/11/20 1457 [facility] [id number] Interpreted by: SUELLEN RAMOS MD Electronically signed by: Departure Communication (Admissions) Time/Spoke to Admitting Phy: 17:18 Time/Spoke to Consulting Phy: 17:14 Impression Primary Impression: Non-ST elevation TX (NSTEMI) Disposition: 09 ADMITTED INPATIENT Condition: Stable Admissions Decision to Admit Reason: Admit from ER (General) Decision to Admit/Date: Oct 11, 2020 Time/Decision to Admit Time: 17:14 Departure-Patient Inst. Referrals: JO LYNNE MD (PCP/Family) Primary Care Physician MAHAMED REILLY MD Oct 11, 2020 14:11
[2020-10-11] MEDS ORDERED: ONDANSETRON 4 MG/2 ML (SDV) Z0FRAN IVP ONE (14:15)
[2020-10-11 14:22] LABS: BASOPHILS # (AUTO) 0.1 10^3/uL (0.0-0.1); BASOPHILS % (AUTO) 1 % (0-10); EOSINOPHILS # (AUTO) 0.3 10^3/uL (0.0-0.3); EOSINOPHILS % (AUTO) 4 % (0-10); HEMATOCRIT 41 % (40-54); HEMOGLOBIN 13.7 g/dL (13.3-17.7); LYMPHOCYTES # (AUTO) 2.3 10^3/uL (1.0-4.0); LYMPHOCYTES % (AUTO) 30 % (12-44); MEAN CORPUSCULAR HEMOGLOBIN 31 pg (25-34); MEAN CORPUSCULAR HGB CONC 33 g/dL (32-36); MEAN CORPUSCULAR VOLUME 93 fL (80-99); MEAN PLATELET VOLUME 9.8 fL (9.0-12.2); MONOCYTES # (AUTO) 0.6 10^3/uL (0.0-1.0); MONOCYTES % (AUTO) 8 % (0-12); NEUTROPHILS # (AUTO) 4.3 10^3/uL (1.8-7.8); NEUTROPHILS % (AUTO) 57 % (42-75); PLATELET COUNT 338 10^3/uL (130-400); WHITE BLOOD COUNT 7.6 10^3/uL (4.3-11.0)
[2020-10-11 14:36] LABS: ALBUMIN 3.8 GM/DL (3.2-4.5); CHLORIDE 107 MMOL/L (98-107); POTASSIUM 4.1 MMOL/L (3.6-5.0); SODIUM 139 MMOL/L (135-145)
[2020-10-11 14:37] LABS: CALCIUM 8.2 MG/DL (8.5-10.1); PROTHROMBIN TIME PATIENT 13.1 SEC (12.2-14.7)
[2020-10-11 14:38] LABS: GLUCOSE 129 MG/DL (70-105); TOTAL PROTEIN 6.8 GM/DL (6.4-8.2)
[2020-10-11 14:39] LABS: CARBON DIOXIDE 21 MMOL/L (21-32)
[2020-10-11 14:40] LABS: BILIRUBIN,TOTAL 0.5 MG/DL (0.1-1.0)
[2020-10-11 14:42] LABS: ALKALINE PHOSPHATASE 76 U/L (40-136); CREATININE SERUM 1.14 MG/DL (0.60-1.30); GFR ESTIMATED > 60
[2020-10-11 14:43] LABS: BUN/CREATININE RATIO 15
[2020-10-11 14:45] LABS: ALANINE AMINOTRANSFERASE 38 U/L (0-55); MAGNESIUM 2.2 MG/DL (1.6-2.4)
--- NOTE | 2020-10-11 14:57 | Diagnostic Imaging Report ---
EXAMINATION: Chest 1 view. HISTORY: Chest pain. COMPARISON: 07/27/2018. FINDINGS: There is mild right base atelectasis. Otherwise, the lungs are clear without edema or pneumonia. No pleural effusion or pneumothorax. Heart size is normal. IMPRESSION: Mild atelectasis, otherwise clear lungs. Dictated by: Dictated on workstation # [id number]
[2020-10-11] MEDS ORDERED: PANTOPRAZOLE 40 MG (PROTONIX) VIAL IV ONE (15:45)
[2020-10-11] MEDS ORDERED: ANTACID SUSP 30 ML UDC (MYLANTA) PO ONE (15:45)
[2020-10-11] MEDS ORDERED: LIDOCAINE 2% VISCOUS 15 ML UDC PO ONE (15:45)
[2020-10-11] MEDS ORDERED: ENOXAPARIN 100 MG/1 ML (LOVENOX) SYR ONE (17:24)
[2020-10-11] MEDS ORDERED: ENOXAPARIN 100 MG/1 ML (LOVENOX) SYR SC ONE (17:30)
[2020-10-11 17:51] VITALS: BP 133/83
[2020-10-11] MEDS ORDERED: HYDROcodone/APAP 5 MG/325 MG (LORTAB) TAB PO PRN (20:00)
[2020-10-11] MEDS ORDERED: diphenhydrAMINE 25 MG TAB (BENADRYL) PO PRN (20:00)
[2020-10-11] MEDS ORDERED: DOCUSATE SODIUM 100 MG (COLACE) CAP PO PRN (20:00)
[2020-10-11] MEDS ORDERED: ACETAMINOPHEN 500 MG TAB (TYLENOL) PO PRN (20:00)
[2020-10-11] MEDS ORDERED: CALCIUM CARBONATE 500 MG (TUMS) TAB.CHEW PO PRN (20:00)
[2020-10-11] MEDS ORDERED: ONDANSETRON 4 MG/2 ML (SDV) Z0FRAN IVP PRN (20:00)
[2020-10-11] MEDS ORDERED: ALPRAZolam 0.25 MG (XANAX) TAB PO PRN (20:00)
[2020-10-11] MEDS ORDERED: MELATONIN 3 MG TABLET PO PRN (20:00)
[2020-10-11] MEDS ORDERED: ALPRAZolam 0.25 MG (XANAX) TAB ONE (20:08)
[2020-10-11] MEDS ORDERED: morphine INJ 4 MG/ML 1 ML (VIAL/SYRINGE) ONE (20:08)
[2020-10-11] MEDS ORDERED: ANTACID SUSP 30 ML UDC (MYLANTA) ONE (20:09)
[2020-10-11] MEDS ORDERED: NS IV 1000 ML 1,000 ML ONE (20:09)
[2020-10-11] MEDS: SENNA W/DOCUSATE (SENOKOT S) TABLET PO SCH (21:29)
[2020-10-11] MEDS ORDERED: NITROGLYCERIN 0.4 MG SL TABS BTL 25'S SL PRN (21:45)
[2020-10-11] MEDS ORDERED: morphine INJ 4 MG/ML 1 ML (VIAL/SYRINGE) IV PRN (22:00)
[2020-10-11] MEDS: NS IV 1000 ML 1,000 ML IV SCH (22:04)
[2020-10-11] MEDS: ASPIRIN E.C. 81 MG (ECOTRIN) TAB PO SCH (23:01)
[2020-10-12] MEDS: morphine INJ 10 MG/ML 1ML (SYR OR VIAL) IVP PRN ×3 (02:09→10:47)
[2020-10-12 03:36] LABS: BASOPHILS % (AUTO) 0 % (0-10); EOSINOPHILS # (AUTO) 0.3 10^3/uL (0.0-0.3); EOSINOPHILS % (AUTO) 4 % (0-10); HEMATOCRIT 38 % (40-54); HEMOGLOBIN 12.4 g/dL (13.3-17.7); LYMPHOCYTES % (AUTO) 27 % (12-44); MEAN CORPUSCULAR HEMOGLOBIN 31 pg (25-34); MEAN CORPUSCULAR HGB CONC 33 g/dL (32-36); MEAN CORPUSCULAR VOLUME 94 fL (80-99); MONOCYTES # (AUTO) 0.6 10^3/uL (0.0-1.0); MONOCYTES % (AUTO) 9 % (0-12); NEUTROPHILS # (AUTO) 4.3 10^3/uL (1.8-7.8); NEUTROPHILS % (AUTO) 60 % (42-75); PLATELET COUNT 276 10^3/uL (130-400); WHITE BLOOD COUNT 7.2 10^3/uL (4.3-11.0)
[2020-10-12 04:08] LABS: ALBUMIN 3.3 GM/DL (3.2-4.5); CHLORIDE 109 MMOL/L (98-107); POTASSIUM 3.9 MMOL/L (3.6-5.0); SODIUM 141 MMOL/L (135-145)
[2020-10-12 04:09] LABS: CALCIUM 7.7 MG/DL (8.5-10.1)
[2020-10-12 04:10] LABS: TRIGLYCERIDES 96 MG/DL (<150); VLDL CHOLESTEROL 19 MG/DL (5-40)
[2020-10-12 04:11] LABS: GLUCOSE 122 MG/DL (70-105); TOTAL PROTEIN 5.8 GM/DL (6.4-8.2)
[2020-10-12 04:12] LABS: CARBON DIOXIDE 21 MMOL/L (21-32)
[2020-10-12 04:13] LABS: BILIRUBIN,TOTAL 0.3 MG/DL (0.1-1.0)
[2020-10-12 04:14] LABS: ALKALINE PHOSPHATASE 73 U/L (40-136); CREATININE SERUM 0.94 MG/DL (0.60-1.30); GFR ESTIMATED > 60
[2020-10-12 04:15] LABS: CHOLESTEROL 95 MG/DL (< 200)
[2020-10-12 04:16] LABS: BUN/CREATININE RATIO 13
[2020-10-12 04:17] LABS: HDL CHOLESTEROL 29 MG/DL (40-60)
[2020-10-12 04:18] LABS: ALANINE AMINOTRANSFERASE 33 U/L (0-55)
[2020-10-12] MEDS: NS IV 1000 ML 1,000 ML IV SCH (05:07)
--- NOTE | 2020-10-12 07:14 | Consultation-Cardiology ---
HPI-Cardiology Cardiology Consultation Date of Consultation 10/12/20 Date of Admission Time Seen by Provider: 07:09 Indication: non-ST elevation myocardial infarction HPI 40 years old gentleman with history of coronary artery disease, had 2 stents in the LAD. Had multiple admissions in the past for recurrent chest pain and abnormal stress test, had a cardiac catheterization in July 2018 showing patent stent to be cardiac catheterization in November 2019 showing patent stents with no significant disease. Started to have chest pain with shortness of breath yesterday, reported that he fainted in the shower. Came into the [facility] room for evaluation, nitroglycerin did not help his pain but responded to morphine. On my evaluation he was having active chest pain. Reported feeling nauseous. Has been having waxing and waning pain. Reported to have elevated troponin. Home Medications & Allergies Allergies: Coded Allergies: tramadol (Verified Allergy, Intermediate, 07/27/18) SEIZURES amoxicillin (Verified Allergy, Mild, RASH, 07/27/18) erythromycin base (Verified Allergy, Unknown, 10/10/19) Home Medication List Reviewed: Yes YVB-[id number]-Fqxlhl Hx Patient Social History Alcohol Use: Denies Use Recreational Drug Use: No Drug of Choice: SMOKED METH AND THC Smoking Status: Never a Smoker Type Used: Smokeless Tobacco 2nd Hand Smoke Exposure: No Recent Foreign Travel: No Recent Infectious Disease Expo: No Recent Hopitalizations: No Immunizations Up To Date Tetanus Booster (TDap): Less than 5yrs Past Medical History Discussed below Family Medical History Family History: Cardiovascular disease 19 FATHER 19 MOTHER FH: CHF (congestive heart failure) 19 FATHER FH: throat cancer 19 MOTHER Review of Systems-General Review of Systems Constitutional: see HPI; No chills, No fever; malaise, weakness EENTM: see HPI, no symptoms reported Respiratory: see HPI; No cough; dyspnea on exertion; No hemoptysis, No orthopnea, No phlegm; short of breath; No stridor, No wheezing, No other Cardiovascular: see HPI, chest pain; No edema, No Hx of Intervention, No palpitations, No syncope, No vascular heart diseas, No other Gastrointestinal: no symptoms reported, see HPI Genitourinary: no symptoms reported, see HPI Musculoskeletal: no symptoms reported, see HPI Skin: no symptoms reported, see HPI Psychiatric/Neurological: See HPI, Anxiety All Other Systems Reviewed Negative Unless Noted: Yes Reviewed Test Results Reviewed Test Results Lab Laboratory Tests Test 10/11/20 14:10 10/11/20 16:30 10/12/20 03:04 Range/Units White Blood Count 7.6 7.2 4.3-11.0 10^3/uL Red Blood Count 4.43 4.05 L 4.30-5.52 10^6/uL Hemoglobin 13.7 12.4 L 13.3-17.7 g/dL Hematocrit 41 38 L 40-54 % Mean Corpuscular Volume 93 94 80-99 fL Mean Corpuscular Hemoglobin 31 31 25-34 pg Mean Corpuscular Hemoglobin Concent 33 33 32-36 g/dL Red Cell Distribution Width 11.8 11.9 10.0-14.5 % Platelet Count 338 276 130-400 10^3/uL Mean Platelet Volume 9.8 10.0 9.0-12.2 fL Immature Granulocyte % (Auto) 0 0 % Neutrophils (%) (Auto) 57 60 42-75 % Lymphocytes (%) (Auto) 30 27 12-44 % Monocytes (%) (Auto) 8 9 0-12 % Eosinophils (%) (Auto) 4 4 0-10 % Basophils (%) (Auto) 1 0 0-10 % Neutrophils # (Auto) 4.3 4.3 1.8-7.8 10^3/uL Lymphocytes # (Auto) 2.3 2.0 1.0-4.0 10^3/uL Monocytes # (Auto) 0.6 0.6 0.0-1.0 10^3/uL Eosinophils # (Auto) 0.3 0.3 0.0-0.3 10^3/uL Basophils # (Auto) 0.1 0.0 0.0-0.1 10^3/uL Immature Granulocyte # (Auto) 0.0 0.0 0.0-0.1 10^3/uL Prothrombin Time 13.1 12.2-14.7 SEC INR Comment 1.0 0.8-1.4 Activated Partial Thromboplast Time 20 L 24-35 SEC D-Dimer < 0.27 0.00-0.49 UG/ML Sodium Level 139 141 135-145 MMOL/L Potassium Level 4.1 3.9 3.6-5.0 MMOL/L Chloride Level 107 109 H 98-107 MMOL/L Carbon Dioxide Level 21 21 21-32 MMOL/L Anion Gap 11 11 5-14 MMOL/L Blood Urea Nitrogen 17 12 7-18 MG/DL Creatinine 1.14 0.94 0.60-1.30 MG/DL Estimat Glomerular Filtration Rate > 60 > 60 BUN/Creatinine Ratio 15 13 Glucose Level 129 H 122 H 70-105 MG/DL Calcium Level 8.2 L 7.7 L 8.5-10.1 MG/DL Corrected Calcium 8.4 L 8.3 L 8.5-10.1 MG/DL Magnesium Level 2.2 1.6-2.4 MG/DL Total Bilirubin 0.5 0.3 0.1-1.0 MG/DL Aspartate Amino Transf (AST/SGOT) 21 41 H 5-34 U/L Alanine Aminotransferase (ALT/SGPT) 38 33 0-55 U/L Alkaline Phosphatase 76 73 40-136 U/L Myoglobin 16.9 10.0-92.0 NG/ML Troponin I < 0.028 0.276 H 8.841 *H <0.028 NG/ML C-Reactive Protein High Sensitivity 0.26 0.00-0.50 MG/DL Total Protein 6.8 5.8 L 6.4-8.2 GM/DL Albumin 3.8 3.3 3.2-4.5 GM/DL Lipase 32 8-78 U/L Procalcitonin 0.08 <0.10 NG/ML Coronavirus 2019 (SPENSER) Negative Negative Triglycerides Level 96 <150 MG/DL Cholesterol Level 95 < 200 MG/DL LDL Cholesterol Direct 52 1-129 MG/DL VLDL Cholesterol 19 5-40 MG/DL HDL Cholesterol 29 L 40-60 MG/DL Physical Exam Physical Exam Vital Signs Vital Signs - First Documented 10/11/20 10/11/20 10/11/20 14:37 17:15 19:24 Temp 36.6 Pulse 65 Resp 20 B/P (MAP) 129/79 (96) Pulse Ox 97 O2 Delivery Room Air Capillary Refill : Less Than 3 SecondsLess Than 3 Seconds Height, Weight, BMI Height: 5'6.00" Weight: 220lbs. 13.4oz. 99.403379mk; 36.88 BMI Method:Stated General Appearance: No Apparent Distress, WD/WN Eyes: Bilateral Eye Normal Inspection, Bilateral Eye PERRL, Bilateral Eye EOMI HEENT: PERRL/EOMI, Pharynx Normal Neck: Non Tender, Supple Respiratory: Lungs Clear, Normal Breath Sounds, Other (Tender to anterior chest wall left external) Cardiovascular: Regular Rate, Rhythm, No Murmur Gastrointestinal: Non Tender, Soft Back: Normal Inspection, No CVA Tenderness, No Vertebral Tenderness Extremity: Normal Range of Motion, Non Tender Neurologic/Psychiatric: Alert, Oriented x3 Skin: Normal Color, Warm/Dry Lymphatic: No Adenopathy A/P-Cardiology Admission Diagnosis Non-ST elevation myocardial infarction Coronary artery disease Hypertension Hyperlipidemia Assessment/Plan Acute non-ST elevation myocardial infarction, received Lovenox and aspirin, planning to proceed with cardiac catheterization possible PTCA Coronary artery disease, history of 2 stents to the LAD done in the past. Had cardiac catheterization in July 2018 and November 2019 due to chest pain and both showed patent stents with small vessel disease. Had elevation in troponin today. I am planning to proceed with cardiac catheterization. Congestive heart failure, chronic compensated left ventricular systolic dysfunction, ischemic cardiomyopathy. Maintained on metoprolol and lisinopril Hypertension, restart home medication monitor blood pressure Hyperlipidemia, restart statin and monitor lipids Syncope, patient had syncopal episodes while in the shower prior to arriving to the emergency room. During the heart catheterization he was noted to have episodes of ventricular tachycardia. Severe cardiomyopathy. I will evaluate an echo and will consider placement of ICD Addendum on October 12, 2020 at 820 a.m. Cardiac catheterization was carried out showing patent stent with mild coronary artery disease nonobstructive disease, severe cardiomyopathy, ventricular tachycardia induced by catheter noted during test Clinical Quality Measures AMI/AHF: ASA po Prior to arrival: Yes DVT/VTE Risk/Contraindication: Risk Factor Score Per Nursin RFS Level Per Nursing on Admit: 1=Low/No VTE PPX PETRONA HERNANDEZ MD Oct 12, 2020 07:14
[2020-10-12] MEDS ORDERED: ALPRAZolam 0.25 MG (XANAX) TAB PO ONE (07:15)
--- NOTE | 2020-10-12 07:15 | Cardiac Procedure Note-CS/ASA ---
Pre-Procedure Note Pre-Op Procedure Note H&P Reviewed The H&P was reviewed, patient examined and no changes noted. Date H&P Reviewed: Oct 12, 2020 Time H&P Reviewed: 07:14 Conscious Sedation Pre-Proced Time 07:14 ASA Score 3 For ASA 3 and 4: Consider anesthesia and medical clearance. Also, for patients with a history of failed moderate sedation consider anesthesia. Airway Lungs Heart ASA score ASA 1: a normal healthy patient ASA 2: a patient with a mild systemic disease (mid diabetes, controlled hypertension, obesity x ASA 3: a patient with a severe systemic disease that limits activity (angina, COPD, prior Myocardial infarction) ASA 4: a patient with an incapacitating disease that is a constant threat to life (CHF, renal failure) ASA 5: a moribund patient not expected to survive 24 hrs. (ruptured aneurysm) ASA 6: a declared brain- patient whose organs are being harvested. For emergent operations, add the letter E after the classification Mallampati Classification Grade 3 Sedation Plan Analgesia, Amnesia, Plan communicated to team members, Discussed options with patient/fam, Discussed risks with patient/fam The patient is an appropriate candidate to undergo the planned procedure, sedation, and anesthesia. The patient immediately re-assessed prior to indication. PETRONA HERNANDEZ MD Oct 12, 2020 07:15
[2020-10-12] MEDS ORDERED: LIDOCAINE 1% INJ 20 ML 20 ML VIAL ONE (07:22)
[2020-10-12] MEDS ORDERED: MIDAZOLAM 5 MG/5 ML (VERSED) VIAL ONE (07:22)
[2020-10-12] MEDS ORDERED: HEParin (CATH LAB) 2,000 ML IV ONE (07:22)
[2020-10-12] MEDS ORDERED: NITRO DRIP 25000 MCG/D5W 0 ML IV ONE (07:22)
[2020-10-12] MEDS ORDERED: fentaNYL INJECTION 100 MCG/2 ML AMP ONE ×2 (07:22→11:22)
--- NOTE | 2020-10-12 07:26 | History & Physical-Hospitalist ---
History of Present Illness HPI/Chief Complaint CC: CP HPI: This is a 40yoWM clinic patient of [facility] who has a h/o CAD who presented with CP and required cardiac cath by Dr Aguilar. Patient just returned from cath without intervention required and is ready to go home once allowed after monitoring for right femoral hematoma. Source: patient Date Seen 10/12/20 Time Seen by a Provider: 11:00 Attending Physician Anila Quiles DO PCP Danny Razo MD Referring Physician Date of Admission Oct 11, 2020 at 17:22 Home Medications & Allergies Home Medications Reviewed patient Home Medication Reconciliation performed by pharmacy medication reconciliations identification technician and/or nursing. Patients Allergies have been reviewed. Allergies Allergies Coded Allergies tramadol (Verified Allergy, Intermediate, 07/27/18) SEIZURES amoxicillin (Verified Allergy, Mild, RASH, 07/27/18) erythromycin base (Verified Allergy, Unknown, 10/10/19) Past Gmttert-Yvlmio-Epgfqo Hx Past Med/Social Hx: Reviewed Nursing Past Med/Soc Hx, Reviewed and Corrections made Patient Social History Marrital Status: single Employed/Student: unemployed Alcohol Use: Denies Use Recreational Drug Use: No Drug of Choice: SMOKED METH AND THC Smoking Status: Never a Smoker Type Used: Smokeless Tobacco 2nd Hand Smoke Exposure: No Recent Foreign Travel: No Contact w/other who traveled: No Recent Hopitalizations: No Recent Infectious Disease Expo: No Immunizations Up To Date Tetanus Booster (TDap): Less than 5yrs Seasonal Allergies Seasonal Allergies: No Past Medical History Surgeries: Cardiac, Coronary Stent, Orthopedic Cardiac: Coronary Artery Disease, Heart Attack, Heart Murmur, High Cholesterol, Hypertension, Irregular Heartbeat Neurological: Headaches /Migraines Genitourinary: Kidney Stones Gastrointestinal: Gastroesophageal Reflux Musculoskeletal: Degenerate Disk Disease, Chronic Back Pain History of Blood Disorders: No Family History Reviewed Nursing Family Hx Cardiovascular disease 19 FATHER 19 MOTHER FH: CHF (congestive heart failure) 19 FATHER FH: throat cancer 19 MOTHER PSH: -CARDIAC CATHS WITH STENT IN 2007, AND ANOTHER STENT ( IN PREVIOUS STENT) IN 2014 -KINDEY STONE BASKET REMOVAL X 2, AND LITHOTRIPSY X 2 -BILATERAL KNEE SCOPES--RIGHT KNEE X 1 -1993, LEFT KNEE X 2--2006, 2014 Review of Systems Constitutional: see HPI Cardiovascular: chest pain Physical Exam Physical Exam Vital Signs Vital Signs - First Documented 11/10/11/20 10/11/20 14:37 17:15 19:24 Temp 36.6 Pulse 65 Resp 20 B/P (MAP) 129/79 (96) Pulse Ox 97 O2 Delivery Room Air Capillary Refill : Less Than 3 SecondsLess Than 3 Seconds Height, Weight, BMI Height: 5'6.00" Weight: 220lbs. 13.4oz. 99.[age]yo; 36.88 BMI Method:Stated General Appearance: No Apparent Distress Eyes: Right Eye Normal Inspection, Right Eye PERRL HEENT: PERRL/EOMI, TMs Normal, Normal ENT Inspection, Pharynx Normal, Moist Mucous Membranes Neck: Full Range of Motion, Normal Inspection, Non Tender Respiratory: Chest Non Tender, Lungs Clear, Normal Breath Sounds, No Accessory Muscle Use, No Respiratory Distress Cardiovascular: Regular Rate, Rhythm, No Edema, No Gallop, No JVD, No Murmur, Normal Peripheral Pulses Gastrointestinal: Normal Bowel Sounds, No Organomegaly, No Pulsatile Mass, Non Tender, Soft Back: Normal Inspection, No CVA Tenderness, No Vertebral Tenderness Extremity: Normal Capillary Refill, Normal Inspection, Normal Range of Motion, Non Tender, No Calf Tenderness, No Pedal Edema Neurologic/Psychiatric: Alert, Oriented x3, No Motor/Sensory Deficits, Normal Mood/Affect Skin: Normal Color, Warm/Dry Lymphatic: No Adenopathy Results Results/Procedures Labs Laboratory Tests 10/11/20 14:10 10/12/20 03:04 Patient resulted labs reviewed. Assessment/Plan Admission Diagnosis Assessment: Chest pain NSTEMI CAD with stents in past Plan: Cath performed DC home Admission Status: Inpatient Order (span 2 midnights) Reason for Inpatient Admission: NSTEMI Diagnosis/Problems Diagnosis/Problems (1) Non-ST elevation OR (NSTEMI) Status: Acute (2) CAD (coronary artery disease) Clinical Quality Measures AMI/AHF: ASA po Prior to arrival: Yes DVT/VTE Risk/Contraindication: Risk Factor Score Per Nursin RFS Level Per Nursing on Admit: 1=Low/No VTE PPX ANILA QUILES DO Oct 12, 2020 07:26
[2020-10-12] MEDS ORDERED: NS IV 1000 ML 1,000 ML IV SCH (08:15)
[2020-10-12] MEDS ORDERED: PATIENT MAY USE OWN MEDS, ALL PO SCH (08:15)
--- NOTE | 2020-10-12 08:23 | Cardiac Cath Report ---
Cardiac Cath Report Physician (s)/Crt (s) Physician PETRONA HERNANDEZ MD Pre-Procedure Diagnosis Pre-Procedure Diagnosis: non-ST elevation myocardial infarction Post-Procedure Note Procedure Start Date: Oct 12, 2020 Name of Procedure: Left heart catheterization Findings/Procedure Note PROCEDURE NOTE: 40 years old gentleman admitted with syncope and chest pain, no acute EKG changes, had elevation in troponin level. Discussed proceeding with cardiac catheterization. After explaining the procedure to the patient, all pros and cons were explained, all questions were answered. The patient signed the consent and then he was placed on the cardiac catheterization laboratory. Groin was prepped SL fashion local anesthesia was used. Sheath placed in the right femoral artery. Samra right and left catheter were used to access the coronary system. Pigtail was used to access the left ventricular cavity. Left ventriculogram was done At the end of the procedure the sheath was removed. Closure device was used FINDINGS: Hemodynamics LV 126/32, end-diastolic pressure of 30 to Aorta 132/91 mean of 110 ANATOMY: Left Main is almost absent, separate ostium of the LAD and circumflex artery Left Anterior Descending moderate in size, stent is patent, mild irregularity at the mid to distal portion nonobstructive disease Left Circumflex is moderate in size, dominant artery with no obstructive disease Right Coronory Artery is small nondominant artery with no obstructive disease LV Gram was done showing dilated left ventricle with diffuse left ventricular hypokinesia, estimated ejection fraction 30 percent CONCLUSION: 1. Severe cardiomyopathy with diffuse left ventricular hypokinesia EF 30 percent 2. Patent stent in the mid LAD, slow flow in the LAD due to small vessel disease nonobstructive disease 3. Dominant circumflex artery with nonobstructive disease, small nondominant right coronary artery with no obstructive disease 4. Short episode of ventricular tachycardia induced by catheter noted during the procedure improved after removing the catheter DISCUSSION AND RECOMMENDATION: Patient had patent coronary system, he reported chest pain and elevated cardiac enzymes in addition to syncope. He has severe cardiomyopathy, I am concerned about having malignant arrhythmia. I will evaluate echocardiogram and if his EF is below 35 percent proceed with single chamber ICD implant Anesthesia Type: Conscious Sedation Estimated blood loss (mL): 25 ml Contrast Amount: 57 ml Total Radiation Dose: 380 mGy Post-Procedure Diagnosis Post-operative diagnosis: Coronary artery disease Congestive heart failure Syncope Hypertension PETRONA HERNANDEZ MD Oct 12, 2020 08:23
[2020-10-12] MEDS ORDERED: lisINopril 5 MG (PRINIVIL) TABLET PO SCH (09:00)
[2020-10-12] MEDS: ASPIRIN E.C. 81 MG (ECOTRIN) TAB PO SCH (10:51)
[2020-10-12] MEDS: SENNA W/DOCUSATE (SENOKOT S) TABLET PO SCH (10:51)
[2020-10-12] MEDS ORDERED: fentaNYL INJECTION 100 MCG/2 ML AMP IVP PRN (11:30)
[2020-10-12] MEDS ORDERED: CLOP75TA28 PO (14:58)
--- NOTE | 2020-10-12 14:59 | Discharge Inst-Post CATH ---
Discharge Inst-CATH/EP Problems Reviewed?: Yes Post Cardiac Cath/EP D/C Inst Follow Up/Plan Appointment with Wildlife Conservationist in 2-4 weeks <b>CARDIAC CATH/EP PROCEDURE DISCHARGE INSTRUCTIONS</b> ACTIVITY * Go Home directly and rest. * Limit activity of the leg (or wrist if it was used) for 7 days including a erobics, swimming, jogging, bicycling, etc. * Restrict stair-climbing for 7 days if possible, if not, climb up with your non-cath leg, then bring together on the same step. * Avoid lifting, pushing, pulling or excessive movement of the affected extre mity for 7 days. * Customary sexual activity may be resumed after 2 days-use caution not to use a position that strains or causes pain to the affected extremity. * No driving for 24 hours. * NO SMOKING. * Avoid straining for bowel movements for 7 days. * Gentle walking on level ground is allowed. * Returning to work will depend on the type of procedure and the results. Your d octor will discuss this with you. CALL YOUR DOCTOR FOR ANY OF THE FOLLOWING: *If bleeding from the puncture site occurs- Apply gentle pressure to site with clean cloth and call your doctor or EMS. * If a knot or lump forms under the skin, increases in size, or causes pain. * If bruising appears to be worsening or moving further down your leg instead of disappearing. * Temperature above 101 F. CARE OF YOUR GROIN INCISION; * Bruising or purple discoloration of the skin near the puncture site is common. * You may shower only, no bathtub bathing for 5 days. Be careful to avoid slipping as your leg may feel stiff. * If a closure device was used on your femoral artery, please see the attached guide regarding care of the device and your leg. * Leave dressing on FOR 24 hours. CARE OF YOUR WRIST INCISION; * Bruising or purple discoloration of the skin near the puncture site is common. * You may shower. * DO NOT submerge wrist. * Leave dressing on FOR 24 hours. PETRONA HERNANDEZ MD Oct 12, 2020 14:59
[2020-10-12] MEDS ORDERED: CLOPIDOGREL 300 MG (PLAVIX) TABLET PO ONE (15:00)
[2020-10-13] MEDS ORDERED: CLOPIDOGREL 75 MG (PLAVIX) TABLET PO SCH (09:00)
--- NOTE | 2020-10-13 09:36 | Physician Query Clarification ---
PQ-Uncertain Diagnosis Admission/Discharge Admission Date: Oct 11, 2020 at 17:22 Discharge Date: Oct 12, 2020 at 16:05 Dr. Aguilar, The medical record reflects the following clinical scenario: History/Risk Factors: Hx NH, chronic systolic CHF, ischemic cardiomyopathy Clinical Findings: 10/11 troponin 0.028, 10/12 troponin 8.841 Treatment: heart cath, Lovenox Question: Is NSTEMI a clinically valid diagnosis? NSTEMI was documented in the H&P, cardiology consult and pre-procedural diagnosis on cath report with no further documentation in the medical record. Please document a response in Progress Note or Discharge Summary. 1. Yes, NSTEMI clinically valid, condition resolved. 2. No, NSTEMI ruled out. 3. Patient had NH type 2 (please indicate underlying cause) 4. No, NSTEMI ruled out. Chest pain undetermined etiology 5. Other, with explanation of clinical findings. 6. Undetermined, no explanation for clinical findings. PHYSICIAN RESPONSE Diagnosis clinically valid: Yes, Conditon resolved Please remember a lack of response to the above will prompt a phone page by CDI/Coding staff. In responding to this query, please exercise your independent professional judgment. The purpose of this communication is to more accurately reflect the complexity of your patients condition. The fact that a question is asked does not imply that any particular answer is desired or expected. Thank you for your timely response to this clarification. Requestors name: Ezra THIS PHYSICIAN QUERY FORM IS A PERMANENT PART OF THE MEDICAL RECORD EZRA SAINI Oct 13, 2020 09:36 PETRONA AGUILAR MD Oct 14, 2020 06:25
== END 2020-10-12 16:05 | disposition home or self-care (01) | DRG 281 ==
LOC: EDUNIT# 13:46 → ER 13:47 → CSD 17:22 → EDLOC 17:22
PROVIDERS: ADMIT Internal Medicine; ATTEND Internal Medicine
PROC: 4A023N7 Measurement of Cardiac Sampling and Pressure, Left Heart, Percutaneous Approach (ICD-10-PCS; principal; 2020-10-12)
PROC: B2111ZZ Fluoroscopy of Multiple Coronary Arteries using Low Osmolar Contrast (ICD-10-PCS; 2020-10-12)
PROC: B2151ZZ Fluoroscopy of Left Heart using Low Osmolar Contrast (ICD-10-PCS; 2020-10-12)
DX: I21.4 Non-ST elevation (NSTEMI) myocardial infarction (principal); I47.2 Ventricular tachycardia; I50.22 Chronic systolic (congestive) heart failure; R07.9 Chest pain, unspecified; I25.5 Ischemic cardiomyopathy; I11.0 Hypertensive heart disease with heart failure; I25.10 Atherosclerotic heart disease of native coronary artery without angina pectoris; E78.00 Pure hypercholesterolemia, unspecified; E78.5 Hyperlipidemia, unspecified; Z20.828 Contact with and (suspected) exposure to other viral communicable diseases; J45.909 Unspecified asthma, uncomplicated; K21.9 Gastro-esophageal reflux disease without esophagitis; M48.061 Spinal stenosis, lumbar region without neurogenic claudication; M51.26 Other intervertebral disc displacement, lumbar region; F17.290 Nicotine dependence, other tobacco product, uncomplicated; Z95.5 Presence of coronary angioplasty implant and graft; I25.2 Old myocardial infarction
CPT/HCPCS: 36415; 71045; 80053; 80061; 83690; 83735; 83874; 84145; 84484; 85025; 85379; 85610; 85730; 86141; 87635; 93005; 93041; 93306; 93458

== ENCOUNTER 2020-10-14 14:01 | Inpatient (IN) | payer OTHER ==
[~2020-10-14] VITALS: Ht 167 cm; Wt 101.1 kg
[~2020-10-14 14:01] MED LIST changes: +CLOP75TA28 PO
[2020-10-14] MEDS ORDERED: morphine INJ 10 MG/ML 1ML (SYR OR VIAL) IVP STA (14:03)
--- NOTE | 2020-10-14 14:08 | ED Chest Pain ---
General Chief Complaint: Chest Pain Stated Complaint: CHEST PAIN Nursing Triage Note: ARRIVED VIA EMS FROM HOME WITH COMPLAINTS OF CHEST PAIN STARTING 20 MINS DIE TROUBLE SHOOTER. RECENT HEART CATH. WAS GIVEN X2 NITRO AND X4 BABY ASA IN ROUTE WHICH DID NOT HELP. Nursing Sepsis Screen: No Definite Risk Source: patient Exam Limitations: no limitations History of Present Illness Date Seen by Provider: Oct 14, 2020 Time Seen by Provider: 14:06 Initial Comments To ER with reports of chest pain that began 20 minutes prior to arrival while at rest. The pain is described as a dull tight sensation. Nothing makes it better and nothing makes it worse. He arrives by EMS who gave 2 sublingual nitroglycerin and 4 baby aspirin in route to the hospital. The nitroglycerin did not help. He was discharged yesterday for NSTEMI, he is on Plavix but has not had a chance to fill it. Cardiac catheterization during that admission showed an ejection fraction reduced at 30%, patent stent in the mid LAD with slow flow and small vessel disease distally. Timing/Duration: 1/2 hour Severity/Quality: moderate Location: central Radiation: no radiation Activities at Onset: none ASA po DIE TROUBLE SHOOTER: Yes NTG SL DIE TROUBLE SHOOTER: Yes Allergies and Home Medications Allergies Coded Allergies: tramadol (Verified Allergy, Intermediate, 07/27/18) SEIZURES amoxicillin (Verified Allergy, Mild, RASH, 07/27/18) erythromycin base (Verified Allergy, Unknown, 10/10/19) Home Medications Acetaminophen with Codeine 1 Each Tablet, 2 EACH PO Q8H PRN for PAIN-MODERATE (5-7), (Reported) Aspirin 81 Mg Tablet.dr, 81 MG PO DAILY, (Reported) Atorvastatin Calcium 10 Mg Tablet, 10 MG PO HS Prescribed by: Stefany GLOVER on 11/19/19 1408 Clopidogrel Bisulfate 75 Mg Tablet, 75 MG PO DAILY Prescribed by: PETRONA HERNANDEZ on 10/12/20 1458 Famotidine 20 Mg Tablet, 20-40 MG PO HS PRN for HEARTBURN, (Reported) Gabapentin 300 Mg Capsule, 300 MG PO BID, (Reported) Lisinopril 5 Mg Tablet, 5 MG PO DAILY Prescribed by: Stefany GLOVER on 11/19/19 1410 Methylprednisolone 4 Mg Tab.ds.pk, 4 MG PO UD PER DOSE PACK INSTRUCTIONS Prescribed by: AURELIANO ALFARO on 3/12/20 1919 Metoprolol Succinate 25 Mg Tab.er.24h, 25 MG PO DAILY Prescribed by: Stefany GLOVER on 11/19/19 1411 Naproxen 500 Mg Tablet.dr, 500 MG PO BID, (Reported) Patient Home Medication List Home Medication List Reviewed: Yes Review of Systems Review of Systems Constitutional: see HPI EENTM: No Symptoms Reported Respiratory: No Symptoms Reported Cardiovascular: See HPI, Chest Pain Gastrointestinal: See HPI, Abdominal Pain Genitourinary: No Symptoms Reported Musculoskeletal: no symptoms reported Skin: no symptoms reported Psychiatric/Neurological: No Symptoms Reported Endocrine: No Symptoms Reported Hematologic/Lymphatic: No Symptoms Reported Past Qegbrgs-Gkiswi-Dpztws Hx Patient Social History Drug of Choice: SMOKED METH AND THC Type Used: Smokeless Tobacco 2nd Hand Smoke Exposure: No Recent Foreign Travel: No Contact w/Someone Who Travel: No Recent Infectious Disease Expo: No Recent Hopitalizations: No Immunizations Up To Date Tetanus Booster (TDap): Less than 5yrs Seasonal Allergies Seasonal Allergies: No Past Medical History Surgeries: Yes (SEE BELOW) Cardiac, Coronary Stent, Orthopedic Respiratory: Yes (DOES NOT HAVE AN INHALER) Asthma Cardiac: Yes (CLAIMS [place] X 2--STENT IN 2007, AND STENT IN STENT 2014) Coronary Artery Disease, Heart Attack, Heart Murmur, High Cholesterol, Hypertension, Irregular Heartbeat Neurological: Yes (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) Headaches /Migraines Genitourinary: Yes Kidney Stones Gastrointestinal: Yes Gastroesophageal Reflux Musculoskeletal: Yes (lumbar spinal stenosis and disc bulging) Degenerate Disk Disease, Chronic Back Pain Endocrine: No HEENT: No Cancer: No Psychosocial: No Integumentary: No Blood Disorders: No Family Medical History Cardiovascular disease 19 FATHER 19 MOTHER FH: CHF (congestive heart failure) 19 FATHER FH: throat cancer 19 MOTHER PSH: -CARDIAC CATHS WITH STENT IN 2007, AND ANOTHER STENT ( IN PREVIOUS STENT) IN 2014 -KINDEY STONE BASKET REMOVAL X 2, AND LITHOTRIPSY X 2 -BILATERAL KNEE SCOPES--RIGHT KNEE X 1 -1993, LEFT KNEE X 2--2006, 2014 Physical Exam Vital Signs Vital Signs - First Documented 10/14/20 14:01 Temp 36.1 Pulse 96 Resp 16 B/P (MAP) 126/90 (102) Pulse Ox 96 O2 Delivery Room Air Capillary Refill : Less Than 3 Seconds Height, Weight, BMI Height: 5'6.00" Weight: 220lbs. 13.4oz. 99.706232ao; 35.00 BMI Method:Stated General Appearance: No Apparent Distress, WD/WN, Obese, Other (Very pleasant) Respiratory: Lungs Clear, Normal Breath Sounds, No Accessory Muscle Use, No Respiratory Distress Cardiovascular: Regular Rate, Rhythm, Normal Peripheral Pulses Gastrointestinal: Normal Bowel Sounds, Non Tender, Soft Extremity: Normal Capillary Refill, Normal Inspection Neurologic/Psychiatric: Alert, Oriented x3 Skin: Normal Color, Warm/Dry Progress/Results/Core Measures Results/Orders Lab Results Laboratory Tests Test 10/14/20 14:05 10/14/20 15:58 Range/Units White Blood Count 7.1 4.3-11.0 10^3/uL Red Blood Count 4.57 4.30-5.52 10^6/uL Hemoglobin 14.4 13.3-17.7 g/dL Hematocrit 42 40-54 % Mean Corpuscular Volume 92 80-99 fL Mean Corpuscular Hemoglobin 32 25-34 pg Mean Corpuscular Hemoglobin Concent 34 32-36 g/dL Red Cell Distribution Width 11.8 10.0-14.5 % Platelet Count 337 130-400 10^3/uL Mean Platelet Volume 9.6 9.0-12.2 fL Immature Granulocyte % (Auto) 0 % Neutrophils (%) (Auto) 71 42-75 % Lymphocytes (%) (Auto) 19 12-44 % Monocytes (%) (Auto) 7 0-12 % Eosinophils (%) (Auto) 2 0-10 % Basophils (%) (Auto) 0 0-10 % Neutrophils # (Auto) 5.0 1.8-7.8 10^3/uL Lymphocytes # (Auto) 1.4 1.0-4.0 10^3/uL Monocytes # (Auto) 0.5 0.0-1.0 10^3/uL Eosinophils # (Auto) 0.2 0.0-0.3 10^3/uL Basophils # (Auto) 0.0 0.0-0.1 10^3/uL Immature Granulocyte # (Auto) 0.0 0.0-0.1 10^3/uL Prothrombin Time 13.4 12.2-14.7 SEC INR Comment 1.0 0.8-1.4 Activated Partial Thromboplast Time 24 24-35 SEC Sodium Level 138 135-145 MMOL/L Potassium Level 4.1 3.6-5.0 MMOL/L Chloride Level 107 98-107 MMOL/L Carbon Dioxide Level 23 21-32 MMOL/L Anion Gap 8 5-14 MMOL/L Blood Urea Nitrogen 12 7-18 MG/DL Creatinine 1.03 0.60-1.30 MG/DL Estimat Glomerular Filtration Rate > 60 BUN/Creatinine Ratio 12 Glucose Level 117 H 70-105 MG/DL Calcium Level 8.9 8.5-10.1 MG/DL Corrected Calcium 8.9 8.5-10.1 MG/DL Magnesium Level 2.2 1.6-2.4 MG/DL Total Bilirubin 0.5 0.1-1.0 MG/DL Aspartate Amino Transf (AST/SGOT) 42 H 5-34 U/L Alanine Aminotransferase (ALT/SGPT) 52 0-55 U/L Alkaline Phosphatase 84 40-136 U/L Myoglobin 25.7 10.0-92.0 NG/ML Troponin I 3.294 *H 3.591 *H <0.028 NG/ML B-Type Natriuretic Peptide 51.3 <100.0 PG/ML Total Protein 7.2 6.4-8.2 GM/DL Albumin 4.0 3.2-4.5 GM/DL My Orders Orders - KAYLA TO APRN Cbc With Automated Diff (10/14/20 14:03) Magnesium (10/14/20 14:03) Chest 1 View, Ap/Pa Only (10/14/20 14:03) Ekg Tracing (10/14/20 14:03) Comprehensive Metabolic Panel (10/14/20 14:03) Myoglobin Serum (10/14/20 14:03) Protime With Inr (10/14/20 14:03) Partial Thromboplastin Time (10/14/20 14:03) O2 (10/14/20 14:03) Monitor-Rhythm Ecg Trace Only (10/14/20 14:03) Lipid Panel (10/15/20 06:00) Ed Iv/Invasive Line Start (10/14/20 14:03) BNP (10/14/20 14:03) Troponin I (10/14/20 14:03) Clopidogrel Tablet (Plavix Tablet) (10/14/20 14:15) Morphine Injection (Morphine Injection (10/14/20 14:03) Ketorolac Injection (Toradol Injection) (10/14/20 14:15) Lorazepam Injection (Ativan Injection) (10/14/20 14:30) Ct Angio Chest W (10/14/20 14:50) Antacid Suspension (Mylanta Suspension (10/14/20 15:00) Lidocaine 2% Viscous 15 Ml (Xylocaine Vi (10/14/20 15:00) Iohexol Injection (Omnipaque 350 Mg/Ml 1 (10/14/20 15:30) Received Contrast (Hold Metformin- Contr (10/14/20 15:30) Sodium Chloride Flush (Catheter Flush Sy (10/14/20 15:30) Ns (Ivpb) (Sodium Chloride 0.9% Ivpb Bag (10/14/20 15:30) Troponin I (10/14/20 15:32) Nitroglycerin 0.4 Mg Btl 25's (Nitrostat (10/14/20 16:30) Fentanyl Injection (Sublimaze Injection (10/14/20 16:30) Fentanyl Injection (Sublimaze Injection (10/14/20 16:45) Enoxaparin Injection (Lovenox Injection) (10/14/20 16:45) Medications Given in ED Current Medications Medications Dose Ordered Sig/Faisal Route Start Time Stop Time Status Last Admin Dose Admin Al Hydrox/Mg Hydrox/Simethicone 30 ml ONCE ONCE PO 10/14/20 15:00 10/14/20 15:01 DC 10/14/20 14:57 30 ML Clopidogrel Bisulfate 75 mg ONCE ONCE PO 10/14/20 14:15 10/14/20 14:16 DC 10/14/20 14:11 75 MG Fentanyl Citrate 50 mcg ONCE ONCE IVP 10/14/20 16:30 10/14/20 16:31 DC 10/14/20 16:41 50 MCG Iohexol 100 ml ONCE ONCE IV 10/14/20 15:30 10/14/20 15:31 DC 10/14/20 15:19 82 ML Ketorolac Tromethamine 15 mg ONCE ONCE IVP 10/14/20 14:15 10/14/20 14:16 DC 10/14/20 14:11 15 MG Lidocaine HCl 10 ml ONCE ONCE PO 10/14/20 15:00 10/14/20 15:01 DC 10/14/20 14:57 10 ML Lorazepam 0.5 mg ONCE PRN IVP 10/14/20 14:30 10/14/20 14:38 0.5 MG Nitroglycerin PHARMACY TO DOSE PRN PRN SL 10/14/20 16:30 10/14/20 16:22 0.4 MG Sodium Chloride 10 ml NEEDED PRN IV 10/14/20 15:30 10/14/20 15:19 10 ML Sodium Chloride 100 ml ONCE ONCE IV 10/14/20 15:30 10/14/20 15:31 DC 10/14/20 15:19 80 ML Vital Signs/I&O 10/14/20 14:01 Temp 36.1 Pulse 96 Resp 16 B/P (MAP) 126/90 (102) Pulse Ox 96 O2 Delivery Room Air Blood Pressure Mean: 102 Progress Progress Note : Progress Note NAME: ANNALISA OLIVIER MED REC#: [id number] PT STATUS: REG ER : 1980 PHYSICIAN: KAYLA TO PRINCIPAL PROGRAMMER ADMIT DATE: 10/14/20/ER Draft Date of Exam:10/14/20 CT ANGIO CHEST W PROCEDURE: CT angiography of the chest with contrast. TECHNIQUE: Multiple contiguous axial images were obtained through the chest after uneventful bolus administration of intravenous contrast. 3D reconstructed CTA MIP acquisitions were also performed. Auto Exposure Controls were utilized during the CT exam to meet ALARA standards for radiation dose reduction. INDICATION: Chest pain. Shortness of breath. FINDINGS: Good opacification of the aorta and pulmonary arteries. No evidence of aortic aneurysm or dissection. Pulmonary arteries are well opacified. There are no filling defects to indicate pulmonary emboli. The lungs are well aerated and clear. No pneumothorax or pleural effusion. No mediastinal or hilar adenopathy. No bony lesions demonstrated. There is noted cardiac stent in the left main and left anterior descending coronary artery. IMPRESSION: 1. No evidence of pulmonary emboli. 2. The lungs are well aerated and clear. Dictated on workstation # [id number] Dict: 10/14/20 1530 Trans: 10/14/20 1533 [id number] Interpreted by: RAUL US MD Electronically signed by: Departure Communication (Admissions) 4445-troponin is still elevated but down from what it was a few days ago. He is much more calm, no longer crying. Still rates his pain at 8 out of 10 despite Toradol and morphine. I will get a CT angio of the chest to evaluate the aorta. We will also order GI cocktail. 165-troponin bumped from 3.29 to 3.51 at the 2-hour steffany. He still rates his chest pain at 7 out of 10 despite a GI cocktail Ativan morphine fentanyl Toradol. Reports that the Ativan did help a lot with his anxiety. Post myocardial infarction pericarditis would be a possibility Impression Primary Impression: CAD (coronary artery disease) Additional Impressions: Chest pain Ischemic cardiomyopathy Disposition: ADMITTED INPATIENT Condition: Stable Admissions Decision to Admit Reason: Admit from ER (General) Decision to Admit/Date: Oct 14, 2020 Time/Decision to Admit Time: 16:56 Departure-Patient Inst. Referrals: JO LYNNE MD (PCP/Family) Primary Care Physician KAYLA TO APRN Oct 14, 2020 14:08
[2020-10-14 14:13] LABS: BASOPHILS % (AUTO) 0 % (0-10); EOSINOPHILS # (AUTO) 0.2 10^3/uL (0.0-0.3); EOSINOPHILS % (AUTO) 2 % (0-10); HEMATOCRIT 42 % (40-54); HEMOGLOBIN 14.4 g/dL (13.3-17.7); LYMPHOCYTES # (AUTO) 1.4 10^3/uL (1.0-4.0); LYMPHOCYTES % (AUTO) 19 % (12-44); MEAN CORPUSCULAR HEMOGLOBIN 32 pg (25-34); MEAN CORPUSCULAR HGB CONC 34 g/dL (32-36); MEAN CORPUSCULAR VOLUME 92 fL (80-99); MEAN PLATELET VOLUME 9.6 fL (9.0-12.2); MONOCYTES # (AUTO) 0.5 10^3/uL (0.0-1.0); MONOCYTES % (AUTO) 7 % (0-12); NEUTROPHILS % (AUTO) 71 % (42-75); PLATELET COUNT 337 10^3/uL (130-400); WHITE BLOOD COUNT 7.1 10^3/uL (4.3-11.0)
[2020-10-14] MEDS ORDERED: CLOPIDOGREL 75 MG (PLAVIX) TABLET PO ONE (14:15)
[2020-10-14] MEDS ORDERED: KETOROLAC 30 MG/ML VIAL IVP ONE (14:15)
--- NOTE | 2020-10-14 14:18 | NUR ---
PT VERY TEARFUL. STATES HE IS SCARED ET DOES NOT WANT TO . SAT WITH PT FOR A WHILE. KAYLA NOTIFIED.
[2020-10-14 14:26] LABS: PROTHROMBIN TIME PATIENT 13.4 SEC (12.2-14.7)
[2020-10-14 14:28] LABS: CHLORIDE 107 MMOL/L (98-107); POTASSIUM 4.1 MMOL/L (3.6-5.0); SODIUM 138 MMOL/L (135-145)
[2020-10-14 14:29] LABS: CALCIUM 8.9 MG/DL (8.5-10.1)
[2020-10-14 14:30] LABS: GLUCOSE 117 MG/DL (70-105); TOTAL PROTEIN 7.2 GM/DL (6.4-8.2)
[2020-10-14] MEDS ORDERED: LORazepam INJ 2 MG/ML (ATIVAN) VIAL IVP PRN (14:30)
[2020-10-14 14:31] LABS: CARBON DIOXIDE 23 MMOL/L (21-32)
[2020-10-14 14:32] LABS: BILIRUBIN,TOTAL 0.5 MG/DL (0.1-1.0)
[2020-10-14 14:34] LABS: ALKALINE PHOSPHATASE 84 U/L (40-136); CREATININE SERUM 1.03 MG/DL (0.60-1.30); GFR ESTIMATED > 60
[2020-10-14 14:35] LABS: BUN/CREATININE RATIO 12
[2020-10-14 14:37] LABS: ALANINE AMINOTRANSFERASE 52 U/L (0-55); MAGNESIUM 2.2 MG/DL (1.6-2.4)
[2020-10-14] MEDS ORDERED: LIDOCAINE 2% VISCOUS 15 ML UDC PO ONE (15:00)
[2020-10-14] MEDS ORDERED: ANTACID SUSP 30 ML UDC (MYLANTA) PO ONE (15:00)
[2020-10-14] MEDS ORDERED: NS 100 ML (IVPB) BAG IV ONE (15:30)
[2020-10-14] MEDS ORDERED: IOHEXOL 350 MG/ML 100 ML (OMNIPAQUE 350) VIAL IV ONE (15:30)
[2020-10-14] MEDS ORDERED: HOLD METFORMIN - RECEIVED CONTRAST 20 ML VIAL IV SCH (15:30)
[2020-10-14] MEDS ORDERED: CATHETER FLUSH 10 ML SYR IV PRN (15:30)
--- NOTE | 2020-10-14 15:31 | Diagnostic Imaging Report ---
INDICATION: Chest pain. COMPARISON: 10/01/2020. FINDINGS: Portable chest. The lungs are well aerated and clear. There is no pneumothorax or pleural effusions. Heart is not enlarged. No hilar adenopathy. No bony abnormalities. IMPRESSION: Normal portable chest. Dictated by: Dictated on workstation # [id number]
--- NOTE | 2020-10-14 15:34 | Diagnostic Imaging Report ---
PROCEDURE: CT angiography of the chest with contrast. TECHNIQUE: Multiple contiguous axial images were obtained through the chest after uneventful bolus administration of intravenous contrast. 3D reconstructed CTA MIP acquisitions were also performed. Auto Exposure Controls were utilized during the CT exam to meet ALARA standards for radiation dose reduction. INDICATION: Chest pain. Shortness of breath. FINDINGS: Good opacification of the aorta and pulmonary arteries. No evidence of aortic aneurysm or dissection. Pulmonary arteries are well opacified. There are no filling defects to indicate pulmonary emboli. The lungs are well aerated and clear. No pneumothorax or pleural effusion. No mediastinal or hilar adenopathy. No bony lesions demonstrated. There is noted cardiac stent in the left main and left anterior descending coronary artery. IMPRESSION: 1. No evidence of pulmonary emboli. 2. The lungs are well aerated and clear. Dictated by: Dictated on workstation # [id number]
[2020-10-14] MEDS ORDERED: fentaNYL INJECTION 100 MCG/2 ML AMP IVP ONE ×2 (16:30→16:45)
[2020-10-14] MEDS ORDERED: NITROGLYCERIN 0.4 MG SL TABS BTL 25'S SL PRN (16:30)
[2020-10-14] MEDS ORDERED: ENOXAPARIN 100 MG/1 ML (LOVENOX) SYR SC ONE (16:45)
[2020-10-14] MEDS ORDERED: LACTATED RINGERS 1,000 ML IV ONE (18:12)
[2020-10-14] MEDS: LACTATED RINGERS 1,000 ML IV SCH (18:24)
--- NOTE | 2020-10-14 18:25 | NUR ---
ANNALISA OLIVIER admitted to room 508-1, with an admitting diagnosis of chest pain , on 10/14/20 from ER via wheel chair , accompanied by staff.ANNALISA OLIVIER introduced to surroundings, call light, bed controls, phone, TV, temperature control, lights, meal times, smoking policy, visitor policy, side rail policy, bathrooms and showers. Patient Rights given to patient in the handbook. ANNALISA OLIVIER verbalizes understanding that [facility] is not responsible for the loss or damage to any personal effects or valuables that are kept in the patients posession during their hospitalization. The following Patient Care Plans and discharge were discussed with the patient ANNALISA OLIVIER verbalizes understanding of Interdisciplinary Patient Education. Patient was informed about the Rapid Response Team and its purpose.
[2020-10-14] MEDS ORDERED: ONDANSETRON 4 MG/2 ML (SDV) Z0FRAN IVP PRN ×2 (18:30→19:45)
[2020-10-14] MEDS ORDERED: LORazepam INJ 2 MG/ML (ATIVAN) VIAL IV PRN (18:30)
[2020-10-14] MEDS ORDERED: HYDROcodone/APAP 5 MG/325 MG (LORTAB) TAB PO PRN (19:45)
[2020-10-14] MEDS ORDERED: CALCIUM CARBONATE 500 MG (TUMS) TAB.CHEW PO PRN (19:45)
[2020-10-14] MEDS ORDERED: diphenhydrAMINE 25 MG TAB (BENADRYL) PO PRN (19:45)
[2020-10-14] MEDS ORDERED: DOCUSATE SODIUM 100 MG (COLACE) CAP PO PRN (19:45)
[2020-10-14] MEDS ORDERED: LOPERAMIDE 2 MG (IMODIUM) TABLET PO PRN (19:45)
[2020-10-14 20:00] VITALS: BP 126/82
[2020-10-14] MEDS: morphine INJ 4 MG/ML 1 ML (VIAL/SYRINGE) IV PRN (20:26)
[2020-10-14] MEDS: SENNA W/DOCUSATE (SENOKOT S) TABLET PO SCH (20:28)
[2020-10-14 23:42] VITALS: BP 140/91
[2020-10-15] MEDS: morphine INJ 4 MG/ML 1 ML (VIAL/SYRINGE) IV PRN ×7 (03:37→21:03)
[2020-10-15 03:40] VITALS: BP 121/81
[2020-10-15 04:20] LABS: BASOPHILS % (AUTO) 0 % (0-10); EOSINOPHILS # (AUTO) 0.3 10^3/uL (0.0-0.3); EOSINOPHILS % (AUTO) 3 % (0-10); HEMATOCRIT 43 % (40-54); HEMOGLOBIN 14.2 g/dL (13.3-17.7); LYMPHOCYTES # (AUTO) 2.5 10^3/uL (1.0-4.0); LYMPHOCYTES % (AUTO) 29 % (12-44); MEAN CORPUSCULAR HEMOGLOBIN 31 pg (25-34); MEAN CORPUSCULAR HGB CONC 33 g/dL (32-36); MEAN CORPUSCULAR VOLUME 94 fL (80-99); MEAN PLATELET VOLUME 9.7 fL (9.0-12.2); MONOCYTES # (AUTO) 0.7 10^3/uL (0.0-1.0); MONOCYTES % (AUTO) 8 % (0-12); NEUTROPHILS # (AUTO) 5.1 10^3/uL (1.8-7.8); NEUTROPHILS % (AUTO) 59 % (42-75); PLATELET COUNT 320 10^3/uL (130-400); WHITE BLOOD COUNT 8.6 10^3/uL (4.3-11.0)
[2020-10-15 04:29] LABS: ALBUMIN 3.8 GM/DL (3.2-4.5); CHLORIDE 104 MMOL/L (98-107); POTASSIUM 3.8 MMOL/L (3.6-5.0); SODIUM 139 MMOL/L (135-145)
[2020-10-15 04:30] LABS: CALCIUM 8.6 MG/DL (8.5-10.1)
[2020-10-15 04:31] LABS: TRIGLYCERIDES 170 MG/DL (<150); VLDL CHOLESTEROL 34 MG/DL (5-40)
[2020-10-15 04:32] LABS: GLUCOSE 96 MG/DL (70-105); TOTAL PROTEIN 6.9 GM/DL (6.4-8.2)
[2020-10-15 04:33] LABS: BILIRUBIN,TOTAL 0.4 MG/DL (0.1-1.0); CARBON DIOXIDE 22 MMOL/L (21-32)
[2020-10-15 04:35] LABS: ALKALINE PHOSPHATASE 78 U/L (40-136); CREATININE SERUM 0.93 MG/DL (0.60-1.30); GFR ESTIMATED > 60
[2020-10-15 04:36] LABS: CHOLESTEROL 123 MG/DL (< 200)
[2020-10-15 04:37] LABS: BUN/CREATININE RATIO 15; HDL CHOLESTEROL 33 MG/DL (40-60)
[2020-10-15 04:38] LABS: ALANINE AMINOTRANSFERASE 55 U/L (0-55)
--- NOTE | 2020-10-15 05:37 | Short Stay Summary-Hospitalist ---
History of Present Illness HPI/Chief Complaint CC: Chest pain HPI: This is a 40yoWM who was homeless who presented to the ER with chest pain, just a few days after his last cardiac catheterization revealed no obstructive lesions who is currently still having a lot of pain, asking for narcotics for pain but will defer chest pain to cardiology. He is homeless, social work is working on getting him access to cardiac medications. Echo is being performed now and a possibility with an EF of 30% he may require a defibrillator placed. Source: patient, RN/MD Exam Limitations: no limitations Date Seen 10/15/20 Time Seen by a Provider: 10:00 Attending Physician Anila Quiles DO PCP Danny Razo MD Referring Physician Date of Admission Oct 14, 2020 at 17:18 Home Medications & Allergies Home Medications Reviewed patient Home Medication Reconciliation performed by pharmacy medication reconciliations surface lay out technician and/or nursing. Patients Allergies have been reviewed. Allergies Allergies Coded Allergies tramadol (Verified Allergy, Intermediate, 07/27/18) SEIZURES amoxicillin (Verified Allergy, Mild, RASH, 07/27/18) erythromycin base (Verified Allergy, Unknown, 10/10/19) Past Yhegmcg-Pqqrmj-Hxrqav Hx Past Med/Social Hx: Reviewed Nursing Past Med/Soc Hx, Reviewed and Corrections made Patient Social History Marrital Status: single Employed/Student: unemployed Alcohol Use: Denies Use Recreational Drug Use: No (DENIES AT 10/14 VISIT) Drug of Choice: SMOKED METH AND THC Smoking Status: Never a Smoker Type Used: Smokeless Tobacco 2nd Hand Smoke Exposure: No Physical Abuse Screen: No Sexual Abuse: No Recent Foreign Travel: No Contact w/other who traveled: No Recent Hopitalizations: No Recent Infectious Disease Expo: No Immunizations Up To Date Tetanus Booster (TDap): Less than 5yrs Seasonal Allergies Seasonal Allergies: No Past Medical History Surgeries: Cardiac, Coronary Stent, Orthopedic Cardiac: Coronary Artery Disease, Heart Attack, Heart Murmur, High Cholesterol, Hypertension, Irregular Heartbeat Neurological: Headaches /Migraines Genitourinary: Kidney Stones Gastrointestinal: Gastroesophageal Reflux Musculoskeletal: Degenerate Disk Disease, Chronic Back Pain History of Blood Disorders: No Family History Cardiovascular disease 19 FATHER 19 MOTHER FH: CHF (congestive heart failure) 19 FATHER FH: throat cancer 19 MOTHER PSH: -CARDIAC CATHS WITH STENT IN 2007, AND ANOTHER STENT ( IN PREVIOUS STENT) IN 2015 -KINDEY STONE BASKET REMOVAL X 2, AND LITHOTRIPSY X 2 -BILATERAL KNEE SCOPES--RIGHT KNEE X 1 -1993, LEFT KNEE X 2--2006, 2014 Review of Systems Constitutional: see HPI Cardiovascular: chest pain Physical Exam Physical Exam Vital Signs Vital Signs - First Documented 10/14/20 14:01 Temp 36.1 Pulse 96 Resp 16 B/P (MAP) 126/90 (102) Pulse Ox 96 O2 Delivery Room Air Capillary Refill : Less Than 3 Seconds Height, Weight, BMI Height: 5'6.00" Weight: 220lbs. 13.4oz. 99.674840is; 35.00 BMI Method:Stated General Appearance: No Apparent Distress, WD/WN, Chronically ill, Obese, Other (Very pleasant) Neck: Full Range of Motion, Normal Inspection, Non Tender, Supple, Carotid Bruit Respiratory: Lungs Clear, Normal Breath Sounds, No Accessory Muscle Use, No Respiratory Distress Cardiovascular: Regular Rate, Rhythm, Normal Peripheral Pulses Gastrointestinal: Normal Bowel Sounds, Non Tender, Soft Extremity: Normal Capillary Refill, Normal Inspection Neurologic/Psychiatric: Alert, Oriented x3 Skin: Normal Color, Warm/Dry Results Results/Procedures Labs Laboratory Tests 10/14/20 14:05 10/15/20 03:51 Patient resulted labs reviewed. Short Stay Diagnosis Discharge Diagnosis-Short Stay Admission Diagnosis Unstable angina Final Discharge Diagnosis Unstable angina Conclusion Plan Cardiology appreciated Diagnosis/Problems Diagnosis/Problems (1) Chest pain Status: Acute (2) CAD (coronary artery disease) (3) Ischemic cardiomyopathy Status: Acute (4) Anxiety Status: Chronic Clinical Quality Measures AMI/AHF: ASA po Prior to arrival: Yes DVT/VTE Risk/Contraindication: Risk Factor Score Per Nursin RFS Level Per Nursing on Admit: 2=Moderate ANILA QUILES DO Oct 15, 2020 05:37
[2020-10-15] MEDS ORDERED: ENOXAPARIN 100 MG/1 ML (LOVENOX) SYR SC SCH (06:00)
[2020-10-15] MEDS: LACTATED RINGERS 1,000 ML IV SCH ×2 (06:29→19:50)
[2020-10-15] MEDS: CLOPIDOGREL 75 MG (PLAVIX) TABLET PO SCH (07:55)
[2020-10-15] MEDS: lisINopril 5 MG (PRINIVIL) TABLET PO SCH (07:55)
[2020-10-15] MEDS: ASPIRIN 81 MG CHEW (CHILDREN'S ASA) PO SCH (07:55)
[2020-10-15] MEDS: SENNA W/DOCUSATE (SENOKOT S) TABLET PO SCH ×2 (07:55→20:56)
[2020-10-15 07:59] VITALS: BP 147/87
[2020-10-15] MEDS ORDERED: FAMOTIDINE 20 MG (PEPCID) TABLET PO PRN (08:45)
[2020-10-15] MEDS: ISOSORBIDE MONONITRATE 30 MG (IMDUR) TAB PO SCH (09:58)
[2020-10-15] MEDS: PANTOPRAZOLE 40 MG (PROTONIX) TAB PO SCH (09:58)
[2020-10-15] MEDS: RANOLAZINE ER 500 MG TAB (RANEXA) PO SCH ×2 (09:59→20:56)
--- NOTE | 2020-10-15 10:02 | NUR ---
CM/SS visited with patient for social service consult. The patient was lying in bed sitting up at time of visit. He reports he is "not doing well" today. Patient was emotional and crying during interview. Home: The patient is currently staying with his ex-girlfriend but reports he will be homeless tomorrow. He states that his ex-girlfriend broke up with him 3 weeks ago after being in a 3-year relationship. The patient states he moved here from [place] for this relationship. The patient does not have a vehicle. The patient reports he tried the [employer] but they sent him away. Resources: The patient reports he is working with [facility], social services that works with the Homeless. He does not remember her number. CM/SS reached out to [facility] to get the patient a current number to call and follow up today. CM/SS provided the patient with a list of Homeless resources and spoke about them in detail. CM/SS provided the patient with a [facility] application. Financial: The patient reports that he only has $18 at this time. 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 He states he does not have the money to pay for his medications. CM/SS will work with pharmacist to assist patient in affording medications. Court: The patient is supposed to have court via Zoom tomorrow at 11:00 a.m. He states he does not know if he will be able to attend it since he was in the hospital. CM/SS discussed being present due to having cell phone with him to participate. This Court meeting is for a restraining order that was filed from his ex-girlfriend. Supports: The patient reports that he does not have any friends or family in this area. CM/SS inquired further about support system here in town; however, he adamantly states it was just him, his ex, and her children. He will try and reach out to a couple of his friends from back home. CM/SS will continue to follow.
[2020-10-15 11:37] VITALS: BP 113/69
[2020-10-15] MEDS ORDERED: AMIT50TA3 PO (13:33)
[2020-10-15] MEDS ORDERED: MTP25TSR PO (13:33)
[2020-10-15] MEDS ORDERED: GABA300C PO (13:33)
[2020-10-15] MEDS ORDERED: RT-ALBUINH IH (13:33)
[2020-10-15] MEDS ORDERED: ACET1TAB43 PO (13:33)
[2020-10-15] MEDS ORDERED: ATOR40TA70 PO (13:33)
--- NOTE | 2020-10-15 13:35 | NUR ---
I SPOKE WITH THE PATIENT, AND CALLED [facility] TO COMPLETE THIS MED REC. FILL DATES FROM [facility]: 07/28/20 GABAPENTIN 300MG #90/30DS 07/28/20 AMITRIPTYLINE 50MG #/DS 07/28/20 ATORVASTATIN 4OMG #/DS 07/28/20 METOPROLOL TART 25MG #180 -PT TAKES DAILY WHILE DIRECTIONS ARE TO TAKE BID 07/28/20 NAPROXEN 500MG #60/30DS 07/28/20 PROAIR INH PT GETS AMITRIPTYLINE, ATORVASTATIN AND METOPROLOL FROM THE REPOSITORY PT STATES THAT HE IS COMPLETELY OUT OF ALL MEDICATIONS AND HAS BEEN OUT FOR A FEW WEEKS, BUT WITH THE FILL DATES I GOT FROM [facility] HE SHOULD STILL HAS SOME METOPROLOL, AMITRIPTYLINE AND ATORVASTATIN.
[2020-10-15] MEDS: ACETAMINOPHEN 500 MG TAB (TYLENOL) PO PRN ×2 (16:04→21:03)
--- NOTE | 2020-10-15 16:51 | Consultation-Cardiology ---
HPI-Cardiology Cardiology Consultation: Date of Consultation 10/15/20 Time Seen by a Provider: 09:00 Date of Admission Attending Physician Anila Quiles DO Admitting Physician Danny Razo MD Consulting Physician DAVID SANTIZO MD, MA, FACP, FACC, FSCAI, CCDS Primary claims adjustor: Dr Aguilar HPI: Chief Complaint: CC: Chest discomfort HPI 40 yo man with a h/o CAD admitted through ER with unremitting chest pain that has been present for many day: mid sternal and transthoracic, mild to severe, pressure-like, radiating to back, w/o aggravating or relieving factors, w/o other associated symptoms. Has chronic, exertional shortness of breath. Has gen malaise. Tires easily. Denies fever or chills. Denies leg swelling Review of Systems-Cardiology Review of Systems Constitutional: malaise, tiredness; No weight loss, No weight gain Eyes: No vision change Ears/Nose/Throat: No ear discharge, No nasal drainage; nose pain; No recent hearing loss Respiratory: As described under HPI Cardiovascular: As described under HPI Gastrointestinal: No diarrhea, No nausea, No vomiting Genitourinary: No dysuria, No hematuria Musculoskeletal: No joint pain, No muscle pain Skin: No rash, No ulcerations Psychiatric/Neurological: No seizure, No focal weakness, No syncope Hematologic: No bleeding abnormalities HHX-Ihvkjs-Zuqjnh Hx Patient Social History Alcohol Use: Denies Use Recreational Drug Use: No (DENIES AT 10/14 VISIT) Drug of Choice: SMOKED METH AND THC Smoking Status: Never a Smoker Type Used: Smokeless Tobacco 2nd Hand Smoke Exposure: No Recent Foreign Travel: No Recent Infectious Disease Expo: No Physical Abuse Screen: No Sexual Abuse: No Immunizations Up To Date Tetanus Booster (TDap): Less than 5yrs Past Medical History PMH As described under Assessment. Family Medical History Family History: Cardiovascular disease 19 FATHER 19 MOTHER FH: CHF (congestive heart failure) 19 FATHER FH: throat cancer 19 MOTHER Allergies and Home Medications Allergies Coded Allergies: tramadol (Verified Allergy, Intermediate, 07/27/18) SEIZURES amoxicillin (Verified Allergy, Mild, RASH, 07/27/18) erythromycin base (Verified Allergy, Unknown, 10/10/19) Home Medications Acetaminophen with Codeine 1 Each Tablet, 1 EACH PO Q6H PRN for PAIN-MODERATE (5-7), (Reported) Albuterol Sulfate 1 Puff Puff, 2 PUFF IH Q4H PRN for SHORTNESS OF BREATH, (Reported) 1 PUFF = 90 MCG Amitriptyline HCl 50 Mg Tablet, 50 MG PO HS, (Reported) Atorvastatin Calcium 40 Mg Tablet, 40 MG PO HS, (Reported) Famotidine 20 Mg Tablet, 20 MG PO HS PRN for HEARTBURN, (Reported) Gabapentin 300 Mg Capsule, 300 MG PO TID, (Reported) Metoprolol Succinate 25 Mg Tab.er.24h, 25 MG PO DAILY, (Reported) Naproxen 500 Mg Tablet.dr, 500 MG PO BID PRN for PAIN-MILD (1-4), (Reported) Patient Home Medication List Home Medication List Reviewed: Yes Physical Exam-Cardiology Physical Exam Vital Signs/I&O 10/15/20 10/15/20 10/15/20 10/15/20 06:40 07:59 08:00 08:00 Temp 36.0 Pulse 66 78 Resp 20 B/P (MAP) 147/87 (107) Pulse Ox 98 98 98 O2 Delivery Room Air Room Air Room Air 10/15/20 10/15/20 10/15/20 11:37 11:38 16:09 Temp 36.2 Pulse 70 Resp 18 B/P (MAP) 113/69 (84) Pulse Ox 96 O2 Delivery Room Air Room Air Room Air 10/15/20 00:00 Intake Total 1200 ml Balance 1200 ml Capillary Refill : Less Than 3 Seconds Constitutional: AAO x 3, well-developed, well-nourished HEENT: EOMI, hearing is well preserved; No xanthelasmas are seen Neck: carotid pulses are 2 + bilaterally Respiratory: No accessory muscle use; other (good bilat air entry) Cardiovascular: regular rate-rhythm, S1 and S2, systolic murmur (soft JOJO at card base) Gastrointestinal: No tender; soft; No guarding, No rebound; audible bowel sounds Extremities: No clubbing, No cyanosis, No significant edema Neurologic/Psychiatric: oriented x 3, other (moves all limbs equally) Skin: No rash on exposed areas, No ulcerations on exposed areas Data Review Labs Laboratory Tests 10/15/20 03:51: White Blood Count 8.6, Red Blood Count 4.60, Hemoglobin 14.2, Hematocrit 43, Mean Corpuscular Volume 94, Mean Corpuscular Hemoglobin 31, Mean Corpuscular Hemoglobin Concent 33, Red Cell Distribution Width 11.9, Platelet Count 320, Mean Platelet Volume 9.7, Immature Granulocyte % (Auto) 0, Neutrophils (%) (Auto) 59, Lymphocytes (%) (Auto) 29, Monocytes (%) (Auto) 8, Eosinophils (%) (Auto) 3, Basophils (%) (Auto) 0, Neutrophils # (Auto) 5.1, Lymphocytes # (Auto) 2.5, Monocytes # (Auto) 0.7, Eosinophils # (Auto) 0.3, Basophils # (Auto) 0.0, Immature Granulocyte # (Auto) 0.0, Sodium Level 139, Potassium Level 3.8, Chloride Level 104, Carbon Dioxide Level 22, Anion Gap 13, Blood Urea Nitrogen 14, Creatinine 0.93, Estimat Glomerular Filtration Rate > 60, BUN/Creatinine Ratio 15, Glucose Level 96, Calcium Level 8.6, Corrected Calcium 8.8, Total Bilirubin 0.4, Aspartate Amino Transf (AST/SGOT) 42H, Alanine Aminotransferase (ALT/SGPT) 55, Alkaline Phosphatase 78, Troponin I 4.136*H, Total Protein 6.9, Albumin 3.8, Triglycerides Level 170H, Cholesterol Level 123, LDL Cholesterol Direct 73, VLDL Cholesterol 34, HDL Cholesterol 33L Laboratory Tests 10/14/20 14:05 10/15/20 03:51 A/P-Cardiology Assessment/Admission Diagnosis Chest pain, probably partly cardiac Acute/recent NSTEMI related to small-vessel CAD CAD and h/o LAD stenting. Last card cath on 10/12/[address] Aguilar: Patent stent in the mid LAD, slow flow in the LAD due to small vessel disease nonobstructive disease; Dominant circumflex artery with nonobstructive disease, small nondominant right coronary artery with no obstructive disease Ischemic cardiomyopathy. LVEF reported to be 30% on card cath of 10/12/20; LVEF reported to be 50-55% on echo 10/12/20 (with grade 2 diastolic dysfunction and anteroapical hypokinesis) Denies any tobacco or drug use Discussion and Recomendations * Treat with DAPT and bb and HENRY inhib and Imdur and Ranexa * Monitor labs * Repeat echo to eval LVEF * Add antacids to the regimen Clinical Quality Measures AMI/AHF: ASA po Prior to arrival: Yes DVT/VTE Risk/Contraindication: Risk Factor Score Per Nursin RFS Level Per Nursing on Admit: 2=Moderate DAVID SANTIZO MD FACP FAC CCDS Oct 15, 2020 16:51
[2020-10-15 17:00] VITALS: BP 104/70
[2020-10-15 19:28] VITALS: BP 161/92
[2020-10-16] VITALS: BP 133/82
[2020-10-16] MEDS: morphine INJ 4 MG/ML 1 ML (VIAL/SYRINGE) IV PRN (00:52)
[2020-10-16 04:00] VITALS: BP 142/71
[2020-10-16 07:07] LABS: BASOPHILS % (AUTO) 0 % (0-10); EOSINOPHILS # (AUTO) 0.3 10^3/uL (0.0-0.3); EOSINOPHILS % (AUTO) 4 % (0-10); HEMATOCRIT 39 % (40-54); HEMOGLOBIN 12.9 g/dL (13.3-17.7); LYMPHOCYTES # (AUTO) 2.1 10^3/uL (1.0-4.0); LYMPHOCYTES % (AUTO) 26 % (12-44); MEAN CORPUSCULAR HEMOGLOBIN 31 pg (25-34); MEAN CORPUSCULAR HGB CONC 33 g/dL (32-36); MEAN CORPUSCULAR VOLUME 94 fL (80-99); MEAN PLATELET VOLUME 9.7 fL (9.0-12.2); MONOCYTES # (AUTO) 0.6 10^3/uL (0.0-1.0); MONOCYTES % (AUTO) 8 % (0-12); NEUTROPHILS # (AUTO) 5.1 10^3/uL (1.8-7.8); NEUTROPHILS % (AUTO) 62 % (42-75); PLATELET COUNT 289 10^3/uL (130-400); WHITE BLOOD COUNT 8.3 10^3/uL (4.3-11.0)
[2020-10-16 07:55] LABS: ALANINE AMINOTRANSFERASE 48 U/L (0-55); ALBUMIN 3.8 GM/DL (3.2-4.5); ALKALINE PHOSPHATASE 71 U/L (40-136); BILIRUBIN,TOTAL 0.3 MG/DL (0.1-1.0); BUN/CREATININE RATIO 11; CALCIUM 8.3 MG/DL (8.5-10.1); CARBON DIOXIDE 22 MMOL/L (21-32); CHLORIDE 104 MMOL/L (98-107); CREATININE SERUM 1.13 MG/DL (0.60-1.30); GFR ESTIMATED > 60; GLUCOSE 98 MG/DL (70-105); POTASSIUM 3.8 MMOL/L (3.6-5.0); SODIUM 138 MMOL/L (135-145); TOTAL PROTEIN 6.8 GM/DL (6.4-8.2)
[2020-10-16 08:30] VITALS: BP 153/86
--- NOTE | 2020-10-16 08:34 | Progress Note - Cardiology ---
Cardiology SOAP Progress Note Subjective: Lying in bed. C/O FUCHS. C/O increasing SOB this morning. No c/o CP or palpitations. Objective: I&O/Vital Signs Weight (Pounds): 220 Weight (Ounces): 13.4 Weight (Calculated Kilograms): 99.315870 Constitutional: AAO x 3, well-developed, well-nourished Respiratory: No accessory muscle use; other (good bilat air entry) Cardiovascular: regular rate-rhythm, S1 and S2, systolic murmur (soft JOJO at card base) Gastrointestional: No tender; soft; No guarding, No rebound; audible bowel sounds Extremities: No clubbing, No cyanosis, No significant edema Neurologic/Psychiatric: oriented x 3, other (moves all limbs equally) Skin: No rash on exposed areas, No ulcerations on exposed areas Results/Procedures: Labs A/P: Assessment: Chest pain, probably partly cardiac - resolved with addition of long-acting nitrate and Ranexa Acute/recent NSTEMI related to small-vessel CAD CAD and h/o LAD stenting. Last card cath on 10/12/[address] Aguilar: Patent stent in the mid LAD, slow flow in the LAD due to small vessel disease nonobstructive disease; Dominant circumflex artery with nonobstructive disease, small nondominant right coronary artery with no obstructive disease Ischemic cardiomyopathy. LVEF reported to be 30% on card cath of 10/12/20; LVEF reported to be 50-55% on echo 10/12/20 (with grade 2 diastolic dysfunction and anteroapical hypokinesis). Most recent echo of Oct 15, 2020 shows LVEF 45-50% Denies any tobacco or drug use Plan: * Continue with DAPT and bb and HENRY inhib and Imdur and Ranexa * Monitor labs * Add diuretics * Give IV Lasix today * Stop IVF * Monitor lab Clinical Quality Measures AMI/AHF: ASA po Prior to arrival: Yes JAYCE RUBIO Oct 16, 2020 08:34
[2020-10-16] MEDS ORDERED: FUROSEMIDE 40 MG/4 ML INJ (LASIX) IVP ONE (08:45)
[2020-10-16] MEDS ORDERED: ACETAMINOPHEN 500 MG TAB (TYLENOL) PO ONE (08:45)
[2020-10-16] MEDS: PANTOPRAZOLE 40 MG (PROTONIX) TAB PO SCH (09:30)
[2020-10-16] MEDS: CLOPIDOGREL 75 MG (PLAVIX) TABLET PO SCH (09:30)
[2020-10-16] MEDS: lisINopril 5 MG (PRINIVIL) TABLET PO SCH (09:30)
[2020-10-16] MEDS: RANOLAZINE ER 500 MG TAB (RANEXA) PO SCH (09:30)
[2020-10-16] MEDS: ISOSORBIDE MONONITRATE 30 MG (IMDUR) TAB PO SCH (09:30)
[2020-10-16] MEDS: SENNA W/DOCUSATE (SENOKOT S) TABLET PO SCH (09:30)
[2020-10-16] MEDS: ASPIRIN 81 MG CHEW (CHILDREN'S ASA) PO SCH (09:31)
[2020-10-16] MEDS ORDERED: ENOXAPARIN 40 MG/0.4 ML (LOVENOX) SYR SC SCH (10:00)
[2020-10-16] MEDS ORDERED: CLOP75TA28 PO (10:18)
[2020-10-16] MEDS ORDERED: RANO500T3 PO (10:18)
[2020-10-16] MEDS ORDERED: ASPI-999 PO (10:18)
[2020-10-16] MEDS ORDERED: LISI-556 PO (10:18)
[2020-10-16] MEDS ORDERED: PANT40TA52 PO (10:18)
[2020-10-16] MEDS ORDERED: ISOS30TA3 PO (10:18)
--- NOTE | 2020-10-16 10:47 | Discharge Summary ---
Discharge Summary Hospital Course Hospital Course Date of Admission: Oct 14, 2020 at 17:18 Admission Diagnosis : Family Physician/Provider: Danny Lynne MD Date of Discharge: 10/16/20 Discharge Diagnosis: Chest pain Elevated troponin Systolic congestive heart failure Hospital Course: Pt admitted and found to have elevated troponin but had catheterization within last several days showing patent stent in LAD and non-obstructive disease, Cardiology consulted and started medications for angina and lasix for systolic C HF (EF 45-50% on echo this stay) and he had improvement in symptoms and discharge was okay'ed by Cardiology. Labs and Pending Lab Test: Laboratory Tests 10/16/20 02:15: White Blood Count 8.3, Red Blood Count 4.19L, Hemoglobin 12.9L, Hematocrit 39L, Mean Corpuscular Volume 94, Mean Corpuscular Hemoglobin 31, Mean Corpuscular Hemoglobin Concent 33, Red Cell Distribution Width 11.9, Platelet Count 289, Mean Platelet Volume 9.7, Immature Granulocyte % (Auto) 0, Neutrophils (%) (Auto) 62, Lymphocytes (%) (Auto) 26, Monocytes (%) (Auto) 8, Eosinophils (%) (Auto) 4, Basophils (%) (Auto) 0, Neutrophils # (Auto) 5.1, Lymphocytes # (Auto) 2.1, Monocytes # (Auto) 0.6, Eosinophils # (Auto) 0.3, Basophils # (Auto) 0.0, Immature Granulocyte # (Auto) 0.0, Sodium Level 138, Potassium Level 3.8, Chlor brittany Level 104, Carbon Dioxide Level 22, Anion Gap 12, Blood Urea Nitrogen 12, Creatinine 1.13, Estimat Glomerular Filtration Rate > 60, BUN/Creatinine Ratio 11, Glucose Level 98, Calcium Level 8.3L, Corrected Calcium 8.5, Total Bilirubin 0.3, Aspartate Amino Transf (AST/SGOT) 30, Alanine Aminotransferase (ALT/SGPT) 48, Alkaline Phosphatase 71, Total Protein 6.8, Albumin 3.8 Home Meds Active Aspirin 81 Mg Tab.chew 81 Mg PO DAILY@0900 Pantoprazole Sodium 40 Mg Tablet.dr 40 Mg PO DAILY Lisinopril 5 Mg Tablet 5 Mg PO DAILY@0900 Isosorbide Mononitrate ER (Isosorbide Mononitrate) 30 Mg Tab.er.24h 30 Mg PO DAILY Ranexa (Ranolazine) 500 Mg Tab.er.12h 500 Mg PO BID Clopidogrel (Clopidogrel Bisulfate) 75 Mg Tablet 75 Mg PO DAILY Reported Proair Hfa (Albuterol Sulfate) 1 Puff Puff 2 Puff IH Q4H PRN 1 PUFF = 90 MCG Neurontin (Gabapentin) 300 Mg Capsule 300 Mg PO TID Amitriptyline HCl 50 Mg Tablet 50 Mg PO HS Atorvastatin Calcium 40 Mg Tablet 40 Mg PO HS Metoprolol Succinate 25 Mg Tab.er.24h 25 Mg PO DAILY Acetaminophen-Cod #3 Tablet (Acetaminophen with Codeine) 1 Each Tablet 1 Each PO Q6H PRN Famotidine 20 Mg Tablet 20 Mg PO HS PRN Naproxen 500 Mg Tablet.dr 500 Mg PO BID PRN Assessment/Pt DC Instructions Follow up with Dr. Lynne on 10/21 at 1:20 pm. Discharge Diet: Cardiac Diet Activity as Tolerated: Yes Discharge Physical Examination Allergies: Coded Allergies: tramadol (Verified Allergy, Intermediate, 07/27/18) SEIZURES amoxicillin (Verified Allergy, Mild, RASH, 07/27/18) erythromycin base (Verified Allergy, Unknown, 10/10/19) General Appearance: No Apparent Distress, WD/WN Respiratory: Lungs Clear, Normal Breath Sounds Cardiovascular: Regular Rate, Rhythm, No Edema, No Murmur Extremity: No Pedal Edema Skin: Normal Color, Warm/Dry, Tattoos/Piercings Neurologic/Psychiatric: Alert, Normal Mood/Affect Copy Copies To 1: DANNY LYNNE MD Clinical Quality Measures AMI/AHF: ASA po Prior to arrival: Yes DVT/VTE Risk/Contraindication: Risk Factor Score Per Nursin RFS Level Per Nursing on Admit: 2=Moderate DENEEN MARIA MD Oct 16, 2020 10:47
--- NOTE | 2020-10-16 12:35 | Progress Note - Cardiology ---
Cardiology SOAP Progress Note Subjective: Reports headache Mild shortness of breath No cp Gen malaise and weakness No n/v/d Objective: I&O/Vital Signs 10/16/20 10/16/20 10/16/20 10/16/20 01:00 04:00 04:00 06:42 Temp 36.5 Pulse 74 72 70 Resp 18 B/P (MAP) 142/71 (94) Pulse Ox 96 O2 Delivery Room Air Room Air 10/16/20 10/16/20 10/16/20 08:00 08:00 08:30 Temp 36.8 Pulse 73 Resp 16 B/P (MAP) 153/86 (108) Pulse Ox 97 93 O2 Delivery Room Air Room Air Room Air 10/16/20 00:00 Intake Total 2825 ml Balance 2825 ml Weight (Pounds): 220 Weight (Ounces): 13.4 Weight (Calculated Kilograms): 99.148278 Constitutional: AAO x 3, well-developed, well-nourished Respiratory: No accessory muscle use; other (good bilat air entry) Cardiovascular: regular rate-rhythm, S1 and S2, systolic murmur (soft JOJO at card base) Gastrointestional: No tender; soft; No guarding, No rebound; audible bowel sounds Extremities: No clubbing, No cyanosis, No significant edema Neurologic/Psychiatric: oriented x 3, other (moves all limbs equally) Skin: No rash on exposed areas, No ulcerations on exposed areas Results/Procedures: Labs Laboratory Tests 10/16/20 02:15: White Blood Count 8.3, Red Blood Count 4.19L, Hemoglobin 12.9L, Hematocrit 39L, Mean Corpuscular Volume 94, Mean Corpuscular Hemoglobin 31, Mean Corpuscular Hemoglobin Concent 33, Red Cell Distribution Width 11.9, Platelet Count 289, Mean Platelet Volume 9.7, Immature Granulocyte % (Auto) 0, Neutrophils (%) (Auto) 62, Lymphocytes (%) (Auto) 26, Monocytes (%) (Auto) 8, Eosinophils (%) (Auto) 4, Basophils (%) (Auto) 0, Neutrophils # (Auto) 5.1, Lymphocytes # (Auto) 2.1, Monocytes # (Auto) 0.6, Eosinophils # (Auto) 0.3, Basophils # (Auto) 0.0, Immature Granulocyte # (Auto) 0.0, Sodium Level 138, Potassium Level 3.8, Chloride Level 104, Carbon Dioxide Level 22, Anion Gap 12, Blood Urea Nitrogen 12, Creatinine 1.13, Estimat Glomerular Filtration Rate > 60, BUN/Creatinine Ratio 11, Glucose Level 98, Calcium Level 8.3L, Corrected Calcium 8.5, Total Bilirubin 0.3, Aspartate Amino Transf (AST/SGOT) 30, Alanine Aminotransferase (ALT/SGPT) 48, Alkaline Phosphatase 71, Total Protein 6.8, Albumin 3.8 Laboratory Tests 10/14/20 14:05 10/15/20 03:51 10/16/20 02:15 A/P: Assessment: Chest pain, probably partly cardiac - resolved with addition of long-acting nitrate and Ranexa Acute/recent NSTEMI related to small-vessel CAD CAD and h/o LAD stenting. Last card cath on 10/12/[address] Aguilar: Patent stent in the mid LAD, slow flow in the LAD due to small vessel disease nonobstructive disease; Dominant circumflex artery with nonobstructive disease, small nondominant right coronary artery with no obstructive disease Ischemic cardiomyopathy. LVEF reported to be 30% on card cath of 10/12/20; LVEF reported to be 50-55% on echo 10/12/20 (with grade 2 diastolic dysfunction and anteroapical hypokinesis). Most recent echo of Oct 15, 2020 shows LVEF 45-50% Denies any tobacco or drug use Plan: * Continue with DAPT and bb and HENRY inhib and Imdur and Ranexa * Monitor labs * Add diuretics * Give IV Lasix today * Stop IVF * Monitor lab * I had a long and detailed discussion with him and with Dr Wright regarding his CV issues * Compliance with meds advised * Close outpt f/u advised. Outpt cardiac f/u is with Dr Aguilar Clinical Quality Measures AMI/AHF: ASA po Prior to arrival: Yes DAVID SANTIZO MD FACP [facility] CCDS Oct 16, 2020 12:35
--- NOTE | 2020-10-16 16:13 | NUR ---
CM/SS Finalized discharge. Plan: The patient will discharge with a friend. Medications: The patient is set up with [facility] pharmacy through [facility][1]. CM/SS contacted the pharmacy to see if they have an assistance program for their patients. The worker reported they would be able to "charge" all of his new medications and will bill for payment at a later date. The worker also stated the patient did not have a financial application on file and should pick one up today to fill out. CM/SS discssed this with the patient and he verbalized understanding. Follow up: CM/SS provided the patient with [employer] work number. He left her number at home and is planning to call her today and follow up. The patient reports that she will assist him to get prison housing. [facility] works with the homeless here in [facility]. Housing: The patient reports that he still does not have a secure place to stay but was calling a "camelia" of his to seek a place to stay and a ride home. Cm/SS reminded him of the resources in [place] and [place] if needed. He verbalized understanding. Court: The patient did have court today at 11:00. He reports that the restraining order did not get granted and the judges advice was to "just stay away from each other". Financial: The patient has the financial application in the room and is going to send all the documents back through the mail. He was instructed to fill out the application for [facility][1]. No further needs.
[2020-10-17] MEDS ORDERED: FUROSEMIDE 40 MG (LASIX) TAB PO SCH (09:00)
--- NOTE | 2020-10-21 05:05 | Physician Query Clarification ---
PQ-CHF Specificity Admission Date: Oct 14, 2020 at 17:18 Discharge Date: Oct 16, 2020 at 16:30 DENEEN Law MD The medical record reflects the following clinical scenario: History/Risk Factors: 40 y/o male patient presents with chest pain found to have unstable angina. Short stay summary, 10/15: Unstable angina, CAD, ischemic cardiomyopathy. Cardiology progress notes, 10/15: Chest pain, probably partly cardiac - resolved with addition of long-acting nitrate and Ranexa, Acute/recent NSTEMI related to small-vessel CAD. Discharge summary, 10/16: started medications for angina and lasix for systolic CHF (EF 45-50% on echo this stay). Clinical Findings: EF-45-50%, BNP-51.3 Pg/ml Treatment: IV Lasix Question: Can you further specify the acuity &/or type of CHF per the clinical indicators above? Please document a response in the Progress Notes or Discharge Summary. 1. Acuity: Acute, Chronic or Acute on Chronic 2. Type: Systolic, Diastolic or Systolic & Diastolic 3. Unspecified: CHF cannot be further specified regarding type or acuity 4. Other, with explanation of clinical findings 5. Clinically undetermined, no explanation for clinical findings PHYSICIAN RESPONSE Acuity: Acute Type: Systolic & Diastolic Please remember a lack of response to the above will prompt a phone page by [facility] staff. In responding to this query, please exercise your independent professional judgment. The purpose of this communication is to more accurately reflect the complexity of your patients condition. The fact that a question is asked does not imply that any particular answer is desired or expected. Thank you for your timely response to this clarification. Requestors name: [ ] Phone # [ ] THIS PHYSICIAN QUERY FORM IS A PERMANENT PART OF THE MEDICAL RECORD PAULSAMARA Oct 21, 2020 05:05 DENEEN MARIA MD Oct 22, 2020 21:20
== END 2020-10-16 16:30 | disposition home or self-care (01) | DRG 280 ==
LOC: EDUNIT# 14:01 → ER 14:03 → CSD 17:18
PROVIDERS: ADMIT Internal Medicine; ATTEND Family Medicine
DX: I25.110 Atherosclerotic heart disease of native coronary artery with unstable angina pectoris (principal); I21.4 Non-ST elevation (NSTEMI) myocardial infarction; I50.41 Acute combined systolic (congestive) and diastolic (congestive) heart failure; I25.5 Ischemic cardiomyopathy; I25.2 Old myocardial infarction; Z95.5 Presence of coronary angioplasty implant and graft
CPT/HCPCS: 36415; 71045; 71275; 80053; 80061; 83735; 83874; 83880; 84484; 85025; 85610; 85730; 93005; 93041; 93306; 96372; 96374; 96375; 96376